=== PATIENT | female | born 1935 | race African-American/Black ===

== ENCOUNTER 2016-08-25 14:34 | Inpatient (IN) | payer OTHER ==
[~2016-08-25] VITALS: Ht 157.5 cm; Wt 73.9 kg
[~2016-08-25 14:34] MED LIST: ASPI81TA2 PO; ATOR20TA58 PO; DONE5TAB33 PO; FURO-68 PO; METO25TA4 PO; SENN8.6T99 PO; SERT100T PO
--- NOTE | 2016-08-25 14:45 | PHYS DOC ---
Past Medical History Past Medical History: Diabetes-Type II Additional Past Medical Histor: ALZHEIMER'S Past Surgical History: Other Additional Past Surgical Histo: UNKNOWN Alcohol Use: None Drug Use: None Adult General Chief Complaint Chief Complaint: SYNCOPE HPI HPI Patient is a 81 year old female who presents with syncope. She is a patient of Dr. Ryan who is a history of syncopal episodes. First and started around 2 months ago she was hospitalized and then had a non-STEMI and had a workup. She' s had 2 syncopal episodes recently the first one was on the are she was out for quite some while and then today again for approximately 30 minutes. According to her sister she was sitting at the table and this fell forward and passed out, the patient denies any neck pain or headache. She presented to Dr. Ryan's office who wanted her to be evaluated in the emergency department. Currently she denies any fevers chills nausea vomiting shortness of breath. He also complains about right thigh pain however she is on able to tell me how long this is been hurting her. According to her sister she is in a wheelchair and does not ambulate. She did have a stress test on her last hospital visit which is below. [facility] [address] [place], [place] [id number] IMAGING REPORT Signed PATIENT: DIVYA DALE ACCOUNT: [id number] : 1935 LOCATION: [address] [place] [address] AGE: 81 SEX: F EXAM STATUS: ADM IN ORD. PHYSICIAN: VAN CALLAHAN APRN REASON: NSTEMI PROCEDURE: Left Heart Catheterization &LV APPROVED REPORT Procedure(s) performed: Left heart catheterization, selective coronary angiography and left ventriculography via the right transradial approach INDICATION The indication(s) include : non-STEMI . PROCEDURE NARRATIVE After explaining the risks, benefits and alternative options, informed consent was obtained from patient. Patient was brought to the cardiac Visitor Services Coordinator and right wrist was prepped and draped in the usual fashion after confirming a positive modified Heath's test. Arterial access was obtained in the right radial artery and a 6 Romanian sheath was inserted. 6 Romanian JL 3.5 and 6 Romanian Gavino catheters were used to perform selective angiography of left and right coronary arteries. 6 Romanian pigtail catheter was used to perform left ventriculography. Patient tolerated the procedure well. Hemostasis was achieved using TR band. There were no immediate complications. The following findings were noted. FINDINGS 1. Hemodynamics: Left ventricular end-diastolic pressure of 17 mmHg. No pullback gradient across the aortic valve. 2. Left ventriculography: Normal left ventricle systolic function with ejection fraction estimated at 60-65%. No significant mitral regurgitation seen. 3. Coronary angiography: a. The left main coronary artery arose from the left sinus of Valsalva, gave rise to the left anterior descending and left circumflex arteries and did not show any significant stenosis. b. The left anterior descending artery showed 30% stenosis in the midsegment. c. The left circumflex artery did not show any significant stenosis. d. The right coronary artery was a large and dominant vessel arising from the right sinus of Valsalva that showed long 20-30% stenosis in the proximal to midsegment. Conclusion 1. No significant coronary artery disease 2. Normal left ventricle systolic function with ejection fraction estimated at 60-65% Recommendations Patient's non-STEMI could be secondary to vasospasm or thrombus that has been lysed. She does not have any lesions that need intervention. Recommend medical therapy. DICTATED and SIGNED BY: EV AVILA MD DATE: 06/03/16 1126 CC: VAN CALLAHAN APRN; EV AVILA MD; JADIEL RYAN MD ~ Review of Systems Review of Systems Constitutional: Denies fever or chills [] Eyes: Denies change in visual acuity, redness, or eye pain [] HENT: Denies nasal congestion or sore throat [] Respiratory: Denies cough or shortness of breath [] Cardiovascular: No additional information not addressed in HPI [] GI: Denies abdominal pain, nausea, vomiting, bloody stools or diarrhea [] : Denies dysuria or hematuria [] Musculoskeletal: Denies back pain or joint pain [] Integument: Denies rash or skin lesions [] Neurologic: Denies headache, focal weakness or sensory changes [] Endocrine: Denies polyuria or polydipsia [] Current Medications Current Medications Current Medications Medications (Trade) Dose Ordered Sig/Jesus Start Time Stop Time Status Last Admin Dose Admin Lorazepam (Ativan) 0.5 mg 1X ONCE 08/25/16 15:45 08/25/16 15:46 DC 08/25/16 15:46 0.5 MG Ondansetron HCl (Zofran) 4 mg PRN Q8HRS PRN 08/25/16 17:30 08/26/16 17:29 Allergies Allergies Allergies Coded Allergies Type Severity Reaction Last Updated Verified No Known Drug Allergies 06/02/16 No Physical Exam Physical Exam Constitutional: Well developed, well nourished, no acute distress, non-toxic appearance. [] HENT: Normocephalic, atraumatic, bilateral external ears normal, oropharynx moist, no oral exudates, nose normal. [] Eyes: PERRLA, EOMI, conjunctiva normal, no discharge. [] Neck: Normal range of motion, no tenderness, supple, no stridor. [] Cardiovascular:Heart rate regular rhythm, no murmur [] Lungs & Thorax: Bilateral breath sounds clear to auscultation [] Abdomen: Bowel sounds normal, soft, no tenderness, no masses, no pulsatile masses. [] Skin: Warm, dry, no erythema, no rash. [] Back: No tenderness, no CVA tenderness. [] Extremities: Tenderness palpation around the right thigh without any obvious deformity, no cyanosis, no clubbing, ROM intact, no edema. [] Neurologic: Alert and her active, normal motor function, normal sensory function , no focal deficits noted. [] Psychologic: Affect normal, judgement normal, mood normal. [] Current Patient Data Vital Signs Vital Signs Date Time Temp Pulse Resp B/P Pulse Ox O2 Delivery O2 Flow Rate FiO2 08/25/16 16:59 65 15 125/60 95 Room Air 08/25/16 14:37 97.9 97.9 Lab Values Laboratory Tests Test 08/25/16 15:20 08/25/16 15:45 Urine Collection Type U cath Urine Color Yellow Urine Clarity Clear Urine pH 5.0 Urine Specific [place] 1.010 Urine Protein Negativemg/dL (NEG-TRACE) Urine Glucose (UA) Negativemg/dL (NEG) Urine Ketones (Stick) Negativemg/dL (NEG) Urine Blood Trace (NEG) Urine Nitrite Negative (NEG) Urine Bilirubin Negative (NEG) Urine Urobilinogen Dipstick 0.2mg/dL (0.2 mg/dL) Urine Leukocyte Esterase Small (NEG) Urine RBC Occ/HPF (0-2) Urine WBC 1-4/HPF (0-4) Urine Squamous Epithelial Cells Mod/LPF Urine Bacteria 0/HPF (0-FEW) Urine Hyaline Casts Many/HPF White Blood Count 5.8x10^3/uL (4.0-11.0) Red Blood Count 3.91x10^6/uL (3.50-5.40) Hemoglobin 11.2g/dL (12.0-15.5) L Hematocrit 33.0% (36.0-47.0) L Mean Corpuscular Volume 84fL (79-100) Mean Corpuscular Hemoglobin 29pg (25-35) Mean Corpuscular Hemoglobin Concent 34g/dL (31-37) Red Cell Distribution Width 17.2% (11.5-14.5) H Platelet Count 227x10^3/uL (140-400) Neutrophils (%) (Auto) 69% (31-73) Lymphocytes (%) (Auto) 21% (24-48) L Monocytes (%) (Auto) 9% (0-9) Eosinophils (%) (Auto) 1% (0-3) Basophils (%) (Auto) 0% (0-3) Neutrophils # (Auto) 4.0x10^3uL (1.8-7.7) Lymphocytes # (Auto) 1.2x10^3/uL (1.0-4.8) Monocytes # (Auto) 0.5x10^3/uL (0.0-1.1) Eosinophils # (Auto) 0.1x10^3/uL (0.0-0.7) Basophils # (Auto) 0.0x10^3/uL (0.0-0.2) Prothrombin Time 12.9SEC (11.7-14.0) Prothrombin Time INR 1.0 (0.8-1.1) Sodium Level 139mmol/L (136-145) Potassium Level 3.6mmol/L (3.5-5.1) Chloride Level 103mmol/L (98-107) Carbon Dioxide Level 26mmol/L (21-32) Anion Gap 10 (6-14) Blood Urea Nitrogen 28mg/dL (7-20) H Creatinine 1.6mg/dL (0.6-1.0) H Estimated GFR (Cockcroft-Gault) 37.2 Glucose Level 94mg/dL (70-99) Calcium Level 9.1mg/dL (8.5-10.1) Magnesium Level 1.7mg/dL (1.8-2.4) L Total Bilirubin 0.4mg/dL (0.2-1.0) Direct Bilirubin 0.1mg/dL (0.0-0.2) Aspartate Amino Transferase (AST) 17U/L (15-37) Alanine Aminotransferase (ALT) 17U/L (14-59) Alkaline Phosphatase 74U/L (46-116) Creatine Kinase 53U/L (26-192) Creatine Kinase MB (Mass) < 0.5ng/mL (0.0-3.6) Creatine Kinase MB Relative Index 0.9% (0-4) Troponin I Quantitative < 0.017ng/mL (0.000-0.055) YC-Grn-E-Type Natriuretic Peptide 124pg/mL (0-449) Total Protein 7.8g/dL (6.4-8.2) Albumin 3.7g/dL (3.4-5.0) Thyroid Stimulating Hormone (TSH) 1.599uIU/mL (0.358-3.74) Laboratory Tests 08/25/16 15:45 Laboratory Tests 08/25/16 15:45 EKG EKG EKG shows sinus rhythm with rate [address] elevations, T-wave inversion noted in 1, aVL, left axis deviation, QTC 421 ms, 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 Radiology/Procedures Radiology/Procedures [facility] [address] [place] [address] IMAGING REPORT Signed PATIENT: NANETTE HIGH ACCOUNT: [id number] : 1935 LOCATION: ER AGE: 81 SEX: F EXAM STATUS: PRE ER ORD. PHYSICIAN: HEATH WILLIS MD REASON: syncope PROCEDURE: PORTABLE CHEST 1V Exam: AP portable chest. History: Syncope at home, weakness and chest pain since previous day. Comparison: 06/02/2016. Findings: The heart and mediastinal structures are within normal limits for size. Lungs are without infiltrate. No pneumothorax or pleural effusion is appreciated. Aortic atherosclerosis is noted. 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 Impression: 1. No acute cardiopulmonary process. DICTATED and SIGNED BY: BELLA LUNDBERG MD DATE: 08/25/16 1533 CC: HEATH WILLIS MD; JADIEL RYAN MD ~ [place] [id number] IMAGING REPORT Signed PATIENT: NANETTE HIGH ACCOUNT: [id number] : 1935 LOCATION: ER AGE: 81 SEX: F EXAM STATUS: REG ER ORD. PHYSICIAN: HEATH WILLIS MD REASON: RT LEG PAIN PROCEDURE: VENOUS LOWER EXTREMITY RIGHT Right lower extremity venous ultrasound, 08/25/2016 : History: Right leg pain Duplex evaluation including grayscale, color flow and spectral Doppler analysis was performed. The femoral and popliteal veins show no filling defects to suggest DVT. The visualized calf veins are unremarkable. IMPRESSION: There is no sonographic evidence of deep vein thrombosis in the right lower extremity DICTATED and SIGNED BY: YU BUI MD DATE: 08/25/16 1639 CC: HEATH WILLIS MD; JADIEL RYAN MD ~ [place] [id number] IMAGING REPORT Signed PATIENT: NANETTE HIGH ACCOUNT: [id number] : 1935 LOCATION: ER AGE: 81 SEX: F EXAM STATUS: REG ER ORD. PHYSICIAN: HEATH WILLIS MD REASON: pain PROCEDURE: RIGHT FEMUR XRAY Right femur radiographs History: Pain in the proximal lower extremity. Comparison: None. Findings: AP and lateral views of the right femur. On the lateral view, there appears to be osseous irregularity of the distal femur versus the patella. Arterial calcifications are seen. Impression: Abnormal appearance of the distal femur versus patella. Fracture is possible. Recommend dedicated 3 view radiographs of the knee. DICTATED and SIGNED BY: BELLA LUNDBERG MD DATE: 08/25/16 6621 CC: HEATH WILLIS MD; JADIEL RYAN MD ~ Impressions: Syncope Right thigh pain Course & Med Decision Making Course & Med Decision Making Pertinent Labs and Imaging studies reviewed. (See chart for details) She does have new T-wave inversions in 1 and aVL on her EKG. Spoke with Dr. Ryan who once cardiology and neurology consult. Patient is being admitted she still has x-rays of her right knee pending as or could be a fracture of her distal femur versus knee. Ultrasound of the right lower show many did not show any DVT. She is in stable condition at this time agreeable to plan. Interim orders have been written. Dragon Disclaimer Dragon Disclaimer This electronic medical record was generated, in whole or in part, using a voice recognition dictation system. Departure Departure Impression: Primary Impression: Syncope Disposition: ADMITTED INPATIENT Admitting Physician: Jadiel Ryan Condition: STABLE Referrals: JADIEL RYAN MD (PCP) HEATH WILLIS MD Aug 25, 2016 14:44
--- NOTE | 2016-08-25 15:10 | EKG ---
[facility] [address] [place] [address] Test Date: 2016-08-25 Test Time: 14:58:38 Pat Name: NANETTE HIGH Department: Room: Gender: F Care Manager Cna: : 1935 Requested By: CHUCHO WILLIS Order Number: [id number] Reading MD: Edis Vieira Measurements Intervals [place] Rate: 64 P: 34 LA: 186 QRS: -11 QRSD: 78 T: 119 QT: 404 QTc: 421 Interpretive Statements SINUS RHYTHM NON-SPECIFIC ST/T CHANGES LAD POSSIBLE LVH Electronically Signed On 08-26-2016 17:56:35 CDT by Edis Vieira
[2016-08-25 15:31] LABS: BILIRUBIN,URINE NEGATIVE (NEG); GLUCOSE,URINE NEGATIVE (NEG); NITRITE,URINE NEGATIVE (NEG); PROTEIN,URINE NEGATIVE (NEG-TRACE); UROBILINOGEN,URINE 0.2 mg/dL (0.2 mg/dL)
--- NOTE | 2016-08-25 15:36 | RAD ---
Exam: AP portable chest. History: Syncope at home, weakness and chest pain since previous day. Comparison: 06/02/2016. Findings: The heart and mediastinal structures are within normal limits for size. Lungs are without infiltrate. No pneumothorax or pleural effusion is appreciated. Aortic atherosclerosis is noted. 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 Impression: 1. No acute cardiopulmonary process.
[2016-08-25 15:41] LABS: BACTERIA,URINE 0 /HPF (0-FEW); RBC,URINE OCC /HPF (0-2); SQUAMOUS EPITHELIAL CELL,UR MOD /LPF
[2016-08-25] MEDS ORDERED: LORAZEPAM 2 MG/ML VIAL. IV ONE (15:45)
[2016-08-25 15:56] LABS: BASO % 0 % (0-3); EOS % 1 % (0-3); HEMOGLOBIN 11.2 g/dL (12.0-15.5); LYMPH # 1.2 x10^3/uL (1.0-4.8); LYMPH % 21 % (24-48); MEAN CORPUSCULAR HEMOGLOBIN 29 pg (25-35); MEAN CORPUSCULAR HGB CONC 34 g/dL (31-37); MEAN CORPUSCULAR VOLUME 84 fL (79-100); MONO % 9 % (0-9); NEUT % 69 % (31-73); PLATELET COUNT 227 x10^3/uL (140-400); RED BLOOD COUNT 3.91 x10^6/uL (3.50-5.40); RED CELL DISTRIBUTION WIDTH 17.2 % (11.5-14.5); WHITE BLOOD COUNT 5.8 x10^3/uL (4.0-11.0)
[2016-08-25 16:06] LABS: PROTHROMBIN TIME PATIENT 12.9 SEC (11.7-14.0)
[2016-08-25 16:13] LABS: CALCIUM 9.1 mg/dL (8.5-10.1); CREATININE 1.6 mg/dL (0.6-1.0); GFR 37.2; POTASSIUM 3.6 mmol/L (3.5-5.1)
[2016-08-25 16:19] LABS: ALBUMIN 3.7 g/dL (3.4-5.0); DIRECT BILIRUBIN 0.1 mg/dL (0.0-0.2); MAGNESIUM 1.7 mg/dL (1.8-2.4); TOTAL BILIRUBIN 0.4 mg/dL (0.2-1.0); TOTAL PROTEIN 7.8 g/dL (6.4-8.2)
--- NOTE | 2016-08-25 16:25 | RAD ---
Right femur radiographs History: Pain in the proximal lower extremity. Comparison: None. Findings: AP and lateral views of the right femur. On the lateral view, there appears to be osseous irregularity of the distal femur versus the patella. Arterial calcifications are seen. Impression: Abnormal appearance of the distal femur versus patella. Fracture is possible. Recommend dedicated 3 view radiographs of the knee.
[2016-08-25 16:26] LABS: CREATINE KINASE 53 U/L (26-192)
[2016-08-25 16:29] LABS: CKMB MASS < 0.5 ng/mL (0.0-3.6)
--- NOTE | 2016-08-25 16:42 | RAD ---
Right lower extremity venous ultrasound, 08/25/2016 : History: Right leg pain Duplex evaluation including grayscale, color flow and spectral Doppler analysis was performed. The femoral and popliteal veins show no filling defects to suggest DVT. The visualized calf veins are unremarkable. IMPRESSION: There is no sonographic evidence of deep vein thrombosis in the right lower extremity
[2016-08-25] MEDS ORDERED: ONDANSETRON PF 4 MG/2 ML VIAL. IV PRN (17:30)
--- NOTE | 2016-08-25 17:31 | RAD ---
Right knee with patella, 4 views, 08/25/2016: History: Knee pain There is patchy bony demineralization. There is mild spurring at the knee joint and at the patellofemoral articulation. No acute fracture or dislocation is identified. No joint effusion is evident. Moderate arterial calcifications are noted. IMPRESSION: 1. Mild degenerative change. 2. No acute bony abnormality is detected.
--- NOTE | 2016-08-25 18:16 | ACF ---
Admission Forms Criteria SYNCOPE Clinical Indications for Admission to Inpatient Care ( Place 'X' for any and all applicable criteria): Admission is indicated for syncope and ANY ONE of the following (1)(2)(3)(4)(5) (6)(7) : [X]I. Inpatient admission required rather than observation care (Also use Syncope: Observation Care Criteria as appropriate) because of ANY ONE of the following: [ ]a) Hemodynamic instability that is severe or persistent [ ]b) Cardiac arrhythmias of immediate concern identified or strongly suspected (eg, needs electrophysiologic study) [ ]c) Acute coronary syndrome identified (Also use Myocardial Infarction or Angina Criteria form ) [ ]d) Structural cardiac disorder (eg, aortic stenosis) suspected as cause that requires immediate correction [ ]e) Respiratory symptoms (eg, dyspnea, tachypnea) that are severe or persistent [ ]f) Neurologic signs or symptoms that are severe or persistent ( eg, stroke, seizures, altered mental status) [ ]g) Severe electrolyte abnormalities requiring inpatient care [ ]h) Supplemental oxygen or respiratory treatment for over 24 hrs that are performable only in acute inpatient setting [ ]i) IV fluid to replace significant ongoing (eg, for over 24 hrs ) losses (>3 L/m2 per day) [ ]j) Continuous intravenous infusion of anticoagulation, platelet inhibitor, vasoactive, or antiarrhythmic medication(15)(16) [ ]k) Pulmonary artery catheter monitoring [ ]l) Temporary pacemaker placement(17) [ ]m) Emergent cardioversion(18) [X]n) Other conditions, treatment or monitoring requiring inpatient admission [ ]II. Suspicion of imminently dangerous cause (eg, rare causes like pericardial tamponade, pulmonary embolism) [ ]III. Syncope causing severe injury requiring hospitalization Extended stay beyond goal length of stay may be needed for(28) [ ]a) Dangerous arrhythmia(15)(23)(27)(29) [ ]b) Myocardial ischemia [ ]c) Seizure disorder [ ]d) Syncope-related injuries The original [employer] content created by [employer] has been revised. The portions of the content which have been revised are identified through the use of italic text or in bold, and [employer] has neither reviewed nor approved the modified material. All other unmodified content is copyright [employer]. Please see references footnoted in the original [facility] edition 2016 Admission Criteria Met?: Yes [place] Aug 25, 2016 18:15
--- NOTE | 2016-08-25 18:22 | PDOC2 ---
NEUROLOGY CONSULT Date of Admission Date of Admission DATE: 08/25/16 TIME: 18:10 Reason for Consult Reason for Consult: IMPRESSION: Syncopal spell, cardiac or neurological? CVA evaluation. Confusion. CAD NSTEMI recently. Ischemic heart disease. DM Renal failure. Dementia Pain in right thigh and knees Degenerative joint disease. RECOMMENDATIONS/PLAN: Brain MRI w/o contrast. EEG Lab: see orders. Treat medical diseases. OT/PT HISTORY OF THE PRESENT ILLNESS: 81-y-old AA female patient with recent Hx of [place] and other medical diseases had several syncopal spells and 2 were a few days ago may also has some MS changes. The patient has dementia and is unable to provide information or history about her syncopal spells. Patient was seen in the ER and no family member presented at the time of exam. PAST MEDICAL HISTORY: Please see above. PAST SURGERY HISTORY: No major surgery recently. ALLERGY: Unknown MEDICATIONS: Refer to [facility] FAMILY HISTORY: Non contributory. SOCIAL HISTORY: Denies current smoking, drinking, and illicit drug use. REVIEW OF SYSTEMS: Constitutional: No malnutrition, weight loss, cachexia. Head: No traumatic brain or head injury. Skin: No edema, or rash. Ear: No infection. Eyes: No vision loss or color blindness. Nose: No bleeding or purulent discharges. Hearing: Hearing decrease. Neck: No injury. Breast: No history of cancer, masses,or discharges. Cardiac: [place], CAD. Pulmonary: No COPD. GI: No GI ulcer, GI bleeding. Urinary/genital: UTI. Endocrinologic: Diabetes Mellitus. Skeletomuscular: No muscular atrophy, deformity. Neurological: see HP. Psychiatric: Denies drug use/abuse. Otherwise, not [id number] review of systems. PHYSICAL EXAMINATION: General appearance is in subacute distress. HEENT: Normocephalic and nontraumatic. Eyes, nose, ears, and throat are unremarkable. Neck is supple. No lymphadenopathy. No crepitus. Cardiovascular: S1, S2, seemed regular rate and rhythm. Pulmonary: seemed clear to auscultation bilaterally. Abdomen: Bowel sounds are positive. Extremities: No rash, lesions, or edema. No restriction of range of motion NEUROLOGICAL EXAMINATION: Awake. Unable to communicate. Unable to follow commands. Not oriented to time, place and person. PERRL. EOMI. CN: no focal findings. Muscle tone: Mildly increased. Muscle strength: 4 DTR: 1-2 Plantar reflex: Neutral response bilaterally Gait: not examined in bed. Sensory exam: no acute findings, but patient was unable to answer questions correctly. No able to acces cerebellar signs due to not follow commands.. F-T-N test not performed due to not follow commands.. Current Medications Current Medications Current Medications Lorazepam (Ativan) 0.5 mg 1X ONCE IV Last administered on 08/25/16t 15:46; Start 08/25/16 at 15:45; Stop 08/25/16 at 15:46; Status DC Ondansetron HCl (Zofran) 4 mg PRN Q8HRS PRN IV NAUSEA/VOMITING; Start 08/25/16 at 17:30; Stop 08/26/16 at 17:29 Active Scripts Active Metoprolol Tartrate 25 Mg Tablet 12.5 Mg PO BID 30 Days Reported Senokot (Sennosides) 8.6 Mg Tablet 1 Tab PO BID Lasix (Furosemide) 40 Mg Tablet 1 Tab PO DAILY Atorvastatin Calcium 20 Mg Tablet 1 Tab PO HS Aricept (Donepezil Hcl) 5 Mg Tablet 1 Tab PO QHS Aspirin 81 Mg Tab.chew 1 Tab PO DAILY Zoloft (Sertraline Hcl) 100 Mg Tablet 1 Tab PO HS Allergies Allergies: Coded Allergies: No Known Drug Allergies (Unverified , 06/02/16) Vitals VITALS Vital Signs Date Time Temp Pulse Resp B/P Pulse Ox O2 Delivery O2 Flow Rate FiO2 08/25/16 16:59 65 15 125/60 95 Room Air 08/25/16 14:37 97.9 97.9 Labs Labs Laboratory Tests Test 08/25/16 15:20 08/25/16 15:45 Urine Collection Type U cath Urine Color Yellow Urine Clarity Clear Urine pH 5.0 Urine Specific [place] 1.010 Urine Protein Negativemg/dL (NEG-TRACE) Urine Glucose (UA) Negativemg/dL (NEG) Urine Ketones (Stick) Negativemg/dL (NEG) Urine Blood Trace (NEG) Urine Nitrite Negative (NEG) Urine Bilirubin Negative (NEG) Urine Urobilinogen Dipstick 0.2mg/dL (0.2 mg/dL) Urine Leukocyte Esterase Small (NEG) Urine RBC Occ/HPF (0-2) Urine WBC 1-4/HPF (0-4) Urine Squamous Epithelial Cells Mod/LPF Urine Bacteria 0/HPF (0-FEW) Urine Hyaline Casts Many/HPF White Blood Count 5.8x10^3/uL (4.0-11.0) Red Blood Count 3.91x10^6/uL (3.50-5.40) Hemoglobin 11.2g/dL (12.0-15.5) Hematocrit 33.0% (36.0-47.0) Mean Corpuscular Volume 84fL (79-100) Mean Corpuscular Hemoglobin 29pg (25-35) Mean Corpuscular Hemoglobin Concent 34g/dL (31-37) Red Cell Distribution Width 17.2% (11.5-14.5) Platelet Count 227x10^3/uL (140-400) Neutrophils (%) (Auto) 69% (31-73) Lymphocytes (%) (Auto) 21% (24-48) Monocytes (%) (Auto) 9% (0-9) Eosinophils (%) (Auto) 1% (0-3) Basophils (%) (Auto) 0% (0-3) Neutrophils # (Auto) 4.0x10^3uL (1.8-7.7) Lymphocytes # (Auto) 1.2x10^3/uL (1.0-4.8) Monocytes # (Auto) 0.5x10^3/uL (0.0-1.1) Eosinophils # (Auto) 0.1x10^3/uL (0.0-0.7) Basophils # (Auto) 0.0x10^3/uL (0.0-0.2) Prothrombin Time 12.9SEC (11.7-14.0) Prothromb Time International Ratio 1.0 (0.8-1.1) Sodium Level 139mmol/L (136-145) Potassium Level 3.6mmol/L (3.5-5.1) Chloride Level 103mmol/L (98-107) Carbon Dioxide Level 26mmol/L (21-32) Anion Gap 10 (6-14) Blood Urea Nitrogen 28mg/dL (7-20) Creatinine 1.6mg/dL (0.6-1.0) Estimated GFR (Cockcroft-Gault) 37.2 Glucose Level 94mg/dL (70-99) Calcium Level 9.1mg/dL (8.5-10.1) Magnesium Level 1.7mg/dL (1.8-2.4) Total Bilirubin 0.4mg/dL (0.2-1.0) Direct Bilirubin 0.1mg/dL (0.0-0.2) Aspartate Amino Transf (AST/SGOT) 17U/L (15-37) Alanine Aminotransferase (ALT/SGPT) 17U/L (14-59) Alkaline Phosphatase 74U/L (46-116) Creatine Kinase 53U/L (26-192) Creatine Kinase MB (Mass) < 0.5ng/mL (0.0-3.6) Creatine Kinase MB Relative Index 0.9% (0-4) Troponin I Quantitative < 0.017ng/mL (0.000-0.055) UM-Xpd-C-Type Natriuretic Peptide 124pg/mL (0-449) Total Protein 7.8g/dL (6.4-8.2) Albumin 3.7g/dL (3.4-5.0) Thyroid Stimulating Hormone (TSH) 1.599uIU/mL (0.358-3.74) Laboratory Tests Test 08/25/16 15:20 08/25/16 15:45 Urine Collection Type U cath Urine Color Yellow Urine Clarity Clear Urine pH 5.0 Urine Specific [place] 1.010 Urine Protein Negativemg/dL (NEG-TRACE) Urine Glucose (UA) Negativemg/dL (NEG) Urine Ketones (Stick) Negativemg/dL (NEG) Urine Blood Trace (NEG) Urine Nitrite Negative (NEG) Urine Bilirubin Negative (NEG) Urine Urobilinogen Dipstick 0.2mg/dL (0.2 mg/dL) Urine Leukocyte Esterase Small (NEG) Urine RBC Occ/HPF (0-2) Urine WBC 1-4/HPF (0-4) Urine Squamous Epithelial Cells Mod/LPF Urine Bacteria 0/HPF (0-FEW) Urine Hyaline Casts Many/HPF White Blood Count 5.8x10^3/uL (4.0-11.0) Red Blood Count 3.91x10^6/uL (3.50-5.40) Hemoglobin 11.2g/dL (12.0-15.5) Hematocrit 33.0% (36.0-47.0) Mean Corpuscular Volume 84fL (79-100) Mean Corpuscular Hemoglobin 29pg (25-35) Mean Corpuscular Hemoglobin Concent 34g/dL (31-37) Red Cell Distribution Width 17.2% (11.5-14.5) Platelet Count 227x10^3/uL (140-400) Neutrophils (%) (Auto) 69% (31-73) Lymphocytes (%) (Auto) 21% (24-48) Monocytes (%) (Auto) 9% (0-9) Eosinophils (%) (Auto) 1% (0-3) Basophils (%) (Auto) 0% (0-3) Neutrophils # (Auto) 4.0x10^3uL (1.8-7.7) Lymphocytes # (Auto) 1.2x10^3/uL (1.0-4.8) Monocytes # (Auto) 0.5x10^3/uL (0.0-1.1) Eosinophils # (Auto) 0.1x10^3/uL (0.0-0.7) Basophils # (Auto) 0.0x10^3/uL (0.0-0.2) Prothrombin Time 12.9SEC (11.7-14.0) Prothromb Time International Ratio 1.0 (0.8-1.1) Sodium Level 139mmol/L (136-145) Potassium Level 3.6mmol/L (3.5-5.1) Chloride Level 103mmol/L (98-107) Carbon Dioxide Level 26mmol/L (21-32) Anion Gap 10 (6-14) Blood Urea Nitrogen 28mg/dL (7-20) Creatinine 1.6mg/dL (0.6-1.0) Estimated GFR (Cockcroft-Gault) 37.2 Glucose Level 94mg/dL (70-99) Calcium Level 9.1mg/dL (8.5-10.1) Magnesium Level 1.7mg/dL (1.8-2.4) Total Bilirubin 0.4mg/dL (0.2-1.0) Direct Bilirubin 0.1mg/dL (0.0-0.2) Aspartate Amino Transf (AST/SGOT) 17U/L (15-37) Alanine Aminotransferase (ALT/SGPT) 17U/L (14-59) Alkaline Phosphatase 74U/L (46-116) Creatine Kinase 53U/L (26-192) Creatine Kinase MB (Mass) < 0.5ng/mL (0.0-3.6) Creatine Kinase MB Relative Index 0.9% (0-4) Troponin I Quantitative < 0.017ng/mL (0.000-0.055) OY-Hlz-V-Type Natriuretic Peptide 124pg/mL (0-449) Total Protein 7.8g/dL (6.4-8.2) Albumin 3.7g/dL (3.4-5.0) Thyroid Stimulating Hormone (TSH) 1.599uIU/mL (0.358-3.74) AIRAM LAM MD Aug 25, 2016 18:22
[2016-08-25 20:00] VITALS: BP 122/60
[2016-08-25 23:00] VITALS: BP 120/60
[2016-08-26 03:00] VITALS: BP 132/56
[2016-08-26 07:10] VITALS: BP 123/60
[2016-08-26] MEDS ORDERED: ASPIRIN CHEWABLE 81 MG TABLET. PO SCH (09:00)
[2016-08-26] MEDS ORDERED: FUROSEMIDE 40 MG TABLET. PO SCH (09:00)
--- NOTE | 2016-08-26 09:18 | RAD ---
PROCEDURE Brain MRI without contrast. HISTORY Dementia. TECHNIQUE Multiplanar and multi sequence magnetic resonance imaging of the brain was performed without contrast. COMPARISON None. FINDINGS The exam is limited due to motion. There is no restricted diffusion to suggest acute or subacute infarction. There is no susceptibility effect to suggest hemorrhage. There is no mass effect or midline shift. There is no hydrocephalus. There are focal areas of signal change throughout the cerebral white matter, a nonspecific finding likely due to chronic small vessel disease. There is cerebral volume loss with compensatory enlargement of the ventricles. The orbits are unremarkable. There is focal mucosal thickening or a mucous retention cyst within the junction of the right posterior ethmoid sinus and sphenoid sinus. There are normal flow voids within the cerebral vessels. IMPRESSION 1. Limited exam due to motion. 2. Signal change within the cerebral white matter, a nonspecific finding likely due to chronic small vessel disease. 3. Cerebral volume loss. Electronically signed by: Florecita Cowan (Aug 26, 2016 09:17:27)
[2016-08-26] MEDS ORDERED: MAGNESIUM SULFATE 2GM 50 ML IV ONE (09:30)
[2016-08-26] MEDS: SERTRALINE 50 MG TABLET. PO SCH (09:57)
[2016-08-26] MEDS: METOPROLOL TART IMMED RELEASE 25 MG TABLET. PO SCH ×2 (09:57→21:10)
--- NOTE | 2016-08-26 10:02 | PDOC ---
Provider Note Provider Note Patient seen. History and Physical dictated. See dictation# [id number]. DONNA BAEZA MD Aug 26, 2016 10:02
[2016-08-26 10:30] VITALS: BP 98/45
[2016-08-26 11:09] LABS: BASO % 0 % (0-3); EOS % 1 % (0-3); HEMATOCRIT 30.7 % (36.0-47.0); HEMOGLOBIN 10.4 g/dL (12.0-15.5); LYMPH # 1.2 x10^3/uL (1.0-4.8); LYMPH % 24 % (24-48); MEAN CORPUSCULAR HEMOGLOBIN 29 pg (25-35); MEAN CORPUSCULAR HGB CONC 34 g/dL (31-37); MEAN CORPUSCULAR VOLUME 85 fL (79-100); MONO % 8 % (0-9); NEUT % 67 % (31-73); PLATELET COUNT 210 x10^3/uL (140-400); RED BLOOD COUNT 3.62 x10^6/uL (3.50-5.40); RED CELL DISTRIBUTION WIDTH 16.8 % (11.5-14.5); WHITE BLOOD COUNT 4.9 x10^3/uL (4.0-11.0)
--- NOTE | 2016-08-26 11:13 | HP ---
ADMIT DATE: 08/26/2016 SUBJECTIVE: None. HISTORY OF PRESENT ILLNESS: This is an 81 years old -Tongan female passed out at home on 08/20/2016 and at that time she passed out for several hours. Yesterday, around 11:00 a.m., the patient passed out for about 30 minutes. She went limp and unresponsive. She did not have any seizures and prior to that she did not complain of any chest pains, palpitations, dyspnea, dizziness or diaphoresis. Because of that, the patient's daughter brought her to the office. The patient has dementia, so she is unable to provide any information. The patient was recently admitted to [facility] in June for syncope and at that time she had a non-ST elevation myocardial infarction. Cardiac workup was otherwise negative. She had cardiac catheterization that showed mild coronary artery disease. The patient was discharged home and was doing well until this week when she started passing out again. I sent the patient to the Emergency Room and because of the syncope, the patient has been admitted for further evaluation and management. SYSTEMS REVIEW: The patient is confused. I am unable to get any information from her. As per daughter, when I talked to her yesterday, she stated that the patient has had no complaints of dyspnea, dizziness, chest pains, palpitation, weakness, fever, cold, cough, abdominal pain, nausea, vomiting, leg pain, or any other issues. Other systems reviewed and are negative. PAST MEDICAL HISTORY: As noted earlier, the patient was admitted here recently in June. At that time, she was treated for syncope. Workup showed non-ST elevation [place] and mild coronary artery disease. She had cardiac catheterization. She has a history of hypertension, hyperlipidemia, Alzheimer's disease, constipation, anemia, osteoarthritis, chronic kidney disease stage 3. PAST SURGICAL HISTORY: No pertinent history. FAMILY HISTORY: Coronary artery disease in father and diabetes. SOCIAL HISTORY: Lives with family. No history of smoking, alcoholism or drug abuse. MEDICATIONS: Reviewed. ALLERGIES: None known any. PHYSICAL EXAMINATION: GENERAL: The patient is an elderly -Tongan female who is alert, forgetful and not in any acute distress. VITAL SIGNS: Temperature 96.3, pulse 57 per minute, respirations 18 per minute, blood pressure 123/60 mmHg. HEENT: The patient is alert, confused, not in any acute distress. LUNGS: Clear. CARDIOVASCULAR: S1, S2 regular. ABDOMEN: Soft, nontender, no guarding, no rigidity. Bowel sounds present. EXTREMITIES: No edema. CENTRAL NERVOUS SYSTEM: Confused, moves all extremities. No focal neurovascular deficit noted. HENT: Unremarkable. NECK: JVP normal. No thyromegaly. Trachea midline. SKIN: Warm and dry. LABORATORY FINDINGS: WBC count 5.8, hemoglobin 11.2. Cardiac enzymes are normal. Vitamin B12 is 426. TSH is 1.599. Sodium 139, potassium 3.6, BUN 28, creatinine 1.6, magnesium 1.7. IMPRESSION: 1. Syncope, etiology not clear. 2. Dementia, Alzheimer's disease. 3. Coronary artery disease. 4. Hypertension. 5. Recent non-ST elevation myocardial infarction. 6. Mild hypomagnesemia. 7. Mild hypokalemia. 8. Osteoarthritis. PLAN: Admit to the hospital. Consult Dr. Green. MRI has been ordered. The patient may need further workup depending on her condition. Cardiology consult has been also obtained. Admit to the hospital, monitor her on structural steel painter, replace magnesium. For details, please review the orders. DONNA BAEZA MD DR: MARITZA/li JOB#: [id number] / [id number]
[2016-08-26 11:39] LABS: CALCIUM 8.9 mg/dL (8.5-10.1); CREATININE 1.6 mg/dL (0.6-1.0); GFR 37.2; POTASSIUM 3.5 mmol/L (3.5-5.1)
--- NOTE | 2016-08-26 12:06 | PDOC2 ---
VAN CALLAHAN [employer] POWER INSTALLER 08/26/16 1206: CARDIAC CONSULT DATE OF CONSULT Date of Consult DATE: 08/26/16 TIME: 11:22 REASON FOR CONSULT Reason for Consult: Syncope REFERRING PHYSICIAN Referring Physician: Lyla SOURCE Source: Chart review, Patient (poor historian) HISTORY OF PRESENT ILLNESS HISTORY OF PRESENT ILLNESS This is a pleasant and cooperative but confused 81 yo female admitted for witnessed unresponsiveness. She does not have any recollection before and after her syncopal episode. Per chart review she had syncopal episode on 08/20 then yesterday, she was sitting when she stooped over and fell forward while sitting. There was no notation if she fell out of the chair and family is not at the bedside to confirm. Her unresponsiveness lasted about 30 minutes. There was no notation of any obvious symptoms leading to the event. Currently she denies any discomfort and in no distress. PAST MEDICAL HISTORY Past Medical History Cardiovascular: Hyperlipidemia, syncope, recent NSTEMI (no significant coronory lesions) CENTRAL NERVOUS SYSTEM: Dementia Musculoskeletal: Osteoarthritis Renal/: Chronic renal insuff Endocrine: Diabetes (2) PAST SURGICAL HISTORY Past Surgical History: Other (06/2016 [facility]) FAMILY HISTORY Family History Coronary Artery Disease (father) SOCIAL HISTORY Smoke: No ALCOHOL: none Drugs: None Lives: with Family CURRENT MEDICATIONS CURRENT MEDICATIONS Current Medications Medications (Trade) Dose Ordered Sig/Jesus Route PRN Reason Start Time Stop Time Status Last Admin Dose Admin Lorazepam (Ativan) 0.5 mg 1X ONCE IV 08/25/16 15:45 08/25/16 15:46 DC 08/25/16 15:46 Aspirin (Children'S Aspirin) 81 mg DAILY PO 08/26/16 09:00 08/26/16 09:55 Furosemide (Lasix) 40 mg DAILY PO 08/26/16 09:00 08/26/16 09:55 Metoprolol Tartrate (Lopressor) 12.5 mg BID PO 08/26/16 09:00 08/26/16 09:57 Sertraline HCl (Zoloft) 100 mg DAILY PO 08/26/16 09:00 08/26/16 09:57 ALLERGIES ALLERGIES: Coded Allergies: No Known Drug Allergies (Unverified , 06/02/16) ROS Review of System poor historian PHYSICAL EXAM General: Alert, Oriented X3, Cooperative, No acute distress HEENT: Atraumatic, Mucous membr. moist/pink Lungs: Clear to auscultation, Normal air movement Heart: Regular rate (SR), Normal S1, Normal S2, Other (2/6 systolic murmur to LLS border) Abdomen: Soft, No tenderness Extremities: No cyanosis, Normal pulses Skin: No breakdown, No significant lesion Neuro: Sensation intact Psych/Mental Status: Mood NL, Other (confuse) MUSCULOSKELETAL: Osteoarthritic changes both hands VITALS VITALS Vital Signs Date Time Temp Pulse Resp B/P Pulse Ox O2 Delivery O2 Flow Rate FiO2 08/26/16 10:30 96.6 72 18 98/45 99 Room Air 96.6 LABS Lab: Laboratory Tests Test 08/25/16 15:20 08/25/16 15:45 08/26/16 10:45 Urine Collection Type U cath Urine Color Yellow Urine Clarity Clear Urine pH 5.0 Urine Specific [place] 1.010 Urine Protein Negativemg/dL (NEG-TRACE) Urine Glucose (UA) Negativemg/dL (NEG) Urine Ketones (Stick) Negativemg/dL (NEG) Urine Blood Trace (NEG) Urine Nitrite Negative (NEG) Urine Bilirubin Negative (NEG) Urine Urobilinogen Dipstick 0.2mg/dL (0.2 mg/dL) Urine Leukocyte Esterase Small (NEG) Urine RBC Occ/HPF (0-2) Urine WBC 1-4/HPF (0-4) Urine Squamous Epithelial Cells Mod/LPF Urine Bacteria 0/HPF (0-FEW) Urine Hyaline Casts Many/HPF White Blood Count 5.8x10^3/uL (4.0-11.0) 4.9x10^3/uL (4.0-11.0) Red Blood Count 3.91x10^6/uL (3.50-5.40) 3.62x10^6/uL (3.50-5.40) Hemoglobin 11.2g/dL (12.0-15.5) 10.4g/dL (12.0-15.5) Hematocrit 33.0% (36.0-47.0) 30.7% (36.0-47.0) Mean Corpuscular Volume 84fL (79-100) 85fL (79-100) Mean Corpuscular Hemoglobin 29pg (25-35) 29pg (25-35) Mean Corpuscular Hemoglobin Concent 34g/dL (31-37) 34g/dL (31-37) Red Cell Distribution Width 17.2% (11.5-14.5) 16.8% (11.5-14.5) Platelet Count 227x10^3/uL (140-400) 210x10^3/uL (140-400) Neutrophils (%) (Auto) 69% (31-73) 67% (31-73) Lymphocytes (%) (Auto) 21% (24-48) 24% (24-48) Monocytes (%) (Auto) 9% (0-9) 8% (0-9) Eosinophils (%) (Auto) 1% (0-3) 1% (0-3) Basophils (%) (Auto) 0% (0-3) 0% (0-3) Neutrophils # (Auto) 4.0x10^3uL (1.8-7.7) 3.3x10^3uL (1.8-7.7) Lymphocytes # (Auto) 1.2x10^3/uL (1.0-4.8) 1.2x10^3/uL (1.0-4.8) Monocytes # (Auto) 0.5x10^3/uL (0.0-1.1) 0.4x10^3/uL (0.0-1.1) Eosinophils # (Auto) 0.1x10^3/uL (0.0-0.7) 0.0x10^3/uL (0.0-0.7) Basophils # (Auto) 0.0x10^3/uL (0.0-0.2) 0.0x10^3/uL (0.0-0.2) Prothrombin Time 12.9SEC (11.7-14.0) Prothromb Time International Ratio 1.0 (0.8-1.1) Sodium Level 139mmol/L (136-145) Potassium Level 3.6mmol/L (3.5-5.1) Chloride Level 103mmol/L (98-107) Carbon Dioxide Level 26mmol/L (21-32) Anion Gap 10 (6-14) Blood Urea Nitrogen 28mg/dL (7-20) Creatinine 1.6mg/dL (0.6-1.0) Estimated GFR (Cockcroft-Gault) 37.2 Glucose Level 94mg/dL (70-99) Calcium Level 9.1mg/dL (8.5-10.1) Magnesium Level 1.7mg/dL (1.8-2.4) Total Bilirubin 0.4mg/dL (0.2-1.0) Direct Bilirubin 0.1mg/dL (0.0-0.2) Aspartate Amino Transf (AST/SGOT) 17U/L (15-37) Alanine Aminotransferase (ALT/SGPT) 17U/L (14-59) Alkaline Phosphatase 74U/L (46-116) Creatine Kinase 57U/L (26-192) Creatine Kinase MB (Mass) < 0.5ng/mL (0.0-3.6) Creatine Kinase MB Relative Index 0.9% (0-4) Troponin I Quantitative < 0.017ng/mL (0.000-0.055) SD-Ydx-R-Type Natriuretic Peptide 124pg/mL (0-449) Total Protein 7.8g/dL (6.4-8.2) Albumin 3.7g/dL (3.4-5.0) Vitamin B12 Level 426pg/mL (247-911) Thyroid Stimulating Hormone (TSH) 1.599uIU/mL (0.358-3.74) ECHOCARDIOGRAM ECHOCARDIOGRAM <Conclusion> The left ventricle is normal size. The left ventricular systolic function is normal and the ejection fraction is within normal range. The Ejection Fraction is 55-60%. There is no significant aortic valvular stenosis. Doppler and Color Flow revealed no significant aortic regurgitation. Doppler and Color Flow revealed trace mitral valve regurgitation. Doppler and Color Flow revealed mild tricuspid regurgitation. The pulmonary artery systolic pressure is estimated at 41 mmHg. DATE: 06/03/16 1738 HEART CATH HEART CATH Conclusion 1. No significant coronary artery disease 2. Normal left ventricle systolic function with ejection fraction estimated at 60-65% Recommendations Patient's non-STEMI could be secondary to vasospasm or thrombus that has been lysed. She does not have any lesions that need intervention. Recommend medical therapy. DATE: 06/03/16 1126 ASSESSMENT/PLAN ASSESSMENT/PLAN 1. Syncope: Recent TTE with normal wall motion, EF and no significant valvular disease. ?seizure vs vasovagal episode vs arrhythmia 2. Recent NSTEMI: No significant coronary lesion via [facility] 06/2016. Deemed possible vasospasm vs thrombus lysis at that time. 3. DM2/HLP: no meds for DM. on statin 4. VENUS on CKD: appears prerenal, suspect poor hydration 5. Dementia: on aricept. 6. UTI? 7. HTN: BP low Recommendations 1. Will check for orthostasis 2. Will plan for event monitor if pt compliant and supervised given her dementia but will likely not a good candidate for any device placement given the latter 3. Continue workup per neurology 4. Replace Mg, IVF, push po fluids 5. Monitor tele for any arrhythmias. 6. Hold lasix Problems: EV AVILA MD 08/26/162023: CARDIAC CONSULT ALLERGIES ALLERGIES: Coded Allergies: No Known Drug Allergies (Unverified , 06/02/16) ASSESSMENT/PLAN ASSESSMENT/PLAN Patient seen and examined. Agree with METER AND REGULATOR SHOP SUPERVISOR's assessment and plan Syncope uncertain etiology Tele did not show any arrhythmias so far Recent echo showed normal LV function and cath did not show any significant CAD Plan for event monitor as outpatient Continue neurology workup Thank you for your consultation Problems: VAN CALLAHAN [employer] POWER INSTALLER Aug 26, 2016 12:06 EV AVILA MD Aug 26, 2016 20:24
[2016-08-26] MEDS ORDERED: IV NORMAL SALINE 1000ML BAG 1,000 ML IV SCH (12:15)
[2016-08-26] MEDS: SENNOSIDES 8.6 MG TABLET PO SCH ×2 (13:14→21:10)
[2016-08-26 14:30] VITALS: BP_SYST 128; BP_SYST 132; BP_DIAS 51; BP_DIAS 58
--- NOTE | 2016-08-26 15:46 | PDOC ---
PROGRESS NOTES Assessment Assessment Syncopal spell, cardiac etiology likely. CVA evaluation. Confusion. CAD NSTEMI recently. Ischemic heart disease. DM Renal failure. Dementia. Pain in right thigh and knees Degenerative joint disease. No evidence of acute CVA this time. RECOMMENDATIONS/PLAN: Continue ASA, 162 mg daily OK. Continue Lipitor 20 mg HS. Continue Doneperil with titration up per instructions. Treat medical and cardiac diseases. OT/PT FU with PCP. HISTORY OF THE PRESENT ILLNESS: 81-y-old AA female patient with recent Hx of [place] and other medical diseases had several syncopal spells and 2 were a few days ago may also has some MS changes. The patient has dementia and is unable to provide information or history about her syncopal spells. Patient was seen in the ER and no family member presented at the time of exam. PAST MEDICAL HISTORY: Please see above. PAST SURGERY HISTORY: No major surgery recently. ALLERGY: Unknown MEDICATIONS: Refer to [facility] HISTORY: Non contributory. SOCIAL HISTORY: Denies current smoking, drinking, and illicit drug use. REVIEW OF SYSTEMS: Constitutional: No malnutrition, weight loss, cachexia. Head: No traumatic brain or head injury. Skin: No edema, or rash. Ear: No infection. Eyes: No vision loss or color blindness. Nose: No bleeding or purulent discharges. Hearing: Hearing decrease. Neck: No injury. Breast: No history of cancer, masses,or discharges. Cardiac: [place], CAD. Pulmonary: No COPD. GI: No GI ulcer, GI bleeding. Urinary/genital: UTI. Endocrinologic: Diabetes Mellitus. Skeletomuscular: No muscular atrophy, deformity. Neurological: see HP. Psychiatric: Denies drug use/abuse. Otherwise, not [id number] review of systems. PHYSICAL EXAMINATION: General appearance is in subacute distress. HEENT: Normocephalic and nontraumatic. Eyes, nose, ears, and throat are unremarkable. Neck is supple. No lymphadenopathy. No crepitus. Cardiovascular: S1, S2, seemed regular rate and rhythm. Pulmonary: seemed clear to auscultation bilaterally. Abdomen: Bowel sounds are positive. Extremities: No rash, lesions, or edema. No restriction of range of motion NEUROLOGICAL EXAMINATION: Awake. Unable to communicate. Unable to follow commands. Not oriented to time, place and person. PERRL. EOMI. CN: no focal findings. Muscle tone: Mildly increased. Muscle strength: 4+ DTR: 1-2 Plantar reflex: Neutral response bilaterally Gait: not examined in bed. Sensory exam: no acute findings, but patient was unable to answer questions correctly. No able to acces cerebellar signs due to not follow commands.. F-T-N test not performed due to not follow commands.. Objective Objective Vital Signs Date Time Temp Pulse Resp B/P Pulse Ox O2 Delivery O2 Flow Rate FiO2 08/26/16 10:30 96.6 72 18 98/45 99 Room Air 96.6 Intake and Output 08/26/16 07:00 # Voids 2 Vitals Signs Vitals VS - Last 72 Hours, by Label Date Time Temp Pulse Resp B/P Pulse Ox O2 Delivery O2 Flow Rate FiO2 08/26/16 10:30 96.6 72 18 98/45 99 Room Air 96.6 08/26/16 09:57 72 123/60 08/26/16 08:00 Room Air 08/26/16 07:10 96.3 57 18 123/60 97 Room Air 96.3 08/26/16 03:00 96.4 61 18 132/56 100 Room Air 96.4 08/26/16 00:14 Room Air 08/25/16 23:00 97.5 70 18 120/60 97 Room Air 97.5 08/25/16 20:00 97.5 87 18 122/60 100 Room Air 97.5 08/25/16 18:29 66 16 130/62 94 Room Air 08/25/16 17:59 63 16 141/69 96 Room Air 08/25/16 17:29 65 16 152/65 96 Room Air 08/25/16 16:59 65 15 125/60 95 Room Air 08/25/16 16:13 65 15 128/59 95 Room Air 08/25/16 15:54 70 16 137/64 95 Room Air 08/25/16 15:24 67 16 138/63 95 Room Air 08/25/16 14:54 65 15 137/63 95 Room Air 08/25/16 14:37 97.9 80 22 121/66 98 Room Air 97.9 Laboratory Laboratory Laboratory Tests Test 08/25/16 15:45 08/25/16 21:26 08/26/16 10:45 White Blood Count 5.8x10^3/uL (4.0-11.0) 4.9x10^3/uL (4.0-11.0) Red Blood Count 3.91x10^6/uL (3.50-5.40) 3.62x10^6/uL (3.50-5.40) Hemoglobin 11.2g/dL (12.0-15.5) 10.4g/dL (12.0-15.5) Hematocrit 33.0% (36.0-47.0) 30.7% (36.0-47.0) Mean Corpuscular Volume 84fL (79-100) 85fL (79-100) Mean Corpuscular Hemoglobin 29pg (25-35) 29pg (25-35) Mean Corpuscular Hemoglobin Concent 34g/dL (31-37) 34g/dL (31-37) Red Cell Distribution Width 17.2% (11.5-14.5) 16.8% (11.5-14.5) Platelet Count 227x10^3/uL (140-400) 210x10^3/uL (140-400) Neutrophils (%) (Auto) 69% (31-73) 67% (31-73) Lymphocytes (%) (Auto) 21% (24-48) 24% (24-48) Monocytes (%) (Auto) 9% (0-9) 8% (0-9) Eosinophils (%) (Auto) 1% (0-3) 1% (0-3) Basophils (%) (Auto) 0% (0-3) 0% (0-3) Neutrophils # (Auto) 4.0x10^3uL (1.8-7.7) 3.3x10^3uL (1.8-7.7) Lymphocytes # (Auto) 1.2x10^3/uL (1.0-4.8) 1.2x10^3/uL (1.0-4.8) Monocytes # (Auto) 0.5x10^3/uL (0.0-1.1) 0.4x10^3/uL (0.0-1.1) Eosinophils # (Auto) 0.1x10^3/uL (0.0-0.7) 0.0x10^3/uL (0.0-0.7) Basophils # (Auto) 0.0x10^3/uL (0.0-0.2) 0.0x10^3/uL (0.0-0.2) Prothrombin Time 12.9SEC (11.7-14.0) Prothromb Time International Ratio 1.0 (0.8-1.1) Sodium Level 139mmol/L (136-145) 139mmol/L (136-145) Potassium Level 3.6mmol/L (3.5-5.1) 3.5mmol/L (3.5-5.1) Chloride Level 103mmol/L (98-107) 101mmol/L (98-107) Carbon Dioxide Level 26mmol/L (21-32) 28mmol/L (21-32) Anion Gap 10 (6-14) 10 (6-14) Blood Urea Nitrogen 28mg/dL (7-20) 25mg/dL (7-20) Creatinine 1.6mg/dL (0.6-1.0) 1.6mg/dL (0.6-1.0) Estimated GFR (Cockcroft-Gault) 37.2 37.2 Glucose Level 94mg/dL (70-99) 127mg/dL (70-99) Calcium Level 9.1mg/dL (8.5-10.1) 8.9mg/dL (8.5-10.1) Magnesium Level 1.7mg/dL (1.8-2.4) 1.7mg/dL (1.8-2.4) Total Bilirubin 0.4mg/dL (0.2-1.0) Direct Bilirubin 0.1mg/dL (0.0-0.2) Aspartate Amino Transf (AST/SGOT) 17U/L (15-37) Alanine Aminotransferase (ALT/SGPT) 17U/L (14-59) Alkaline Phosphatase 74U/L (46-116) Creatine Kinase 57U/L (26-192) Creatine Kinase MB (Mass) < 0.5ng/mL (0.0-3.6) Creatine Kinase MB Relative Index 0.9% (0-4) Troponin I Quantitative < 0.017ng/mL (0.000-0.055) WF-Rxw-H-Type Natriuretic Peptide 124pg/mL (0-449) Total Protein 7.8g/dL (6.4-8.2) Albumin 3.7g/dL (3.4-5.0) Vitamin B12 Level 426pg/mL (247-911) Thyroid Stimulating Hormone (TSH) 1.599uIU/mL (0.358-3.74) Glucose (Fingerstick) 82mg/dL (70-99) Medication Medications Current Medications Aspirin (Children'S Aspirin) 81 mg DAILY PO Last administered on 08/26/16 09: 55; Start 08/26/16 at 09:00 Atorvastatin Calcium (Lipitor) 20 mg HS PO ; Start 08/26/16 at 21:00 Donepezil HCl (Aricept) 5 mg QHS PO ; Start 08/26/16 at 21:00 Furosemide (Lasix) 40 mg DAILY PO Last administered on 08/26/16 09:55; Start 08/26/16 at 09:00; Stop 08/26/16 at 12:07; Status DC Lorazepam (Ativan) 0.5 mg 1X ONCE IV Last administered on 08/25/16 15:46; Start 08/25/16 at 15:45; Stop 08/25/16 at 15:46; Status DC Magnesium Sulfate/ Dextrose 50 ml @ 25 mls/hr 1X ONCE IV Last administered on 08/26/16 12:05; Start 08/26/16 at 09:30; Stop 08/26/16 at 11:29; Status DC Metoprolol Tartrate (Lopressor) 12.5 mg BID PO Last administered on 08/26/16 09:57; Start 08/26/16 at 09:00 Ondansetron HCl (Zofran) 4 mg PRN Q8HRS PRN IV NAUSEA/VOMITING; Start 08/25/16 at 17:30; Stop 08/26/16 at 17:29 Sennosides (Senna) 8.6 mg BID PO Last administered on 08/26/16 13:14; Start at 09:00 Sertraline HCl 100 mg 100 mg DAILY PO Last administered on 08/26/16 09:57; Start 08/26/16 at 09:00 Sodium Chloride (Iv Sodium Chloride 0.9% 1000ml Bag) 1,000 ml @ 75 mls/hr [id number] IV Last administered on 08/26/16t 12:11; Start 08/26/16 at 12:15 Comment Review of Relevant I have reviewed the following items ludin (where applicable) has been applied. AIRAM LAM MD Aug 26, 2016 15:46
[2016-08-26] MEDS ORDERED: ASPIRIN CHEWABLE 81 MG TABLET. PO ONE (16:00)
[2016-08-26 19:00] VITALS: BP 132/42
[2016-08-26] MEDS: DONEPEZIL HCL 5 MG TABLET. PO SCH (21:10)
[2016-08-26] MEDS: ATORVASTATIN CALCIUM 20 MG TABLET PO SCH (21:10)
[2016-08-26 23:00] VITALS: BP 127/43
[2016-08-27 03:00] VITALS: BP_SYST 129
[2016-08-27 07:47] LABS: BASO % 0 % (0-3); EOS % 1 % (0-3); HEMOGLOBIN 10.4 g/dL (12.0-15.5); LYMPH # 1.4 x10^3/uL (1.0-4.8); LYMPH % 28 % (24-48); MEAN CORPUSCULAR HEMOGLOBIN 28 pg (25-35); MEAN CORPUSCULAR HGB CONC 33 g/dL (31-37); MEAN CORPUSCULAR VOLUME 86 fL (79-100); MONO % 8 % (0-9); NEUT % 63 % (31-73); PLATELET COUNT 210 x10^3/uL (140-400); RED BLOOD COUNT 3.71 x10^6/uL (3.50-5.40); RED CELL DISTRIBUTION WIDTH 16.7 % (11.5-14.5); WHITE BLOOD COUNT 4.9 x10^3/uL (4.0-11.0)
[2016-08-27 07:58] LABS: ALBUMIN 3.5 g/dL (3.4-5.0); ALBUMIN/GLOBULIN RATIO 0.8 (1.0-1.7); CALCIUM 8.8 mg/dL (8.5-10.1); TOTAL PROTEIN 7.9 g/dL (6.4-8.2)
[2016-08-27 07:59] LABS: CREATININE 1.8 mg/dL (0.6-1.0); GFR 32.5; POTASSIUM 3.7 mmol/L (3.5-5.1); TOTAL BILIRUBIN 0.6 mg/dL (0.2-1.0)
[2016-08-27 08:29] VITALS: BP 144/57
[2016-08-27] MEDS: SERTRALINE 50 MG TABLET. PO SCH (09:00)
[2016-08-27] MEDS: SENNOSIDES 8.6 MG TABLET PO SCH ×2 (09:00→21:08)
[2016-08-27] MEDS: METOPROLOL TART IMMED RELEASE 25 MG TABLET. PO SCH ×2 (09:00→21:00)
[2016-08-27] MEDS: ASPIRIN CHEWABLE 81 MG TABLET. PO SCH (09:00)
[2016-08-27 10:31] VITALS: BP 127/54
[2016-08-27] MEDS: MAGNESIUM OXIDE 400 MG TABLET PO SCH ×3 (10:35→21:08)
--- NOTE | 2016-08-27 11:55 | PDOC ---
IM PROGRESS NOTES- Subjective Subjective None.she is confused and not cooperative. Objective Vitals Vital Signs Date Time Temp Pulse Resp B/P Pulse Ox O2 Delivery O2 Flow Rate FiO2 08/27/16 10:31 97.8 59 18 127/54 97 Room Air 97.8 Input & Output Intake and Output 08/27/16 07:00 Intake Total 480 ml Balance 480 ml Intake Oral 480 ml # Voids 4 Physical Exam Physical Exam General appearance - alert,well appearing, and in no distress and confused Mental Status - alert,confused,not cooperative. 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 Musculoskeletal - no muscular tenderness noted Extremities - no pedal edema Skin - warm and dry Labs Laboratory Tests Test 08/25/16 15:20 08/25/16 15:45 08/25/16 21:26 08/26/16 10:45 Urine Collection Type U cath Urine Color Yellow Urine Clarity Clear Urine pH 5.0 Urine Specific [place] 1.010 Urine Protein Negativemg/dL (NEG-TRACE) Urine Glucose (UA) Negativemg/dL (NEG) Urine Ketones (Stick) Negativemg/dL (NEG) Urine Blood Trace (NEG) Urine Nitrite Negative (NEG) Urine Bilirubin Negative (NEG) Urine Urobilinogen Dipstick 0.2mg/dL (0.2 mg/dL) Urine Leukocyte Esterase Small (NEG) Urine RBC Occ/HPF (0-2) Urine WBC 1-4/HPF (0-4) Urine Squamous Epithelial Cells Mod/LPF Urine Bacteria 0/HPF (0-FEW) Urine Hyaline Casts Many/HPF White Blood Count 5.8x10^3/uL (4.0-11.0) 4.9x10^3/uL (4.0-11.0) Red Blood Count 3.91x10^6/uL (3.50-5.40) 3.62x10^6/uL (3.50-5.40) Hemoglobin 11.2g/dL (12.0-15.5) 10.4g/dL (12.0-15.5) Hematocrit 33.0% (36.0-47.0) 30.7% (36.0-47.0) Mean Corpuscular Volume 84fL (79-100) 85fL (79-100) Mean Corpuscular Hemoglobin 29pg (25-35) 29pg (25-35) Mean Corpuscular Hemoglobin Concent 34g/dL (31-37) 34g/dL (31-37) Red Cell Distribution Width 17.2% (11.5-14.5) 16.8% (11.5-14.5) Platelet Count 227x10^3/uL (140-400) 210x10^3/uL (140-400) Neutrophils (%) (Auto) 69% (31-73) 67% (31-73) Lymphocytes (%) (Auto) 21% (24-48) 24% (24-48) Monocytes (%) (Auto) 9% (0-9) 8% (0-9) Eosinophils (%) (Auto) 1% (0-3) 1% (0-3) Basophils (%) (Auto) 0% (0-3) 0% (0-3) Neutrophils # (Auto) 4.0x10^3uL (1.8-7.7) 3.3x10^3uL (1.8-7.7) Lymphocytes # (Auto) 1.2x10^3/uL (1.0-4.8) 1.2x10^3/uL (1.0-4.8) Monocytes # (Auto) 0.5x10^3/uL (0.0-1.1) 0.4x10^3/uL (0.0-1.1) Eosinophils # (Auto) 0.1x10^3/uL (0.0-0.7) 0.0x10^3/uL (0.0-0.7) Basophils # (Auto) 0.0x10^3/uL (0.0-0.2) 0.0x10^3/uL (0.0-0.2) Prothrombin Time 12.9SEC (11.7-14.0) Prothromb Time International Ratio 1.0 (0.8-1.1) Sodium Level 139mmol/L (136-145) 139mmol/L (136-145) Potassium Level 3.6mmol/L (3.5-5.1) 3.5mmol/L (3.5-5.1) Chloride Level 103mmol/L (98-107) 101mmol/L (98-107) Carbon Dioxide Level 26mmol/L (21-32) 28mmol/L (21-32) Anion Gap 10 (6-14) 10 (6-14) Blood Urea Nitrogen 28mg/dL (7-20) 25mg/dL (7-20) Creatinine 1.6mg/dL (0.6-1.0) 1.6mg/dL (0.6-1.0) Estimated GFR (Cockcroft-Gault) 37.2 37.2 Glucose Level 94mg/dL (70-99) 127mg/dL (70-99) Calcium Level 9.1mg/dL (8.5-10.1) 8.9mg/dL (8.5-10.1) Magnesium Level 1.7mg/dL (1.8-2.4) 1.7mg/dL (1.8-2.4) Total Bilirubin 0.4mg/dL (0.2-1.0) Direct Bilirubin 0.1mg/dL (0.0-0.2) Aspartate Amino Transf (AST/SGOT) 17U/L (15-37) Alanine Aminotransferase (ALT/SGPT) 17U/L (14-59) Alkaline Phosphatase 74U/L (46-116) Creatine Kinase 57U/L (26-192) Creatine Kinase MB (Mass) < 0.5ng/mL (0.0-3.6) Creatine Kinase MB Relative Index 0.9% (0-4) Troponin I Quantitative < 0.017ng/mL (0.000-0.055) SO-Mwx-O-Type Natriuretic Peptide 124pg/mL (0-449) Total Protein 7.8g/dL (6.4-8.2) Albumin 3.7g/dL (3.4-5.0) Vitamin B12 Level 426pg/mL (247-911) Thyroid Stimulating Hormone (TSH) 1.599uIU/mL (0.358-3.74) Glucose (Fingerstick) 82mg/dL (70-99) Test 08/27/16 07:15 White Blood Count 4.9x10^3/uL (4.0-11.0) Red Blood Count 3.71x10^6/uL (3.50-5.40) Hemoglobin 10.4g/dL (12.0-15.5) Hematocrit 32.0% (36.0-47.0) Mean Corpuscular Volume 86fL (79-100) Mean Corpuscular Hemoglobin 28pg (25-35) Mean Corpuscular Hemoglobin Concent 33g/dL (31-37) Red Cell Distribution Width 16.7% (11.5-14.5) Platelet Count 210x10^3/uL (140-400) Neutrophils (%) (Auto) 63% (31-73) Lymphocytes (%) (Auto) 28% (24-48) Monocytes (%) (Auto) 8% (0-9) Eosinophils (%) (Auto) 1% (0-3) Basophils (%) (Auto) 0% (0-3) Neutrophils # (Auto) 3.1x10^3uL (1.8-7.7) Lymphocytes # (Auto) 1.4x10^3/uL (1.0-4.8) Monocytes # (Auto) 0.1x10^3/uL (0.0-1.1) Eosinophils # (Auto) 0.0x10^3/uL (0.0-0.7) Basophils # (Auto) 0.0x10^3/uL (0.0-0.2) Sodium Level 141mmol/L (136-145) Potassium Level 3.7mmol/L (3.5-5.1) Chloride Level 103mmol/L (98-107) Carbon Dioxide Level 30mmol/L (21-32) Anion Gap 8 (6-14) Blood Urea Nitrogen 29mg/dL (7-20) Creatinine 1.8mg/dL (0.6-1.0) Estimated GFR (Cockcroft-Gault) 32.5 BUN/Creatinine Ratio 16 (6-20) Glucose Level 89mg/dL (70-99) Calcium Level 8.8mg/dL (8.5-10.1) Magnesium Level 1.7mg/dL (1.8-2.4) Total Bilirubin 0.6mg/dL (0.2-1.0) Aspartate Amino Transf (AST/SGOT) 21U/L (15-37) Alanine Aminotransferase (ALT/SGPT) 22U/L (14-59) Alkaline Phosphatase 56U/L (46-116) Total Protein 7.9g/dL (6.4-8.2) Albumin 3.5g/dL (3.4-5.0) Albumin/Globulin Ratio 0.8 (1.0-1.7) Laboratory Tests Test 08/27/16 07:15 White Blood Count 4.9x10^3/uL (4.0-11.0) Red Blood Count 3.71x10^6/uL (3.50-5.40) Hemoglobin 10.4g/dL (12.0-15.5) Hematocrit 32.0% (36.0-47.0) Mean Corpuscular Volume 86fL (79-100) Mean Corpuscular Hemoglobin 28pg (25-35) Mean Corpuscular Hemoglobin Concent 33g/dL (31-37) Red Cell Distribution Width 16.7% (11.5-14.5) Platelet Count 210x10^3/uL (140-400) Neutrophils (%) (Auto) 63% (31-73) Lymphocytes (%) (Auto) 28% (24-48) Monocytes (%) (Auto) 8% (0-9) Eosinophils (%) (Auto) 1% (0-3) Basophils (%) (Auto) 0% (0-3) Neutrophils # (Auto) 3.1x10^3uL (1.8-7.7) Lymphocytes # (Auto) 1.4x10^3/uL (1.0-4.8) Monocytes # (Auto) 0.1x10^3/uL (0.0-1.1) Eosinophils # (Auto) 0.0x10^3/uL (0.0-0.7) Basophils # (Auto) 0.0x10^3/uL (0.0-0.2) Sodium Level 141mmol/L (136-145) Potassium Level 3.7mmol/L (3.5-5.1) Chloride Level 103mmol/L (98-107) Carbon Dioxide Level 30mmol/L (21-32) Anion Gap 8 (6-14) Blood Urea Nitrogen 29mg/dL (7-20) Creatinine 1.8mg/dL (0.6-1.0) Estimated GFR (Cockcroft-Gault) 32.5 BUN/Creatinine Ratio 16 (6-20) Glucose Level 89mg/dL (70-99) Calcium Level 8.8mg/dL (8.5-10.1) Magnesium Level 1.7mg/dL (1.8-2.4) Total Bilirubin 0.6mg/dL (0.2-1.0) Aspartate Amino Transf (AST/SGOT) 21U/L (15-37) Alanine Aminotransferase (ALT/SGPT) 22U/L (14-59) Alkaline Phosphatase 56U/L (46-116) Total Protein 7.9g/dL (6.4-8.2) Albumin 3.5g/dL (3.4-5.0) Albumin/Globulin Ratio 0.8 (1.0-1.7) Meds Current Medications Aspirin (Children'S Aspirin) 81 mg 1X ONCE PO Last administered on 08/26/16 17:46; Start 08/26/16 at 16:00; Stop 08/26/16 at 16:01; Status DC Aspirin (Children'S Aspirin) 162 mg DAILY PO ; Start 08/27/16 at 09:00 Atorvastatin Calcium (Lipitor) 20 mg HS PO Last administered on 08/26/16 21:10 ; Start 08/26/16 at 21:00 Donepezil HCl 5 mg 5 mg QHS PO Last administered on 08/26/16 21:10; Start at 21:00 Magnesium Oxide (Magnesium Oxide) 400 mg TID PO Last administered on 08/27/16 10:35; Start 08/27/16 at 10:00 Sodium Chloride (Iv Sodium Chloride 0.9% 1000ml Bag) 1,000 ml @ 75 mls/hr [id number] IV Last administered on 08/26/16 12:11; Start 08/26/16 at 12:15; Stop 08/26/16 at 15:54; Status DC Assessment Assessment 1. Syncope, etiology not clear. 2. Dementia, Alzheimer's disease. 3. Coronary artery disease. 4. Hypertension. 5. Recent non-ST elevation myocardial infarction. 6. Mild hypomagnesemia. 7. Mild hypokalemia. 8. Osteoarthritis. PLAN: Admit to the hospital. Consult Dr. Green. MRI has been ordered. The patient may need further workup depending on her condition. Cardiology consult has been also obtained. 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 For details, please review the orders. MRI brain- no acute changes. No fracture of the right knee clinically and on repeat x rays. Hypokalemia- improving. Hypomagnesemia- replace. Plan Plan For more details regarding further plans, please refer to the orders. DONNA BAEZA MD Aug 27, 2016 11:55
[2016-08-27 15:00] VITALS: BP 139/58
--- NOTE | 2016-08-27 15:27 | PDOC ---
PROGRESS NOTES Assessment Assessment Syncopal spell, cardiac etiology likely. CVA evaluation. Confusion. CAD NSTEMI recently. Ischemic heart disease. DM Renal failure. Dementia. Degenerative joint disease. No evidence of acute CVA this time. RECOMMENDATIONS/PLAN: Continue ASA, 162 mg daily OK. Continue Lipitor 20 mg HS. Continue Doneperil with titration up per instructions. Treat medical and cardiac diseases. OT/PT FU with PCP. HISTORY OF THE PRESENT ILLNESS: 81-y-old AA female patient with recent Hx of [place] and other medical diseases had several syncopal spells and 2 were a few days ago may also has some MS changes. The patient has dementia and is unable to provide information or history about her syncopal spells. Patient was seen in the ER and no family member presented at the time of exam. PAST MEDICAL HISTORY: Please see above. PAST SURGERY HISTORY: No major surgery recently. ALLERGY: Unknown MEDICATIONS: Refer to [facility] HISTORY: Non contributory. SOCIAL HISTORY: Denies current smoking, drinking, and illicit drug use. REVIEW OF SYSTEMS: Constitutional: No malnutrition, weight loss, cachexia. Head: No traumatic brain or head injury. Skin: No edema, or rash. Ear: No infection. Eyes: No vision loss or color blindness. Nose: No bleeding or purulent discharges. Hearing: Hearing decrease. Neck: No injury. Breast: No history of cancer, masses,or discharges. Cardiac: [place], CAD. Pulmonary: No COPD. GI: No GI ulcer, GI bleeding. Urinary/genital: UTI. Endocrinologic: Diabetes Mellitus. Skeletomuscular: No muscular atrophy, deformity. Neurological: see HP. Psychiatric: Denies drug use/abuse. Otherwise, not [id number] review of systems. PHYSICAL EXAMINATION: General appearance is in subacute distress. HEENT: Normocephalic and nontraumatic. Eyes, nose, ears, and throat are unremarkable. Neck is supple. No lymphadenopathy. No crepitus. Cardiovascular: S1, S2, seemed regular rate and rhythm. Pulmonary: seemed clear to auscultation bilaterally. Abdomen: Bowel sounds are positive. Extremities: No rash, lesions, or edema. No restriction of range of motion NEUROLOGICAL EXAMINATION: Awake. Unable to communicate. Unable to follow commands. Not oriented to time, place and person. PERRL. EOMI. CN: no focal findings. Muscle tone: Mildly increased. Muscle strength: 4+ DTR: 1-2 Plantar reflex: Neutral response bilaterally Gait: not examined in bed. Sensory exam: no acute findings. No able to acces cerebellar signs due to not follow commands.. F-T-N test not performed due to not follow commands.. Objective Objective Vital Signs Date Time Temp Pulse Resp B/P Pulse Ox O2 Delivery O2 Flow Rate FiO2 08/27/16 10:31 97.8 59 18 127/54 97 Room Air 97.8 Intake and Output 08/27/16 07:00 Intake Total 480 ml Balance 480 ml Intake Oral 480 ml # Voids 4 Vitals Signs Vitals VS - Last 72 Hours, by Label Date Time Temp Pulse Resp B/P Pulse Ox O2 Delivery O2 Flow Rate FiO2 08/27/16 10:31 97.8 59 18 127/54 97 Room Air 97.8 08/27/16 09:00 53 144/57 08/27/16 08:29 97.7 53 12 144/57 99 Room Air 97.7 08/27/16 08:00 Room Air 08/27/16 03:00 97.9 60 20 129/ 97 Room Air 97.9 08/26/16 23:00 98.0 61 20 127/43 98 Room Air 98.0 08/26/16 21:10 72 132/42 08/26/16 20:00 Room Air 08/26/16 19:00 97.7 72 20 132/42 97 Room Air 97.7 08/26/16 14:30 67 132/58 08/26/16 14:30 97.5 65 18 128/51 98 Room Air 97.5 08/26/16 10:30 96.6 72 18 98/45 99 Room Air 96.6 08/26/16 09:57 72 123/60 08/26/16 08:00 Room Air 08/26/16 07:10 96.3 57 18 123/60 97 Room Air 96.3 Laboratory Laboratory Laboratory Tests Test 08/27/16 07:15 White Blood Count 4.9x10^3/uL (4.0-11.0) Red Blood Count 3.71x10^6/uL (3.50-5.40) Hemoglobin 10.4g/dL (12.0-15.5) Hematocrit 32.0% (36.0-47.0) Mean Corpuscular Volume 86fL (79-100) Mean Corpuscular Hemoglobin 28pg (25-35) Mean Corpuscular Hemoglobin Concent 33g/dL (31-37) Red Cell Distribution Width 16.7% (11.5-14.5) Platelet Count 210x10^3/uL (140-400) Neutrophils (%) (Auto) 63% (31-73) Lymphocytes (%) (Auto) 28% (24-48) Monocytes (%) (Auto) 8% (0-9) Eosinophils (%) (Auto) 1% (0-3) Basophils (%) (Auto) 0% (0-3) Neutrophils # (Auto) 3.1x10^3uL (1.8-7.7) Lymphocytes # (Auto) 1.4x10^3/uL (1.0-4.8) Monocytes # (Auto) 0.1x10^3/uL (0.0-1.1) Eosinophils # (Auto) 0.0x10^3/uL (0.0-0.7) Basophils # (Auto) 0.0x10^3/uL (0.0-0.2) Sodium Level 141mmol/L (136-145) Potassium Level 3.7mmol/L (3.5-5.1) Chloride Level 103mmol/L (98-107) Carbon Dioxide Level 30mmol/L (21-32) Anion Gap 8 (6-14) Blood Urea Nitrogen 29mg/dL (7-20) Creatinine 1.8mg/dL (0.6-1.0) Estimated GFR (Cockcroft-Gault) 32.5 BUN/Creatinine Ratio 16 (6-20) Glucose Level 89mg/dL (70-99) Calcium Level 8.8mg/dL (8.5-10.1) Magnesium Level 1.7mg/dL (1.8-2.4) Total Bilirubin 0.6mg/dL (0.2-1.0) Aspartate Amino Transf (AST/SGOT) 21U/L (15-37) Alanine Aminotransferase (ALT/SGPT) 22U/L (14-59) Alkaline Phosphatase 56U/L (46-116) Total Protein 7.9g/dL (6.4-8.2) Albumin 3.5g/dL (3.4-5.0) Albumin/Globulin Ratio 0.8 (1.0-1.7) Microbiology 08/25/16 Urine Culture - Preliminary, Resulted 08/25/16 Urine Culture Result 1 (NELLY) - Preliminary, Resulted Medication Medications Current Medications Aspirin (Children'S Aspirin) 81 mg 1X ONCE PO Last administered on 08/26/16 17:46; Start 08/26/16 at 16:00; Stop 08/26/16 at 16:01; Status DC Aspirin (Children'S Aspirin) 162 mg DAILY PO ; Start 08/27/16 at 09:00 Atorvastatin Calcium (Lipitor) 20 mg HS PO Last administered on 08/26/16 21:10 ; Start 08/26/16 at 21:00 Donepezil HCl (Aricept) 5 mg QHS PO Last administered on 08/26/16 21:10; Start 08/26/16 at 21:00 Magnesium Oxide (Magnesium Oxide) 400 mg TID PO Last administered on 08/27/16 10:35; Start 08/27/16 at 10:00 Comment Review of Relevant I have reviewed the following items ludin (where applicable) has been applied. AIRAM LAM MD Aug 27, 2016 15:27
[2016-08-27 19:00] VITALS: BP 97/77
[2016-08-27] MEDS: ATORVASTATIN CALCIUM 20 MG TABLET PO SCH (21:08)
[2016-08-27] MEDS: DONEPEZIL HCL 5 MG TABLET. PO SCH (21:08)
[2016-08-27 23:00] VITALS: BP 126/56
[2016-08-28 03:00] VITALS: BP 126/54
[2016-08-28 07:00] VITALS: BP 115/73
[2016-08-28] MEDS: MAGNESIUM OXIDE 400 MG TABLET PO SCH ×3 (08:28→20:44)
[2016-08-28] MEDS: SENNOSIDES 8.6 MG TABLET PO SCH ×2 (09:00→20:44)
[2016-08-28] MEDS: ASPIRIN CHEWABLE 81 MG TABLET. PO SCH (09:00)
[2016-08-28] MEDS: SERTRALINE 50 MG TABLET. PO SCH (09:00)
[2016-08-28] MEDS: METOPROLOL TART IMMED RELEASE 25 MG TABLET. PO SCH ×2 (09:00→20:46)
[2016-08-28 11:00] VITALS: BP 119/63
--- NOTE | 2016-08-28 12:44 | PDOC ---
IM PROGRESS NOTES- Subjective Subjective None.she is confused and not cooperative. Objective Vitals Vital Signs Date Time Temp Pulse Resp B/P Pulse Ox O2 Delivery O2 Flow Rate FiO2 08/28/16 11:00 97.5 62 19 119/63 100 Room Air 97.5 Input & Output Intake and Output 08/28/16 07:00 Intake Total 870 ml Balance 870 ml Intake Oral 870 ml # Voids 2 Physical Exam Physical Exam General appearance - alert,well appearing, and in no distress and confused Mental Status - alert,confused,not cooperative. Head - normal Chest - clear to auscultation, no wheezes, rales or rhonchi, symmetric air entry Heart - S1 and S2 normal TARE MAN confused Musculoskeletal - no muscular tenderness noted Extremities - no pedal edema Skin - warm and dry Labs Laboratory Tests Test 08/27/16 07:15 White Blood Count 4.9x10^3/uL (4.0-11.0) Red Blood Count 3.71x10^6/uL (3.50-5.40) Hemoglobin 10.4g/dL (12.0-15.5) Hematocrit 32.0% (36.0-47.0) Mean Corpuscular Volume 86fL (79-100) Mean Corpuscular Hemoglobin 28pg (25-35) Mean Corpuscular Hemoglobin Concent 33g/dL (31-37) Red Cell Distribution Width 16.7% (11.5-14.5) Platelet Count 210x10^3/uL (140-400) Neutrophils (%) (Auto) 63% (31-73) Lymphocytes (%) (Auto) 28% (24-48) Monocytes (%) (Auto) 8% (0-9) Eosinophils (%) (Auto) 1% (0-3) Basophils (%) (Auto) 0% (0-3) Neutrophils # (Auto) 3.1x10^3uL (1.8-7.7) Lymphocytes # (Auto) 1.4x10^3/uL (1.0-4.8) Monocytes # (Auto) 0.1x10^3/uL (0.0-1.1) Eosinophils # (Auto) 0.0x10^3/uL (0.0-0.7) Basophils # (Auto) 0.0x10^3/uL (0.0-0.2) Sodium Level 141mmol/L (136-145) Potassium Level 3.7mmol/L (3.5-5.1) Chloride Level 103mmol/L (98-107) Carbon Dioxide Level 30mmol/L (21-32) Anion Gap 8 (6-14) Blood Urea Nitrogen 29mg/dL (7-20) Creatinine 1.8mg/dL (0.6-1.0) Estimated GFR (Cockcroft-Gault) 32.5 BUN/Creatinine Ratio 16 (6-20) Glucose Level 89mg/dL (70-99) Calcium Level 8.8mg/dL (8.5-10.1) Magnesium Level 1.7mg/dL (1.8-2.4) Total Bilirubin 0.6mg/dL (0.2-1.0) Aspartate Amino Transf (AST/SGOT) 21U/L (15-37) Alanine Aminotransferase (ALT/SGPT) 22U/L (14-59) Alkaline Phosphatase 56U/L (46-116) Total Protein 7.9g/dL (6.4-8.2) Albumin 3.5g/dL (3.4-5.0) Albumin/Globulin Ratio 0.8 (1.0-1.7) Assessment Assessment 1. Syncope, etiology not clear. 2. Dementia, Alzheimer's disease. 3. Coronary artery disease. 4. Hypertension. 5. Recent non-ST elevation myocardial infarction. 6. Mild hypomagnesemia. 7. Mild hypokalemia. 8. Osteoarthritis. PLAN: Admit to the hospital. Consult Dr. Green. MRI has been ordered. The patient may need further workup depending on her condition. Cardiology consult has been also obtained. Admit to the hospital, monitor her on bus driver/monitor, replace magnesium. For details, please review the orders. MRI brain- no acute changes. No fracture of the right knee clinically and on repeat x rays. Hypokalemia- improving. Hypomagnesemia- replace. Plan Plan For more details regarding further plans, please refer to the orders. DONNA BAEZA MD Aug 28, 2016 12:44
[2016-08-28 14:02] LABS: ALBUMIN 3.3 g/dL (3.4-5.0); ALBUMIN/GLOBULIN RATIO 0.7 (1.0-1.7); CREATININE 1.8 mg/dL (0.6-1.0); GFR 32.5; POTASSIUM 3.7 mmol/L (3.5-5.1); TOTAL BILIRUBIN 0.5 mg/dL (0.2-1.0); TOTAL PROTEIN 7.8 g/dL (6.4-8.2)
--- NOTE | 2016-08-28 14:11 | PDOC ---
PROGRESS NOTES Assessment Assessment Syncopal spell, no neurological etiology explain. Metabolic encephalopathy. Confusion. CAD NSTEMI recently. Ischemic heart disease. DM Renal failure. Dementia. Degenerative joint disease. No evidence of acute CVA this time. RECOMMENDATIONS/PLAN: Continue ASA, 162 mg daily OK. Continue Lipitor 20 mg HS. Continue Doneperil with titration up per instructions. Treat medical and cardiac diseases. EEG is not needed. It was ordered in ER, but was canceled. OT/PT FU with PCP. HISTORY OF THE PRESENT ILLNESS: 81-y-old AA female patient with recent Hx of OR and other medical diseases had several syncopal spells and 2 were a few days ago may also has some MS changes. The patient has dementia and is unable to provide information or history about her syncopal spells. Patient was seen in the ER and no family member presented at the time of exam. No syncopal spells since in the hospital. PAST MEDICAL HISTORY: Please see above. PAST SURGERY HISTORY: No major surgery recently. ALLERGY: Unknown MEDICATIONS: Refer to [facility] FAMILY HISTORY: Non contributory. SOCIAL HISTORY: Denies current smoking, drinking, and illicit drug use. REVIEW OF SYSTEMS: Constitutional: No malnutrition, weight loss, cachexia. Head: No traumatic brain or head injury. Skin: No edema, or rash. Ear: No infection. Eyes: No vision loss or color blindness. Nose: No bleeding or purulent discharges. Hearing: Hearing decrease. Neck: No injury. Breast: No history of cancer, masses,or discharges. Cardiac: OR, CAD. Pulmonary: No COPD. GI: No GI ulcer, GI bleeding. Urinary/genital: UTI. Endocrinologic: Diabetes Mellitus. Skeletomuscular: No muscular atrophy, deformity. Neurological: see HP. Psychiatric: Denies drug use/abuse. Otherwise, not [id number] review of systems. PHYSICAL EXAMINATION: General appearance is in subacute distress. HEENT: Normocephalic and nontraumatic. Eyes, nose, ears, and throat are unremarkable. Neck is supple. No lymphadenopathy. No crepitus. Cardiovascular: S1, S2, seemed regular rate and rhythm. Pulmonary: seemed clear to auscultation bilaterally. Abdomen: Bowel sounds are positive. Extremities: No rash, lesions, or edema. No restriction of range of motion NEUROLOGICAL EXAMINATION: Awake. Not oriented to time, place and person. PERRL. EOMI. CN: no focal findings. Muscle tone: Mildly increased. Muscle strength: 4+ DTR: 1-2 Plantar reflex: Neutral response bilaterally Gait: not examined in bed. Sensory exam: no acute findings. No able to acces cerebellar signs due to not follow commands.. F-T-N test not performed due to not follow commands.. Objective Objective Vital Signs Date Time Temp Pulse Resp B/P Pulse Ox O2 Delivery O2 Flow Rate FiO2 08/28/16 11:00 97.5 62 19 119/63 100 Room Air 97.5 Intake and Output 08/28/16 07:00 Intake Total 870 ml Balance 870 ml Intake Oral 870 ml # Voids 2 Vitals Signs Vitals VS - Last 72 Hours, by Label Date Time Temp Pulse Resp B/P Pulse Ox O2 Delivery O2 Flow Rate FiO2 08/28/16 11:00 97.5 62 19 119/63 100 Room Air 97.5 08/28/16 08:00 Room Air 08/28/16 07:00 96.4 56 18 115/73 100 Room Air 96.4 08/28/16 03:00 97.3 54 20 126/54 93 Room Air 97.3 08/27/16 23:00 97.3 62 20 126/56 97 Room Air 97.3 08/27/16 21:00 61 97/77 08/27/16 20:00 Room Air 08/27/16 19:00 96.4 61 18 97/77 98 Room Air 96.4 08/27/16 15:00 97.5 62 18 139/58 98 Room Air 97.5 08/27/16 10:31 97.8 59 18 127/54 97 Room Air 97.8 08/27/16 09:00 53 144/57 08/27/16 08:29 97.7 53 12 144/57 99 Room Air 97.7 08/27/16 08:00 Room Air Laboratory Laboratory Laboratory Tests Test 08/28/16 13:30 Sodium Level 141mmol/L (136-145) Potassium Level 3.7mmol/L (3.5-5.1) Chloride Level 104mmol/L (98-107) Carbon Dioxide Level 33mmol/L (21-32) Anion Gap 4 (6-14) Blood Urea Nitrogen 27mg/dL (7-20) Creatinine 1.8mg/dL (0.6-1.0) Estimated GFR (Cockcroft-Gault) 32.5 BUN/Creatinine Ratio 15 (6-20) Glucose Level 104mg/dL (70-99) Calcium Level 9.0mg/dL (8.5-10.1) Total Bilirubin 0.5mg/dL (0.2-1.0) Aspartate Amino Transf (AST/SGOT) 16U/L (15-37) Alanine Aminotransferase (ALT/SGPT) 17U/L (14-59) Alkaline Phosphatase 67U/L (46-116) Total Protein 7.8g/dL (6.4-8.2) Albumin 3.3g/dL (3.4-5.0) Albumin/Globulin Ratio 0.7 (1.0-1.7) Microbiology 08/25/16 Urine Culture - Final, Complete 08/25/16 Urine Culture Result 1 (NELLY) - Final, Complete 08/25/16 Antimicrobic Susceptibility - Final, Complete Comment Review of Relevant I have reviewed the following items ludin (where applicable) has been applied. AIRAM LAM MD Aug 28, 2016 14:11
[2016-08-28 15:00] VITALS: BP 135/54
[2016-08-28 19:00] VITALS: BP 96/53
[2016-08-28] MEDS: ATORVASTATIN CALCIUM 20 MG TABLET PO SCH (20:44)
[2016-08-28] MEDS: DONEPEZIL HCL 5 MG TABLET. PO SCH (20:46)
[2016-08-28 23:00] VITALS: BP 139/53
[2016-08-29 03:00] VITALS: BP 148/61
[2016-08-29 07:00] VITALS: BP 121/50
[2016-08-29] MEDS: SENNOSIDES 8.6 MG TABLET PO SCH (09:00)
[2016-08-29] MEDS: SERTRALINE 50 MG TABLET. PO SCH (09:00)
[2016-08-29] MEDS: METOPROLOL TART IMMED RELEASE 25 MG TABLET. PO SCH (09:00)
[2016-08-29] MEDS: MAGNESIUM OXIDE 400 MG TABLET PO SCH (09:00)
[2016-08-29] MEDS: ASPIRIN CHEWABLE 81 MG TABLET. PO SCH (09:00)
--- NOTE | 2016-08-29 09:09 | PDOC3 ---
CHILOGianlucaEVELYN BELTRAN COPY LATHE TENDER 08/29/16 0909: IM DISCHARGE & PROGRESS NOTES Date of Admission Date of Admission Date of Admission: Aug 25, 2016 at 16:30 Date of Discharge Date of Discharge 08/29/16 Primary Diagnosis Primary Diagnosis Assessment 1. Syncope 2. Dementia, Alzheimer's disease. 3. Coronary artery disease with recent NSTEMI CC 06/2016 neg significant disease 4. Hypertension. 5. Recent non-ST elevation myocardial infarction. 06/2016 6. Mild hypomagnesemia. 7. Mild hypokalemia. 8. Osteoarthritis. Consults Consults Randall Valente MD, Dr. Procedures Procedures None Labs Labs Laboratory Tests Test 08/26/16 10:45 08/27/16 07:15 08/28/16 13:30 White Blood Count 4.9x10^3/uL (4.0-11.0) 4.9x10^3/uL (4.0-11.0) Red Blood Count 3.62x10^6/uL (3.50-5.40) 3.71x10^6/uL (3.50-5.40) Hemoglobin 10.4g/dL (12.0-15.5) 10.4g/dL (12.0-15.5) Hematocrit 30.7% (36.0-47.0) 32.0% (36.0-47.0) Mean Corpuscular Volume 85fL (79-100) 86fL (79-100) Mean Corpuscular Hemoglobin 29pg (25-35) 28pg (25-35) Mean Corpuscular Hemoglobin Concent 34g/dL (31-37) 33g/dL (31-37) Red Cell Distribution Width 16.8% (11.5-14.5) 16.7% (11.5-14.5) Platelet Count 210x10^3/uL (140-400) 210x10^3/uL (140-400) Neutrophils (%) (Auto) 67% (31-73) 63% (31-73) Lymphocytes (%) (Auto) 24% (24-48) 28% (24-48) Monocytes (%) (Auto) 8% (0-9) 8% (0-9) Eosinophils (%) (Auto) 1% (0-3) 1% (0-3) Basophils (%) (Auto) 0% (0-3) 0% (0-3) Neutrophils # (Auto) 3.3x10^3uL (1.8-7.7) 3.1x10^3uL (1.8-7.7) Lymphocytes # (Auto) 1.2x10^3/uL (1.0-4.8) 1.4x10^3/uL (1.0-4.8) Monocytes # (Auto) 0.4x10^3/uL (0.0-1.1) 0.1x10^3/uL (0.0-1.1) Eosinophils # (Auto) 0.0x10^3/uL (0.0-0.7) 0.0x10^3/uL (0.0-0.7) Basophils # (Auto) 0.0x10^3/uL (0.0-0.2) 0.0x10^3/uL (0.0-0.2) Sodium Level 139mmol/L (136-145) 141mmol/L (136-145) 141mmol/L (136-145) Potassium Level 3.5mmol/L (3.5-5.1) 3.7mmol/L (3.5-5.1) 3.7mmol/L (3.5-5.1) Chloride Level 101mmol/L (98-107) 103mmol/L (98-107) 104mmol/L (98-107) Carbon Dioxide Level 28mmol/L (21-32) 30mmol/L (21-32) 33mmol/L (21-32) Anion Gap 10 (6-14) 8 (6-14) 4 (6-14) Blood Urea Nitrogen 25mg/dL (7-20) 29mg/dL (7-20) 27mg/dL (7-20) Creatinine 1.6mg/dL (0.6-1.0) 1.8mg/dL (0.6-1.0) 1.8mg/dL (0.6-1.0) Estimated GFR (Cockcroft-Gault) 37.2 32.5 32.5 Glucose Level 127mg/dL (70-99) 89mg/dL (70-99) 104mg/dL (70-99) Calcium Level 8.9mg/dL (8.5-10.1) 8.8mg/dL (8.5-10.1) 9.0mg/dL (8.5-10.1) Magnesium Level 1.7mg/dL (1.8-2.4) 1.7mg/dL (1.8-2.4) BUN/Creatinine Ratio 16 (6-20) 15 (6-20) Total Bilirubin 0.6mg/dL (0.2-1.0) 0.5mg/dL (0.2-1.0) Aspartate Amino Transf (AST/SGOT) 21U/L (15-37) 16U/L (15-37) Alanine Aminotransferase (ALT/SGPT) 22U/L (14-59) 17U/L (14-59) Alkaline Phosphatase 56U/L (46-116) 67U/L (46-116) Total Protein 7.9g/dL (6.4-8.2) 7.8g/dL (6.4-8.2) Albumin 3.5g/dL (3.4-5.0) 3.3g/dL (3.4-5.0) Albumin/Globulin Ratio 0.8 (1.0-1.7) 0.7 (1.0-1.7) Medications Medications Medications reviewed and reconciled for discharge. Brief hospital course Brief hospital course This 81 year old male who presented with sycope with loss of consciousness. She was admitted and the following is a summary of her treatment: syncope 08/26 negative orthostatic hypotension lying to sitting, was not checked standing MRI brain negative. electrolyte imbalance Admit K 3.6 08/28 3.7 Mg 1.7 08/27 1.7 Mg Ox 400mg tid current UA [id number] enterococcus faecalis anemia CD Admit 11.2 08/28 10.4 DVT/GI prophylaxis SCD/VALENTE' Pepcid For more details regarding the past history, family history, social history, surgical history and other details, please refer to History and Physical. Subjective Awake, did not eat much of her breakfast, just not interested at this time Objective no acute distress Vitals Vital Signs Date Time Temp Pulse Resp B/P Pulse Ox O2 Delivery O2 Flow Rate FiO2 5/1/17 03:00 98.0 56 18 148/61 95 Room Air 98.0 Physical Exam General appearance - alert,well appearing, and in no distress Mental Status - alert,confused,not cooperative. Head - normal Chest - clear to auscultation, no wheezes, rales or rhonchi, symmetric air entry Heart - S1 and S2 normal RELAY ASSOCIATE confused Musculoskeletal - no muscular tenderness noted Extremities - no pedal edema Skin - warm and dry Medications Medications reviewed. Allergy Allergies Coded Allergies Type Severity Reaction Last Updated Verified No Known Drug Allergies 06/02/16 No Follow up [facility]-Admit to Dr. Ryan other facility-admit to facility MD. Disposition: Nursing Home facility (PT OT eval and treat) Comments Discharge Management - 35 minutes. For other details please refer to discharge instructions DONNA RYAN MD 08/29/16 0951: IM DISCHARGE & PROGRESS NOTES Brief hospital course Brief hospital course d/w sister ,she wants her home and not halfway. Ok to discharge home. [facility] prognosis is poor. The patient was seen and examined by me. Chart reviewed and plan of care formulated. Discussed with, reviewed and agree with ENGINE BOSS's notes, plan of care and orders with modifications as necessary. Discharge Management - 35 minutes. EVELYN HELMS APRN August 29, 2016 09:09 DONNA RYAN MD August 29, 2016 09:51
--- NOTE | 2016-08-29 09:13 | DISCH ---
DISCHARGE FINAL DIAGNOSIS Problems Medical Problems: (1) Syncope Status: Acute CONDITION ON DISCHARGE: Stable SNF STAY <30 DAYS: No HOME HEALTH: No PT. HAS FUNCTIONAL LIMITATIONS: No FACE TO FACE ENCOUNTER: No POST DISCHARGE ORDERS ACTIVITY ORDERS: Activity as tolerated (with transfer assistance and assistance with walking) WEIGHT BEARING STATUS: As tolerated DIET AFTER DISCHARGE: Cardiac FOLLOW-UP PHYSICIAN FOLLOW-UP: F/U PCP 5 days TREATMENT/EQUIPMENT ORDERS ADAPTIVE EQUIPMENT NEEDED: Wheelchair EVELYN HELMS APRN August 29, 2016 09:13
[2016-08-29] MEDS ORDERED: Magnesium Oxide PO (09:14)
[2016-08-29] MEDS ORDERED: ASPI81TA2 PO (09:14)
--- NOTE | 2016-08-29 10:09 | DISCH ---
DISCHARGE WITH HOME HEALTH DISCHARGE INFORMATION: Discharge Date: August 29, 2016 Final Diagnosis: Problems Medical Problems: (1) Syncope Status: Acute Condition on Discharge: Stable HOME HEALTH: Face to Face: I certify this patient is under my care and that my nurse practitioner working with me, had a face to face encounter that meets the physician face to face encounter requirements with this patient on 08/29/16. Medical Condition(s): Falls [facility] For: Assess/Skilled Observatio Physical Therapy For: Evalulation/Treatment Occupational Therapy For: Evaluation/Treatment Patient meets Homebound Statu: Poor cognition FOLLOW-UP: Follow up with: PCP one week CERTIFICATION STATEMENT: Certification Statement: Certification Statement: Based on the above finding, I certify that this patient is confined to the home and needs intermittent long term care, physical therapy and/or speech therapy, or continues to need occupational therapy.~ This patient is under my care, and I have initiated the establishment of the plan of care.~ This patient will be followed by myself or a community physician who will periodically review the plan of care. EVELYN HELMS APRN August 29, 2016 10:09
--- NOTE | 2016-08-29 10:23 | PDOC ---
PROGRESS NOTES Assessment Problems Medical Problems: (1) Syncope Status: Acute Syncope Metabolic encephalopathy. Prior dementia No evidence of acute CVA. Plan Okay for discharge Continue ASA, 162 mg daily OK. Continue Lipitor 20 mg HS. Continue Donepezil with titration up per instructions. Treat medical and cardiac diseases. Subjective No complaints, wants to go home Objective Vital Signs Date Time Temp Pulse Resp B/P Pulse Ox O2 Delivery O2 Flow Rate FiO2 08/29/16 09:00 60 121/50 08/29/16 07:00 97.5 18 100 Room Air 97.5 Intake and Output 08/29/16 07:00 Intake Total 1710 ml Balance 1710 ml Intake Oral 1710 ml # Voids 6 PHYSICAL EXAM Alert. Oriented to place and person, knows month. PERRL. EOMI. CN: no focal findings. Muscle tone: normal. Muscle strength: 4/5 DTR: 1+ Plantar reflex: flexor Gait: not examined in bed. Sensory exam: no abnormal findings. No cerebellar signs elicited. Review of Relevant I have reviewed the following items ludin (where applicable) has been applied. Labs Laboratory Tests Test 08/28/16 13:30 Sodium Level 141mmol/L (136-145) Potassium Level 3.7mmol/L (3.5-5.1) Chloride Level 104mmol/L (98-107) Carbon Dioxide Level 33mmol/L (21-32) Anion Gap 4 (6-14) Blood Urea Nitrogen 27mg/dL (7-20) Creatinine 1.8mg/dL (0.6-1.0) Estimated GFR (Cockcroft-Gault) 32.5 BUN/Creatinine Ratio 15 (6-20) Glucose Level 104mg/dL (70-99) Calcium Level 9.0mg/dL (8.5-10.1) Total Bilirubin 0.5mg/dL (0.2-1.0) Aspartate Amino Transf (AST/SGOT) 16U/L (15-37) Alanine Aminotransferase (ALT/SGPT) 17U/L (14-59) Alkaline Phosphatase 67U/L (46-116) Total Protein 7.8g/dL (6.4-8.2) Albumin 3.3g/dL (3.4-5.0) Albumin/Globulin Ratio 0.7 (1.0-1.7) Laboratory Tests Test 08/28/16 13:30 Sodium Level 141mmol/L (136-145) Potassium Level 3.7mmol/L (3.5-5.1) Chloride Level 104mmol/L (98-107) Carbon Dioxide Level 33mmol/L (21-32) Anion Gap 4 (6-14) Blood Urea Nitrogen 27mg/dL (7-20) Creatinine 1.8mg/dL (0.6-1.0) Estimated GFR (Cockcroft-Gault) 32.5 BUN/Creatinine Ratio 15 (6-20) Glucose Level 104mg/dL (70-99) Calcium Level 9.0mg/dL (8.5-10.1) Total Bilirubin 0.5mg/dL (0.2-1.0) Aspartate Amino Transf (AST/SGOT) 16U/L (15-37) Alanine Aminotransferase (ALT/SGPT) 17U/L (14-59) Alkaline Phosphatase 67U/L (46-116) Total Protein 7.8g/dL (6.4-8.2) Albumin 3.3g/dL (3.4-5.0) Albumin/Globulin Ratio 0.7 (1.0-1.7) Microbiology 08/25/16 Urine Culture - Final, Complete 08/25/16 Urine Culture Result 1 (NELLY) - Final, Complete 08/25/16 Antimicrobic Susceptibility - Final, Complete Medications Current Medications Lorazepam (Ativan) 0.5 mg 1X ONCE IV Last administered on 08/25/16 15:46; Start 08/25/16 at 15:45; Stop 08/25/16 at 15:46; Status DC Ondansetron HCl (Zofran) 4 mg PRN Q8HRS PRN IV NAUSEA/VOMITING; Start 08/25/16 at 17:30; Stop 08/26/16 at 17:29; Status DC Aspirin (Children'S Aspirin) 81 mg DAILY PO Last administered on 08/26/16 09: 55; Start 08/26/16 at 09:00; Stop 08/26/16 at 15:44; Status DC Atorvastatin Calcium (Lipitor) 20 mg HS PO Last administered on 08/28/16 20:44 ; Start 08/26/16 at 21:00 Donepezil HCl (Aricept) 5 mg QHS PO Last administered on 08/28/16 20:46; Start 08/26/16 at 21:00 Furosemide (Lasix) 40 mg DAILY PO Last administered on 08/26/16 09:55; Start 08/26/16 at 09:00; Stop 08/26/16 at 12:07; Status DC Metoprolol Tartrate (Lopressor) 12.5 mg BID PO Last administered on 08/26/16 21:10; Start 08/26/16 at 09:00 Sennosides (Senna) 8.6 mg BID PO Last administered on 08/28/16 20:44; Start at 09:00 Sertraline HCl 100 mg 100 mg DAILY PO Last administered on 08/26/16 09:57; Start 08/26/16 at 09:00 Magnesium Sulfate/ Dextrose 50 ml @ 25 mls/hr 1X ONCE IV Last administered on 08/26/16 12:05; Start 08/26/16 at 09:30; Stop 08/26/16 at 11:29; Status DC Sodium Chloride (Iv Sodium Chloride 0.9% 1000ml Bag) 1,000 ml @ 75 mls/hr [id number] IV Last administered on 08/26/16 12:11; Start 08/26/16 at 12:15; Stop 08/26/16 at 15:54; Status DC Aspirin (Children'S Aspirin) 162 mg DAILY PO ; Start 08/27/16 at 09:00 Aspirin (Children'S Aspirin) 81 mg 1X ONCE PO Last administered on 08/26/16 17:46; Start 08/26/16 at 16:00; Stop 08/26/16 at 16:01; Status DC Magnesium Oxide (Magnesium Oxide) 400 mg TID PO Last administered on 08/28/16 20:44; Start 08/27/16 at 10:00 Active Scripts Active Aspirin 81 Mg Tab.chew 162 Mg PO DAILY [Magnesium Oxide] 400 MG Tablet 400 Mg PO TID Reported Senokot (Sennosides) 8.6 Mg Tablet 1 Tab PO BID Atorvastatin Calcium 20 Mg Tablet 1 Tab PO HS Aricept (Donepezil Hcl) 5 Mg Tablet 1 Tab PO QHS Zoloft (Sertraline Hcl) 100 Mg Tablet 1 Tab PO HS Vitals/I & O Vital Sign - Last 24 Hours 08/28/16 08/28/16 08/28/16 08/28/16 11:00 15:00 19:00 19:29 Temp 97.5 97.7 97.9 97.5 97.7 97.9 Pulse 62 53 53 Resp B/P 119/63 135/54 96/53 Pulse Ox 100 99 98 O2 Delivery Room Air Room Air Room Air Room Air 08/28/16 08/28/16 08/29/16 08/29/16 20:46 23:00 03:00 07:00 Temp 98.2 98.0 97.5 98.2 98.0 97.5 Pulse 53 68 56 60 Resp B/P 96/53 139/53 148/61 121/50 Pulse Ox 98 95 100 O2 Delivery Room Air Room Air Room Air 08/29/16 09:00 Pulse 60 B/P 121/50 Intake and Output 08/28/16 08/28/16 08/29/16 15:00 23:00 07:00 Intake Total 500 ml 1150 ml 60 ml Balance 500 ml 1150 ml 60 ml SUREKHA MIDDLETON MD August 29, 2016 10:23
[2016-08-29 11:00] VITALS: BP 125/62
== END 2016-08-29 14:20 | disposition home health service (06) | DRG 682 ==
LOC: ER 14:34 → ED HOLD 16:30 → 5 NORTH 19:24
PROVIDERS: ADMIT Internal Medicine; ATTEND Internal Medicine
DX: N17.9 Acute kidney failure, unspecified (principal); G93.41 Metabolic encephalopathy; N39.0 Urinary tract infection, site not specified; R55 Syncope and collapse; D64.9 Anemia, unspecified; E11.22 Type 2 diabetes mellitus with diabetic chronic kidney disease; E78.5 Hyperlipidemia, unspecified; E83.42 Hypomagnesemia; E87.6 Hypokalemia; F02.80 Dementia in other diseases classified elsewhere, unspecified severity, without behavioral disturbance, psychotic disturbance, mood disturbance, and anxiety; G30.9 Alzheimer's disease, unspecified; I12.9 Hypertensive chronic kidney disease with stage 1 through stage 4 chronic kidney disease, or unspecified chronic kidney disease; I25.10 Atherosclerotic heart disease of native coronary artery without angina pectoris; M19.90 Unspecified osteoarthritis, unspecified site; N18.3 Chronic kidney disease, stage 3 (moderate); W19.XXXA Unspecified fall, initial encounter; I25.2 Old myocardial infarction; Z79.899 Other long term (current) drug therapy; Z82.49 Family history of ischemic heart disease and other diseases of the circulatory system; Z83.3 Family history of diabetes mellitus
CPT/HCPCS: 36415; 70551; 71010; 73552; 73564; 80048; 80053; 80076; 81001; 82550; 82553; 82607; 82947; 83735; 83880; 84443; 84484; 85027; 85610; 87086; 87186; 93005; 93971; 96374; J2060; J7030; J7060; 97116; 97530; 99285-25

== ENCOUNTER 2017-04-18 16:50 | Observation (INO) | payer OTHER ==
[2017-04-18] MEDS ORDERED: HEPARIN for IV BOLUS 10,000 UNIT/10 ML VIAL. IV ×2 (17:45)
[2017-04-18] MEDS ORDERED: ACETAMINOPHEN 325 MG TABLET. PO (17:45)
[2017-04-18] MEDS ORDERED: ONDANSETRON PF 4 MG/2 ML VIAL. IV (17:45)
[2017-04-18 18:58] LABS: ADD MAN DIFF? NO
[2017-04-18 19:01] LABS: BASO % 0 % (0-3); EOS % 1 % (0-3); HEMATOCRIT 33.3 % (36.0-47.0); HEMOGLOBIN 10.7 g/dL (12.0-15.5); LYMPH # 1.4 x10^3/uL (1.0-4.8); LYMPH % 19 % (24-48); MEAN CORPUSCULAR HEMOGLOBIN 28 pg (25-35); MEAN CORPUSCULAR HGB CONC 32 g/dL (31-37); MEAN CORPUSCULAR VOLUME 87 fL (79-100); MONO % 8 % (0-9); NEUT % 72 % (31-73); PLATELET COUNT 224 x10^3/uL (140-400); RED BLOOD COUNT 3.83 x10^6/uL (3.50-5.40); RED CELL DISTRIBUTION WIDTH 18.4 % (11.5-14.5); WHITE BLOOD COUNT 7.2 x10^3/uL (4.0-11.0)
[2017-04-18 19:10] LABS: ANION GAP 10 (6-14); BLOOD UREA NITROGEN 20 mg/dL (7-20); BUN/CREATININE RATIO 15 (6-20); CALCIUM 9.1 mg/dL (8.5-10.1); CARBON DIOXIDE 29 mmol/L (21-32); CHLORIDE 104 mmol/L (98-107); CREATININE 1.3 mg/dL (0.6-1.0); GFR 47.2; GLUCOSE 83 mg/dL (70-99); SODIUM 143 mmol/L (136-145)
[2017-04-18 19:12] LABS: INR 1.2 (0.8-1.1); PARTIAL THROMBOPLASTIN TIME 25 SEC (24-38)
[2017-04-18 19:16] LABS: ALBUMIN 3.7 g/dL (3.4-5.0); ALBUMIN/GLOBULIN RATIO 0.9 (1.0-1.7); ALK PHOS 63 U/L (46-116); ALT (SGPT) 19 U/L (14-59); AST (SGOT) 26 U/L (15-37); TOTAL BILIRUBIN 0.6 mg/dL (0.2-1.0)
[2017-04-18] MEDS: HEPARIN for IV BOLUS 10,000 UNIT/10 ML VIAL. IV (19:34)
[2017-04-18] MEDS: HEPARIN 25,000UTS/500ML PREMIX 500 ML IV (19:39)
[2017-04-19 01:44] LABS: ADD MAN DIFF? NO
[2017-04-19 02:46] LABS: BASO % 0 % (0-3); EOS % 1 % (0-3); HEMATOCRIT 30.1 % (36.0-47.0); HEMOGLOBIN 9.9 g/dL (12.0-15.5); LYMPH # 1.9 x10^3/uL (1.0-4.8); LYMPH % 29 % (24-48); MEAN CORPUSCULAR HEMOGLOBIN 28 pg (25-35); MEAN CORPUSCULAR HGB CONC 33 g/dL (31-37); MEAN CORPUSCULAR VOLUME 87 fL (79-100); MONO % 8 % (0-9); NEUT % 62 % (31-73); PLATELET COUNT 220 x10^3/uL (140-400); RED BLOOD COUNT 3.48 x10^6/uL (3.50-5.40); RED CELL DISTRIBUTION WIDTH 18.4 % (11.5-14.5); WHITE BLOOD COUNT 6.8 x10^3/uL (4.0-11.0)
[2017-04-19 02:54] LABS: ANION GAP 10 (6-14); BLOOD UREA NITROGEN 18 mg/dL (7-20); CARBON DIOXIDE 27 mmol/L (21-32); CHLORIDE 106 mmol/L (98-107); CREATININE 1.3 mg/dL (0.6-1.0); GFR 47.2; GLUCOSE 85 mg/dL (70-99); POTASSIUM 3.8 mmol/L (3.5-5.1); SODIUM 143 mmol/L (136-145)
[2017-04-19] MEDS: RIVAROXABAN 15 MG TABLET. PO (09:35)
[2017-04-19] MEDS ORDERED: ANTI-COAG MONITOR BY PHARMACY. MC (09:45)
== END 2017-04-19 12:51 | disposition home or self-care (01) ==
LOC: ER 16:50 → 5 NORTH 17:20
DX: I82.491 Acute embolism and thrombosis of other specified deep vein of right lower extremity (principal); G30.1 Alzheimer's disease with late onset; F02.81 Dementia in other diseases classified elsewhere, unspecified severity, with behavioral disturbance; I25.10 Atherosclerotic heart disease of native coronary artery without angina pectoris; E78.00 Pure hypercholesterolemia, unspecified; I11.0 Hypertensive heart disease with heart failure; I50.9 Heart failure, unspecified; I12.9 Hypertensive chronic kidney disease with stage 1 through stage 4 chronic kidney disease, or unspecified chronic kidney disease; N18.9 Chronic kidney disease, unspecified; E78.2 Mixed hyperlipidemia; M19.91 Primary osteoarthritis, unspecified site; I73.9 Peripheral vascular disease, unspecified; Z82.49 Family history of ischemic heart disease and other diseases of the circulatory system; Z83.3 Family history of diabetes mellitus
CPT/HCPCS: 36415; 80048; 80053; 85025; 85520; 85610; 85730; 96365; 96366; 96374; 96375; 99285-25; G0378; G0379; J1644

== ENCOUNTER 2017-09-20 15:52 | Emergency (ER) | payer OTHER ==
[2017-09-20 16:24] LABS: ADD MAN DIFF? NO
[2017-09-20 16:31] LABS: BASO % 1 % (0-3); EOS # 0.1 x10^3/uL (0.0-0.7); EOS % 1 % (0-3); HEMATOCRIT 34.8 % (36.0-47.0); HEMOGLOBIN 11.4 g/dL (12.0-15.5); LYMPH # 1.3 x10^3/uL (1.0-4.8); LYMPH % 20 % (24-48); MEAN CORPUSCULAR HEMOGLOBIN 29 pg (25-35); MEAN CORPUSCULAR HGB CONC 33 g/dL (31-37); MEAN CORPUSCULAR VOLUME 89 fL (79-100); MONO # 0.5 x10^3/uL (0.0-1.1); MONO % 8 % (0-9); NEUT # 4.6 x10^3uL (1.8-7.7); NEUT % 71 % (31-73); PLATELET COUNT 211 x10^3/uL (140-400); RED BLOOD COUNT 3.92 x10^6/uL (3.50-5.40); RED CELL DISTRIBUTION WIDTH 16.6 % (11.5-14.5); WHITE BLOOD COUNT 6.4 x10^3/uL (4.0-11.0)
[2017-09-20 16:38] LABS: BILIRUBIN,URINE NEGATIVE (NEG); CLARITY,URINE CLOUDY; COLOR,URINE YELLOW; GLUCOSE,URINE NEGATIVE (NEG); NITRITE,URINE POSITIVE (NEG); PH,URINE 5.5; PROTEIN,URINE NEGATIVE (NEG-TRACE); UROBILINOGEN,URINE 0.2 mg/dL (0.2 mg/dL)
[2017-09-20 16:39] LABS: ANION GAP 9 (6-14); BLOOD UREA NITROGEN 37 mg/dL (7-20); CALCIUM 9.2 mg/dL (8.5-10.1); CARBON DIOXIDE 26 mmol/L (21-32); CHLORIDE 104 mmol/L (98-107); CREATININE 1.4 mg/dL (0.6-1.0); GFR 43.3; GLUCOSE 104 mg/dL (70-99); POTASSIUM 3.9 mmol/L (3.5-5.1); SODIUM 139 mmol/L (136-145)
[2017-09-20 16:45] LABS: BACTERIA,URINE MANY /HPF (0-FEW); RBC,URINE OCC /HPF (0-2); WBC,URINE >40 /HPF (0-4)
[2017-09-20 16:52] LABS: NT-PRO BNP 133 pg/mL (0-449)
[2017-09-20 16:55] LABS: TROPONINI < 0.017 ng/mL (0.000-0.055)
== END 2017-09-20 18:10 | disposition home or self-care (01) ==
LOC: ER 15:52
DX: R55 Syncope and collapse (principal); N39.0 Urinary tract infection, site not specified; R51 Headache; I11.0 Hypertensive heart disease with heart failure; I50.9 Heart failure, unspecified; E78.00 Pure hypercholesterolemia, unspecified; G30.9 Alzheimer's disease, unspecified; F02.80 Dementia in other diseases classified elsewhere, unspecified severity, without behavioral disturbance, psychotic disturbance, mood disturbance, and anxiety; Z86.718 Personal history of other venous thrombosis and embolism
CPT/HCPCS: 36415; 51701; 70450; 80048; 81001; 83880; 84484; 85025; 87086; 87186; 93005; 96365; 99285; J0690

== ENCOUNTER 2018-01-20 11:16 | Emergency (ER) | payer OTHER ==
[~2018-01-20] VITALS: Ht 165.1 cm; Wt 72.6 kg
[2018-01-20 11:16] VITALS: BP 120/56
[~2018-01-20 11:16] MED LIST changes: +AMLO5TAB7 PO; +ASPI-482 PO; +ASPI-630 PO; -ASPI81TA2 PO; -DONE5TAB33 PO; +DONE5TAB56 PO; +ERGO500027 PO; +MAGN400T3 PO; +MELA3TAB2 PO; +Magnesium Oxide PO; +NITR100C62 PO; +PYRI50CA PO; +SERT50TA PO
[2018-01-20 11:50] LABS: BASO % 0 % (0-3); EOS # 0.1 x10^3/uL (0.0-0.7); EOS % 1 % (0-3); HEMOGLOBIN 11.8 g/dL (12.0-15.5); LYMPH # 1.6 x10^3/uL (1.0-4.8); LYMPH % 24 % (24-48); MEAN CORPUSCULAR HEMOGLOBIN 29 pg (25-35); MEAN CORPUSCULAR HGB CONC 34 g/dL (31-37); MEAN CORPUSCULAR VOLUME 87 fL (79-100); MONO # 0.4 x10^3/uL (0.0-1.1); MONO % 7 % (0-9); NEUT # 4.3 x10^3uL (1.8-7.7); NEUT % 67 % (31-73); PLATELET COUNT 249 x10^3/uL (140-400); RED BLOOD COUNT 4.04 x10^6/uL (3.50-5.40); RED CELL DISTRIBUTION WIDTH 16.3 % (11.5-14.5); WHITE BLOOD COUNT 6.5 x10^3/uL (4.0-11.0)
--- NOTE | 2018-01-20 11:57 | PHYS DOC ---
Past Medical History Past Medical History: CHF, Dementia, DVT, High Cholesterol, Hypertension, Other Additional Past Medical Histor: ALZHEIMER'S Past Surgical History: Other Additional Past Surgical Histo: UNKNOWN Alcohol Use: None Drug Use: None Adult General Chief Complaint Chief Complaint: SYNCOPE HPI HPI Patient is a 82 year old mention recurrent COPD who presents with headache, dizziness and near syncopal episode while sitting on the commode while at home. This was witnessed by family members. Patient was straining to have a bowel movement, then began to feel light headed and plans with headache. Family members with to get aspirin when they return the patient slumped over the commode. The patient did not fall. Headache is currently rated this mild. Patient reports continued dizziness. On EMS arrival, the patient's blood pressure is 130s sinus bradycardia with heart rate in the 50s. Patient has been seen in this emergency department multiple times for syncopal episodes. No report of chest pain palpitations, cardiac arrhythmia. History is limited due to presence of dementia.[] Review of Systems Review of Systems Review symptoms as per history of present illness. All other review symptoms are negative.] All other systems were reviewed and found to be within normal limits, except as documented in this note. Allergies Allergies Allergies Coded Allergies Type Severity Reaction Last Updated Verified No Known Drug Allergies 06/02/16 No Physical Exam Physical Exam Constitutional: Well developed, well nourished, no acute distress, non-toxic appearance. [] HENT: Normocephalic, atraumatic, bilateral external ears normal, oropharynx moist, nose normal. [] Eyes: PERRLA, EOMI, conjunctiva normal. [] Neck: Normal range of motion, no tenderness. [] Cardiovascular:Heart rate regular rhythm, no murmur. [] Lungs & Thorax: Bilateral breath sounds clear to auscultation. [] Abdomen: Bowel sounds normal, soft, no tenderness. [] Skin: Warm, dry. [] Back: No tenderness. [] Extremities: No tenderness, no edema. [] Neurologic: Alert and oriented X 1 CN 2-12 grossly intact, normal motor function , normal sensory function, no focal deficits noted. [] Psychologic: Affect normal, judgement normal, mood normal. [] Current Patient Data Vital Signs Vital Signs Date Time Temp Pulse Resp B/P (MAP) Pulse Ox O2 Delivery O2 Flow Rate FiO2 01/20/18 11:16 97.5 50 16 120/56 (77) 99 Room Air 97.5 Lab Values Laboratory Tests Test 01/20/18 11:30 White Blood Count 6.5 x10^3/uL (4.0-11.0) Red Blood Count 4.04 x10^6/uL (3.50-5.40) Hemoglobin 11.8 g/dL (12.0-15.5) L Hematocrit 35.0 % (36.0-47.0) L Mean Corpuscular Volume 87 fL (79-100) Mean Corpuscular Hemoglobin 29 pg (25-35) Mean Corpuscular Hemoglobin Concent 34 g/dL (31-37) Red Cell Distribution Width 16.3 % (11.5-14.5) H Platelet Count 249 x10^3/uL (140-400) Neutrophils (%) (Auto) 67 % (31-73) Lymphocytes (%) (Auto) 24 % (24-48) Monocytes (%) (Auto) 7 % (0-9) Eosinophils (%) (Auto) 1 % (0-3) Basophils (%) (Auto) 0 % (0-3) Neutrophils # (Auto) 4.3 x10^3uL (1.8-7.7) Lymphocytes # (Auto) 1.6 x10^3/uL (1.0-4.8) Monocytes # (Auto) 0.4 x10^3/uL (0.0-1.1) Eosinophils # (Auto) 0.1 x10^3/uL (0.0-0.7) Basophils # (Auto) 0.0 x10^3/uL (0.0-0.2) Sodium Level 143 mmol/L (136-145) Potassium Level 3.7 mmol/L (3.5-5.1) Chloride Level 105 mmol/L (98-107) Carbon Dioxide Level 27 mmol/L (21-32) Anion Gap 11 (6-14) Blood Urea Nitrogen 22 mg/dL (7-20) H Creatinine 1.6 mg/dL (0.6-1.0) H Estimated GFR (Cockcroft-Gault) 37.2 BUN/Creatinine Ratio 14 (6-20) Glucose Level 94 mg/dL (70-99) Calcium Level 9.6 mg/dL (8.5-10.1) Total Bilirubin 0.6 mg/dL (0.2-1.0) Aspartate Amino Transferase (AST) 22 U/L (15-37) Alanine Aminotransferase (ALT) 25 U/L (14-59) Alkaline Phosphatase 59 U/L (46-116) Troponin I Quantitative < 0.017 ng/mL (0.000-0.055) CI-Afu-J-Type Natriuretic Peptide 256 pg/mL (0-449) Total Protein 8.3 g/dL (6.4-8.2) H Albumin 3.7 g/dL (3.4-5.0) Albumin/Globulin Ratio 0.8 (1.0-1.7) L Laboratory Tests 01/20/18 11:30 Laboratory Tests 01/20/18 11:30 EKG EKG [EKG: sinus yanet, rate 50. ] Radiology/Procedures Radiology/Procedures [CT head: NAD ds ] Course & Med Decision Making Course & Med Decision Making Pertinent Labs and Imaging studies reviewed. (See chart for details) [Patient with prior to couple episodes. No acute neurologic deficits return to baseline in the emergency department. Suspect vasovagal episode while using commode. Recommend following up with PCP for further outpatient evaluation. Return precautions reviewed.] Dragon Disclaimer Dragon Disclaimer This electronic medical record was generated, in whole or in part, using a voice recognition dictation system. Departure Departure Referrals: DONNA BAEZA MD (PCP) SAMIR MICHELLE DO Jan 20, 2018 11:57
[2018-01-20 11:59] LABS: CALCIUM 9.6 mg/dL (8.5-10.1); CREATININE 1.6 mg/dL (0.6-1.0); GFR 37.2; POTASSIUM 3.7 mmol/L (3.5-5.1)
[2018-01-20 12:05] LABS: ALBUMIN 3.7 g/dL (3.4-5.0); ALBUMIN/GLOBULIN RATIO 0.8 (1.0-1.7); TOTAL BILIRUBIN 0.6 mg/dL (0.2-1.0); TOTAL PROTEIN 8.3 g/dL (6.4-8.2)
--- NOTE | 2018-01-20 12:26 | RAD ---
EXAM: CT Head without IV contrast CLINICAL HISTORY: SYNCOPAL EPISODE, HEADACHE, HX OF ALZHIEMERS DISEASE, AND DEMENTIA, PRIOR SENT COMPARISON: 09/20/2017 TECHNIQUE: Routine CT of the head without contrast. Soft tissues and bone windows were reviewed. PQRS compliance statement - One or more of the following individualized dose reduction techniques were utilized for this study: 1. Automated exposure control 2. Adjustment of the mA and/or kV according to patient size 3. Use of iterative reconstruction technique FINDINGS: There is no evidence of hemorrhage, mass or extra-axial fluid collection. Montoya-white differentiation is maintained with no evidence of edema. There are non-specific foci of hypodensity in the periventricular and subcortical white matter of the cerebral hemispheres. There is no mass effect or shift of the intracranial structures. The ventricles and cerebral sulci are prominent for the patients stated age consistent with generalized cerebral volume loss. The cerebellum and brainstem are unremarkable. The calvarium demonstrates no evidence of fracture or focal lesion. There is normal aeration of the visualized paranasal sinuses and mastoid air cells. The visualized portions of the orbits are normal. Atherosclerotic calcifications of the intracranial internal carotid and vertebral arteries is seen. IMPRESSION: 1. No evidence of acute intracranial abnormality. 2. Changes of chronic small vessel disease. Electronically signed by: Fabricio Rubio MD (01/20/2018 12:23 PM) [facility]
--- NOTE | 2018-01-21 10:18 | RAD ---
AP chest. HISTORY: Dizziness AP view was taken of the chest. Patient's taken a poor inspiration. There is a granuloma in the right lung. There are no acute infiltrates. There is no effusion. IMPRESSION: 1. Poor inspiration. 2. No acute infiltrates. Electronically signed by: Jeancarlos Ling MD (01/21/2018 10:15 AM) [facility]
--- NOTE | 2018-01-21 21:10 | EKG ---
[facility] [address] [place] [address] Test Date: 2018-01-20 Test Time: 11:25:34 Pat Name: NANETTE HIGH Department: Room: Gender: F [employer]er Driver: : 1935 Requested By: SAMIR MICHELLE Order Number: [id number] Reading MD: Randall Valente Measurements Intervals [place] Rate: 50 P: 0 NE: 194 QRS: -12 QRSD: 80 T: 137 QT: 446 QTc: 409 Interpretive Statements SINUS RHYTHM LEFTWARD AXIS T ABNORMALITY IN HIGH LATERAL LEADS INFERIOR LEADS ABNORMAL ECG Electronically Signed On 01-23-2018 10:55:11 CDT by Randall Valente
== END 2018-01-20 14:54 | disposition home or self-care (01) ==
LOC: ER 11:16
DX: R51 Headache (principal); R55 Syncope and collapse; I11.0 Hypertensive heart disease with heart failure; I50.9 Heart failure, unspecified; G30.9 Alzheimer's disease, unspecified; F02.80 Dementia in other diseases classified elsewhere, unspecified severity, without behavioral disturbance, psychotic disturbance, mood disturbance, and anxiety; E78.00 Pure hypercholesterolemia, unspecified; Z86.718 Personal history of other venous thrombosis and embolism
CPT/HCPCS: 36415; 70450; 71045; 80053; 83880; 84484; 85025; 93005; 99285-25

== ENCOUNTER 2018-10-12 08:21 | Emergency (ER) | payer MEDICARE, OTHER ==
[~2018-10-12] VITALS: Ht 170.2 cm; Wt 72.6 kg
[~2018-10-12 08:21] MED LIST changes: +AMLO5TAB10 PO; -AMLO5TAB7 PO
--- NOTE | 2018-10-12 08:40 | PHYS DOC ---
Past Medical History Past Medical History: CHF, Dementia, DVT, High Cholesterol, Hypertension, Other Additional Past Medical Histor: ALZHEIMER'S Past Surgical History: Other Additional Past Surgical Histo: UNKNOWN Alcohol Use: None Drug Use: None Adult General Chief Complaint Chief Complaint: MECHANICAL FALL HPI HPI Patient is a 83 year old female with history of hypertension, high cholesterol, dementia, who presents to the ED today from a care home status post falling. EMS reports patient was being transferred from bed when she slipped and fell. They state she was complaining of left hip pain. Patient is demented and a very poor historian. She seems to grimace when you push on the left hip. EMS states she did not hit her head on the ground. No LOC Review of Systems Review of Systems Constitutional: Denies fever or chills [] HENT: Denies nasal congestion or sore throat [] Respiratory: Denies cough or shortness of breath [] Cardiovascular: No additional information not addressed in HPI [] GI: Denies abdominal pain, nausea, vomiting, bloody stools or diarrhea [] : Denies dysuria or hematuria [] Musculoskeletal: Left hip pain reported by EMS Integument: Denies rash or skin lesions [] Neurologic: Denies headache, focal weakness or sensory changes [] All other systems were reviewed and found to be within normal limits, except as documented in this note. Current Medications Current Medications Current Medications Medications (Trade) Dose Ordered Sig/Jesus Start Time Stop Time Status Last Admin Dose Admin Ceftriaxone Sodium (Rocephin) 1 gm 1X ONCE 10/12/18 10:15 10/12/18 10:16 DC Allergies Allergies Allergies Coded Allergies Type Severity Reaction Last Updated Verified No Known Drug Allergies 06/02/16 No Physical Exam Physical Exam Constitutional: Well developed, well nourished, no acute distress, non-toxic appearance. [] HENT: Normocephalic, atraumatic, bilateral external ears normal, oropharynx mo ist, no oral exudates, nose normal. [] Eyes: PERRLA, EOMI, conjunctiva normal, no discharge. [] Neck: Normal range of motion, no tenderness, supple, no stridor. [] Cardiovascular:Heart rate regular rhythm, no murmur [] Lungs & Thorax: Bilateral breath sounds clear to auscultation [] Abdomen: Bowel sounds normal, soft, no tenderness, no masses, no pulsatile masses. [] Skin: Warm, dry, no erythema, no rash. [] Back: No tenderness, no CVA tenderness. [] Extremities: Bilateral lower extremities with no gross deformity, no obvious shortening noted on either lower extremity. Pain elicited on palpation of the left lateral hip. Full range of motion to bilateral hips including internal rotation, external rotation, flexion and extension. +2 bilateral pedal pulses. Cap refill less than 2 seconds bilateral toes. Neurologic: Alert and oriented X 1, normal motor function, normal sensory function, no focal deficits noted. Cranial nerves II through XII intact Psychologic: Affect normal, judgement normal, mood normal. [] Current Patient Data Vital Signs Vital Signs Date Time Temp Pulse Resp B/P (MAP) Pulse Ox O2 Delivery O2 Flow Rate FiO2 10/12/18 08:24 97.4 70 16 146/60 (88) 98 Room Air 97.4 Lab Values Laboratory Tests Test 10/12/18 08:55 10/12/18 09:11 10/12/18 09:52 Urine Collection Type U cath Urine Color Yellow Urine Clarity Hazy Urine pH 6.0 Urine Specific [place] 1.020 Urine Protein Negative mg/dL (NEG-TRACE) Urine Glucose (UA) Negative mg/dL (NEG) Urine Ketones (Stick) Negative mg/dL (NEG) Urine Blood Small (NEG) Urine Nitrite Positive (NEG) Urine Bilirubin Negative (NEG) Urine Urobilinogen Dipstick 0.2 mg/dL (0.2 mg/dL) Urine Leukocyte Esterase Small (NEG) Urine RBC 11-20 /HPF (0-2) Urine WBC Tntc /HPF (0-4) Urine Bacteria Many /HPF (0-FEW) White Blood Count 6.2 x10^3/uL (4.0-11.0) Red Blood Count 4.04 x10^6/uL (3.50-5.40) Hemoglobin 11.8 g/dL (12.0-15.5) L Hematocrit 36.1 % (36.0-47.0) Mean Corpuscular Volume 89 fL (79-100) Mean Corpuscular Hemoglobin 29 pg (25-35) Mean Corpuscular Hemoglobin Concent 33 g/dL (31-37) Red Cell Distribution Width 16.3 % (11.5-14.5) H Platelet Count 222 x10^3/uL (140-400) Neutrophils (%) (Auto) 72 % (31-73) Lymphocytes (%) (Auto) 19 % (24-48) L Monocytes (%) (Auto) 7 % (0-9) Eosinophils (%) (Auto) 2 % (0-3) Basophils (%) (Auto) 0 % (0-3) Neutrophils # (Auto) 4.4 x10^3uL (1.8-7.7) Lymphocytes # (Auto) 1.2 x10^3/uL (1.0-4.8) Monocytes # (Auto) 0.4 x10^3/uL (0.0-1.1) Eosinophils # (Auto) 0.1 x10^3/uL (0.0-0.7) Basophils # (Auto) 0.0 x10^3/uL (0.0-0.2) Sodium Level 142 mmol/L (136-145) Potassium Level 4.3 mmol/L (3.5-5.1) Chloride Level 106 mmol/L (98-107) Carbon Dioxide Level 30 mmol/L (21-32) Anion Gap 6 (6-14) Blood Urea Nitrogen 23 mg/dL (7-20) H Creatinine 1.3 mg/dL (0.6-1.0) H Estimated GFR (Cockcroft-Gault) 47.1 BUN/Creatinine Ratio 18 (6-20) Glucose Level 88 mg/dL (70-99) Calcium Level 9.2 mg/dL (8.5-10.1) Magnesium Level 2.0 mg/dL (1.8-2.4) Total Bilirubin 0.5 mg/dL (0.2-1.0) Aspartate Amino Transferase (AST) 19 U/L (15-37) Alanine Aminotransferase (ALT) 27 U/L (14-59) Alkaline Phosphatase 63 U/L (46-116) Troponin I Quantitative < 0.017 ng/mL (0.000-0.055) TB-Lev-Z-Type Natriuretic Peptide 104 pg/mL (0-449) Total Protein 7.7 g/dL (6.4-8.2) Albumin 3.4 g/dL (3.4-5.0) Albumin/Globulin Ratio 0.8 (1.0-1.7) L Thyroid Stimulating Hormone (TSH) 5.201 uIU/mL (0.358-3.74) H Laboratory Tests 10/12/18 09:11 Laboratory Tests 10/12/18 09:52 EKG EKG 08:[address] Carmen sinus rhythm HR 58 no STEMI[] Radiology/Procedures Radiology/Procedures []PROCEDURE: PORTABLE CHEST 1V AP chest, 10/12/2018: HISTORY: Fall, pain Comparison is made to a study from 01/20/2018. There is chronic elevation of the right hemidiaphragm. The heart size and pulmonary vascularity are normal. There is calcific plaquing of the aorta. A calcified granuloma is present in the right upper lobe. No acute infiltrate is seen. There is no evidence of pleural fluid or pneumothorax. IMPRESSION: 1. Chronic elevation of the right hemidiaphragm. 2. No acute cardiopulmonary abnormality is detected. Electronically signed by: Wilber Joseph MD (10/12/2018 9:38 AM) [facility] DICTATED and SIGNED BY: WILBER JOSEPH MD DATE: 10/12/18937 PROCEDURE: HIP LEFT 2V WITH PELVIS Portable pelvis with left hip, 3 views, 10/12/2018: HISTORY: Fall, hip pain No fracture or dislocation is identified. There is mild narrowing at both hip joints with mild marginal spurring. There are degenerative changes in the lower lumbar spine. Mild scattered arterial calcifications are present. IMPRESSION: No acute bony abnormality is detected. Electronically signed by: Wilber Joseph MD (10/12/2018 9:36 AM) [facility] DICTATED and SIGNED BY: WILBER JOSEPH MD DATE: 10/12/18935 Course & Med Decision Making Course & Med Decision Making Pertinent Labs and Imaging studies reviewed. (See chart for details) This is a 83-year-old female patient who presents to the ED today from a care home status post falling she has Dementia and a very poor historian EMS reports left hip pain. Left hip x-rays including hip is negative for any acute findings. CBC, CMP, troponin, EKG- negative for any acute findings Urine noted for nitrites and leukocytes-given Rocephin in the ED and discharged on cephalexin Dragon Disclaimer Dragon Disclaimer This electronic medical record was generated, in whole or in part, using a voice recognition dictation system. Departure Departure Impression: Primary Impression: Fall Additional Impressions: UTI (urinary tract infection) Contusion of left hip Disposition: 05 TRANSFER OTHER Condition: STABLE Referrals: DONNA BAEZA MD (PCP) follow up in 1 week Patient Instructions: Fall Prevention and Home Safety, Urinary Tract Infection Additional Instructions: Sukhwinder-was evaluated in the emergency room, she was noted to have urinary trac t infection. Give her the prescribed medication until completed. Follow-up with her own doctor in the course of next week. Scripts Cephalexin (CEPHALEXIN) 500 Mg Tablet 1 TAB PO BID, #14 TAB Prov: KOLBY ACUNA APRN 10/12/18 Problem Qualifiers Primary Impression: Fall Encounter type: initial encounter Qualified Codes: W19.XXXA - Unspecified fall, initial encounter Additional Impressions: UTI (urinary tract infection) Urinary tract infection type: site unspecified Hematuria presence: without hematuria Qualified Codes: N39.0 - Urinary tract infection, site not specified Contusion of left hip Encounter type: initial encounter Qualified Codes: S70.02XA - Contusion of left hip, initial encounter KOLBY ACUNA [employer] Oct 12, 2018 08:40
[2018-10-12 09:23] LABS: BILIRUBIN,URINE NEGATIVE (NEG); CLARITY,URINE HAZY; COLOR,URINE YELLOW; NITRITE,URINE POSITIVE (NEG); PROTEIN,URINE NEGATIVE (NEG-TRACE); UROBILINOGEN,URINE 0.2 mg/dL (0.2 mg/dL)
[2018-10-12 09:24] LABS: BACTERIA,URINE MANY /HPF (0-FEW); WBC,URINE TNTC /HPF (0-4)
--- NOTE | 2018-10-12 09:39 | RAD ---
Portable pelvis with left hip, 3 views, 10/12/2018: HISTORY: Fall, hip pain No fracture or dislocation is identified. There is mild narrowing at both hip joints with mild marginal spurring. There are degenerative changes in the lower lumbar spine. Mild scattered arterial calcifications are present. IMPRESSION: No acute bony abnormality is detected. Electronically signed by: Wilber Joseph MD (10/12/2018 9:36 AM) [facility]
--- NOTE | 2018-10-12 09:41 | RAD ---
AP chest, 10/12/2018: HISTORY: Fall, pain Comparison is made to a study from 01/20/2018. There is chronic elevation of the right hemidiaphragm. The heart size and pulmonary vascularity are normal. There is calcific plaquing of the aorta. A calcified granuloma is present in the right upper lobe. No acute infiltrate is seen. There is no evidence of pleural fluid or pneumothorax. IMPRESSION: 1. Chronic elevation of the right hemidiaphragm. 2. No acute cardiopulmonary abnormality is detected. Electronically signed by: Wilber Joseph MD (10/12/2018 9:38 AM) [facility]
[2018-10-12 09:42] LABS: BASO % 0 % (0-3); EOS # 0.1 x10^3/uL (0.0-0.7); EOS % 2 % (0-3); HEMATOCRIT 36.1 % (36.0-47.0); HEMOGLOBIN 11.8 g/dL (12.0-15.5); LYMPH # 1.2 x10^3/uL (1.0-4.8); LYMPH % 19 % (24-48); MEAN CORPUSCULAR HEMOGLOBIN 29 pg (25-35); MEAN CORPUSCULAR HGB CONC 33 g/dL (31-37); MEAN CORPUSCULAR VOLUME 89 fL (79-100); MONO # 0.4 x10^3/uL (0.0-1.1); MONO % 7 % (0-9); NEUT # 4.4 x10^3uL (1.8-7.7); NEUT % 72 % (31-73); PLATELET COUNT 222 x10^3/uL (140-400); RED BLOOD COUNT 4.04 x10^6/uL (3.50-5.40); RED CELL DISTRIBUTION WIDTH 16.3 % (11.5-14.5); WHITE BLOOD COUNT 6.2 x10^3/uL (4.0-11.0)
[2018-10-12] MEDS ORDERED: cefTRIAXone IV Push 1 GM VIAL. IVP ONE (10:15)
--- NOTE | 2018-10-12 10:34 | EKG ---
[facility] [address] [place] [address] Test Date: 2018-10-12 Test Time: 08:41:27 Pat Name: NANETTE HIGH Department: Room: Gender: F [employer] Developer: : 1935 Requested By: KOLBY ACUNA Order Number: [id number] Reading MD: Measurements Intervals [place] Rate: 58 P: 36 ND: 198 QRS: -12 QRSD: 80 T: 92 QT: 458 QTc: 453 Interpretive Statements SINUS RHYTHM LEFTWARD AXIS T ABNORMALITY IN HIGH LATERAL LEADS ABNORMAL ECG No previous ECG available for comparison
[2018-10-12 10:39] LABS: ALBUMIN 3.4 g/dL (3.4-5.0); ALBUMIN/GLOBULIN RATIO 0.8 (1.0-1.7); CALCIUM 9.2 mg/dL (8.5-10.1); CREATININE 1.3 mg/dL (0.6-1.0); GFR 47.1; POTASSIUM 4.3 mmol/L (3.5-5.1); TOTAL BILIRUBIN 0.5 mg/dL (0.2-1.0); TOTAL PROTEIN 7.7 g/dL (6.4-8.2)
[2018-10-12 10:55] VITALS: BP 153/82
[2018-10-12] MEDS ORDERED: CEPH500T PO (11:00)
== END 2018-10-12 11:45 | disposition home or self-care (01) ==
LOC: ER 08:21
DX: S70.02XA Contusion of left hip, initial encounter (principal); N39.0 Urinary tract infection, site not specified; E78.00 Pure hypercholesterolemia, unspecified; I11.0 Hypertensive heart disease with heart failure; I50.9 Heart failure, unspecified; G30.9 Alzheimer's disease, unspecified; F02.80 Dementia in other diseases classified elsewhere, unspecified severity, without behavioral disturbance, psychotic disturbance, mood disturbance, and anxiety; W01.0XXA Fall on same level from slipping, tripping and stumbling without subsequent striking against object, initial encounter; Y93.89 Activity, other specified; Y92.128 Other place in nursing home as the place of occurrence of the external cause; Y99.8 Other external cause status
CPT/HCPCS: 36415; 51701; 71045; 73502; 80053; 81001; 83735; 83880; 84443; 84484; 85025; 93005; 96374; 99285; J0696

== ENCOUNTER 2018-11-28 19:54 | Inpatient (IN) | payer OTHER ==
[~2018-11-28] VITALS: Ht 162.6 cm; Wt 79.4 kg
[~2018-11-28 19:54] MED LIST changes: +CEPH500T PO
[2018-11-28 20:14] LABS: BILIRUBIN,URINE SMALL (NEG); CLARITY,URINE TURBID; COLOR,URINE AMBER; NITRITE,URINE POSITIVE (NEG); PH,URINE 5.5; PROTEIN,URINE 100 mg/dL (NEG-TRACE); UROBILINOGEN,URINE 0.2 mg/dL (0.2 mg/dL)
[2018-11-28 20:20] LABS: FECAL OB PT NEGATIVE (NEG)
[2018-11-28 20:22] LABS: BACTERIA,URINE MANY /HPF (0-FEW); SQUAMOUS EPITHELIAL CELL,UR FEW /LPF; WBC,URINE TNTC /HPF (0-4)
[2018-11-28] MEDS ORDERED: IV NORMAL SALINE 500ML BAG 500 ML IV ONE (20:30)
[2018-11-28 20:42] LABS: BASO % 0 % (0-3); EOS % 1 % (0-3); HEMATOCRIT 38.4 % (36.0-47.0); HEMOGLOBIN 12.9 g/dL (12.0-15.5); LYMPH % 14 % (24-48); MEAN CORPUSCULAR HEMOGLOBIN 30 pg (25-35); MEAN CORPUSCULAR HGB CONC 34 g/dL (31-37); MEAN CORPUSCULAR VOLUME 88 fL (79-100); MONO # 0.5 x10^3/uL (0.0-1.1); MONO % 7 % (0-9); NEUT # 5.4 x10^3/uL (1.8-7.7); NEUT % 79 % (31-73); PLATELET COUNT 242 x10^3/uL (140-400); RED BLOOD COUNT 4.35 x10^6/uL (3.50-5.40); RED CELL DISTRIBUTION WIDTH 16.1 % (11.5-14.5); WHITE BLOOD COUNT 6.9 x10^3/uL (4.0-11.0)
[2018-11-28 20:48] LABS: PROTHROMBIN TIME PATIENT 13.1 SEC (11.7-14.0)
[2018-11-28 20:54] LABS: CALCIUM 9.3 mg/dL (8.5-10.1); CREATININE 1.7 mg/dL (0.6-1.0); GFR 34.6; POTASSIUM 4.3 mmol/L (3.5-5.1)
--- NOTE | 2018-11-28 20:56 | RAD ---
Exam: Chest one view INDICATION: Near syncope TECHNIQUE: Frontal view of the chest Comparisons: 10/12/2018 FINDINGS: The cardiomediastinal silhouette and pulmonary vessels are within normal limits. The lung and pleural spaces are clear. Stable elevation of the right hemidiaphragm. IMPRESSION: No acute cardiopulmonary process. Electronically signed by: Mor Nicolas MD (11/28/2018 8:54 PM) [facility]
[2018-11-28 21:01] LABS: ALBUMIN 3.7 g/dL (3.4-5.0); ALBUMIN/GLOBULIN RATIO 0.8 (1.0-1.7); TOTAL BILIRUBIN 0.7 mg/dL (0.2-1.0); TOTAL PROTEIN 8.6 g/dL (6.4-8.2)
[2018-11-28] MEDS ORDERED: cefTRIAXone IV Push 1 GM VIAL. IVP ONE (22:00)
--- NOTE | 2018-11-28 22:11 | PHYS DOC ---
Past Medical History Past Medical History: CHF, Dementia, DVT, High Cholesterol, Hypertension, Other Additional Past Medical Histor: ALZHEIMER'S Past Surgical History: Other Additional Past Surgical Histo: UNKNOWN Alcohol Use: None Drug Use: None Adult General Chief Complaint Chief Complaint: NEAR SYNCOPE HPI HPI Patient is a 83 year old BIBA WITH near syncope. pt has a hx of dementia patient apparently was on the toilet getting changed and the patient slumped over and was nearly unconscious for a period of time. hx limited by dementia apparently patient was at dentist on monday heart rate was low (sister doesnt know how low), referred to cardiology supposed to go there tomorrow. Review of Systems Review of Systems greer by dementia Current Medications Current Medications Current Medications Medications (Trade) Dose Ordered Sig/Jesus Start Time Stop Time Status Last Admin Dose Admin Ceftriaxone Sodium (Rocephin) 1 gm 1X ONCE 11/28/18 22:00 11/28/18 22:01 Sodium Chloride 1,000 ml @ 60 mls/hr [id number] 11/28/18 21:52 11/29/18 21:51 Allergies Allergies Allergies Coded Allergies Type Severity Reaction Last Updated Verified No Known Drug Allergies 06/02/16 No Physical Exam Physical Exam Constitutional: Well developed, well nourished, no acute distress, non-toxic appearance. [] HENT: Normocephalic, atraumatic, bilateral external ears normal, oropharynx dry, no oral exudates, nose normal. [] Eyes: PERRLA, EOMI, conjunctiva normal, no discharge. [] Neck: Normal range of motion, no tenderness, supple, no stridor. [] Cardiovascular:Heart rate regular rhythm, no murmur [] Lungs & Thorax: Bilateral breath sounds clear to auscultation [] Abdomen: Bowel sounds normal, soft, no tenderness, no masses, no pulsatile masses. [] Skin: Warm, dry, no erythema, no rash. [] Extremities: No tenderness, no cyanosis, no clubbing, ROM intact, no edema. [] Neurologic: Alert and oriented X1 yelling when touched otherwise calm and coop erative. psych: obvious dementia, calm and cooperative when resting Current Patient Data Vital Signs Vital Signs Date Time Temp Pulse Resp B/P (MAP) Pulse Ox O2 Delivery O2 Flow Rate FiO2 11/28/18 20:57 60 15 99 11/28/18 20:05 96.4 142/84 (103) Room Air 96.4 Lab Values Laboratory Tests Test 11/28/18 20:00 11/28/18 20:05 11/28/18 20:25 Stool Occult Blood Negative (NEG) Urine Collection Type Unknown Urine Color Franci Urine Clarity Turbid Urine pH 5.5 Urine Specific [place] 1.025 Urine Protein 100 mg/dL (NEG-TRACE) Urine Glucose (UA) Negative mg/dL (NEG) Urine Ketones (Stick) Trace mg/dL (NEG) Urine Blood Large (NEG) Urine Nitrite Positive (NEG) Urine Bilirubin Small (NEG) Urine Urobilinogen Dipstick 0.2 mg/dL (0.2 mg/dL) Urine Leukocyte Esterase Large (NEG) Urine RBC /HPF (0-2) Urine WBC Tntc /HPF (0-4) Urine Squamous Epithelial Cells Few /LPF Urine Bacteria Many /HPF (0-FEW) Urine Mucus Mod /LPF White Blood Count 6.9 x10^3/uL (4.0-11.0) Red Blood Count 4.35 x10^6/uL (3.50-5.40) Hemoglobin 12.9 g/dL (12.0-15.5) Hematocrit 38.4 % (36.0-47.0) Mean Corpuscular Volume 88 fL (79-100) Mean Corpuscular Hemoglobin 30 pg (25-35) Mean Corpuscular Hemoglobin Concent 34 g/dL (31-37) Red Cell Distribution Width 16.1 % (11.5-14.5) H Platelet Count 242 x10^3/uL (140-400) Neutrophils (%) (Auto) 79 % (31-73) H Lymphocytes (%) (Auto) 14 % (24-48) L Monocytes (%) (Auto) 7 % (0-9) Eosinophils (%) (Auto) 1 % (0-3) Basophils (%) (Auto) 0 % (0-3) Neutrophils # (Auto) 5.4 x10^3/uL (1.8-7.7) Lymphocytes # (Auto) 1.0 x10^3/uL (1.0-4.8) Monocytes # (Auto) 0.5 x10^3/uL (0.0-1.1) Eosinophils # (Auto) 0.0 x10^3/uL (0.0-0.7) Basophils # (Auto) 0.0 x10^3/uL (0.0-0.2) Prothrombin Time 13.1 SEC (11.7-14.0) Prothrombin Time INR 1.0 (0.8-1.1) Sodium Level 142 mmol/L (136-145) Potassium Level 4.3 mmol/L (3.5-5.1) Chloride Level 104 mmol/L (98-107) Carbon Dioxide Level 25 mmol/L (21-32) Anion Gap 13 (6-14) Blood Urea Nitrogen 28 mg/dL (7-20) H Creatinine 1.7 mg/dL (0.6-1.0) H Estimated GFR (Cockcroft-Gault) 34.6 BUN/Creatinine Ratio 16 (6-20) Glucose Level 124 mg/dL (70-99) H Calcium Level 9.3 mg/dL (8.5-10.1) Total Bilirubin 0.7 mg/dL (0.2-1.0) Aspartate Amino Transferase (AST) 41 U/L (15-37) H Alanine Aminotransferase (ALT) 54 U/L (14-59) Alkaline Phosphatase 70 U/L (46-116) Troponin I Quantitative < 0.017 ng/mL (0.000-0.055) Total Protein 8.6 g/dL (6.4-8.2) H Albumin 3.7 g/dL (3.4-5.0) Albumin/Globulin Ratio 0.8 (1.0-1.7) L Laboratory Tests 11/28/18 20:25 Laboratory Tests 11/28/18 20:25 EKG EKG []probable sinus rhythm no stemi poor baseline rate 63 Radiology/Procedures Radiology/Procedures [] FINDINGS: The cardiomediastinal silhouette and pulmonary vessels are within normal limits. The lung and pleural spaces are clear. Stable elevation of the right hemidiaphragm. IMPRESSION: No acute cardiopulmonary process. Electronically signed by: Mor De Leon MD (11/28/2018 8:54 PM) [facility] DICTATED and SIGNED BY: MOR DE LEON MD DATE: 11/28/182053 Impressions: cxr neg acute Course & Med Decision Making Course & Med Decision Making Pertinent Labs and Imaging studies reviewed. (See chart for details) 83 yo f hx of dementia Presented to the emergency room with sort of a near syncopal event while on the toilet. Initially there was a report from the paramedics that the carbide powder processor thought she saw some dark colored stool however she had brown stool here her hemoglobin is normal the stool sent to lab and was negative Patient does have a urinary tract infection. In addition she was being evaluated on an outpatient basis for some bradycardia for details on that are not clear at this time however I still spoke with Dr. josé on-call for Dr. Ryan recommended admission to the sixth floor . I gave him ceftriaxone and gentle fluid in the emergency room. Creat to 1.7 (baseline of approximately 1.3-1.6. EKG here was probably sinus was a poor baseline but her heart rate was in the 60s throughout the emergency room visit on the monitor Dragon Disclaimer Dragon Disclaimer This electronic medical record was generated, in whole or in part, using a voice recognition dictation system. Departure Departure Impression: Primary Impression: UTI (urinary tract infection) Additional Impression: Syncope Disposition: 09 ADMITTED INPATIENT Admitting Physician: Donna Ryan Condition: STABLE Referrals: DONNA RYAN MD (PCP) Problem Qualifiers VIGNESH CONTRERAS MD Nov 28, 2018 22:11
[2018-11-29] VITALS (7 sets, daily range): BP systolic 107–147; BP diastolic 49–64
[2018-11-29] MEDS: IV NORMAL SALINE 1000ML BAG 1,000 ML IV SCH ×3 (00:22→14:32)
--- NOTE | 2018-11-29 05:36 | EKG ---
[facility] [address] [place] [address] Test Date: 2018-11-28 Test Time: 20:11:03 Pat Name: NANETTE HIGH Department: Room: Gender: [employer] Department Chair: : [id number] Requested By: VIGNESH CONTRERAS Order Number: [id number] Reading MD: Measurements Intervals [place] Rate: 63 P: NM: QRS: 10 QRSD: 86 T: 134 QT: 514 QTc: 530 Interpretive Statements ATRIAL FLUTTER T ABNORMALITY IN ANTEROLATERAL LEADS PROLONGED QT ABNORMAL ECG RI6.01 No previous ECG available for comparison
--- NOTE | 2018-11-29 09:32 | NUR ---
Pt appears dependent for adls at home but does transfer and use w/c likely with assistance. Would benefit from PT assessment to ensure mobility safe for return home. Please write PT eval and treat orders if you agree. Addendum: 11/29/18 at 2303 by NEHA MAURICIO PT Amended: Links added.
--- NOTE | 2018-11-29 12:11 | PDOC ---
Provider Note Provider Note Patient seen. History and Physical dictated. See dictation# [id number] DONNA BAEZA MD Nov 29, 2018 12:11
[2018-11-29] MEDS: SERTRALINE 50 MG TABLET. PO SCH (12:31)
[2018-11-29] MEDS: amLODIPine BESYLATE 5 MG TABLET PO SCH (12:31)
[2018-11-29] MEDS: SENNOSIDES 8.6 MG TABLET PO SCH ×2 (12:31→21:00)
[2018-11-29] MEDS: ASPIRIN ENTERIC COATED 81 MG TABLET.DR. PO SCH (12:32)
[2018-11-29] MEDS: cefTRIAXone IV Push 1 GM VIAL. IVP SCH (12:32)
[2018-11-29] MEDS: HEPARIN for SUB-Q USE 5,000 UNIT/ML VIAL. SQ SCH ×2 (12:45→21:00)
--- NOTE | 2018-11-29 12:51 | PDOC2 ---
[facility] [facility] [employer] 11/29/18 1251: CARDIAC CONSULT DATE OF CONSULT Date of Consult DATE: 11/29/18 TIME: 12:44 REASON FOR CONSULT Reason for Consult: 11/29/18 REFERRING PHYSICIAN Referring Physician: [id number] SOURCE Source: Chart review HISTORY OF PRESENT ILLNESS HISTORY OF PRESENT ILLNESS This is an 83 yo female who presented secondary to syncopal episode. Patient was scheduled for dental procedure a couple of days ago. HR was noted to be low in the 30's and 40's, which prompted cancellation of the procedure. Patient was referred to her Primary Care Physician. HR was noted in the upper 40's at the office. She was reportedly asymptomatic at that time. Aricept was discontinued. This morning, patient was apparently on the toilet getting changed and became unconscious and slumped over. History obtain from chart review due to dementia. Presently SB with a rate near 50. No pauses noted thus far. Lowest HR 39. PAST MEDICAL HISTORY Cardiovascular: HTN, Hyperlipidemia CENTRAL NERVOUS SYSTEM: Dementia Heme/Onc: Other (DVT) Endocrine: Diabetes PAST SURGICAL HISTORY Past Surgical History: No pertinent history FAMILY HISTORY Family History: Diabetes, Hypertension SOCIAL HISTORY Smoke: No ALCOHOL: none Drugs: None Lives: with Family CURRENT MEDICATIONS CURRENT MEDICATIONS Current Medications Medications (Trade) Dose Ordered Sig/Jesus Route PRN Reason Start Time Stop Time Status Last Admin Dose Admin Sodium Chloride 500 ml @ 500 mls/hr 1X ONCE IV 11/28/18 20:30 11/28/18 21:29 DC 11/28/18 20:56 Sodium Chloride 1,000 ml @ 60 mls/hr [id number] IV 11/28/18 21:52 11/29/18 21:51 11/29/18 00:22 Ceftriaxone Sodium (Rocephin) 1 gm 1X ONCE IVP 11/28/18 22:00 11/28/18 22:01 DC 11/28/18 22:21 Sodium Chloride 1,000 ml @ 60 mls/hr [id number] IV 11/29/18 11:15 11/29/18 12:31 Ceftriaxone Sodium (Rocephin) 1 gm Q24H IVP 11/29/18 12:00 11/29/18 12:32 Amlodipine Besylate (Norvasc) 5 mg DAILY PO 11/29/18 12:00 11/29/18 12:31 Aspirin (Ecotrin) 81 mg DAILY PO 11/29/18 12:00 11/29/18 12:32 Sertraline HCl (Zoloft) 50 mg DAILY PO 11/29/18 12:00 11/29/18 12:31 Sennosides (Senna) 8.6 mg BID PO 11/29/18 11:45 11/29/18 12:31 ALLERGIES ALLERGIES: Coded Allergies: No Known Drug Allergies (Unverified , 06/02/16) ROS Review of System 14 point ROS conducted with pertinent positives noted above although limited due to dementia. PHYSICAL EXAM General: Alert, Cooperative, No acute distress, Other (oriented to person only.) Heart: No murmurs (2/6 systolic murmur ), Other (SB) Abdomen: Soft, No tenderness Extremities: No edema, Normal pulses Skin: No significant lesion Neuro: Normal speech, Sensation intact Psych/Mental Status: Mood NL, Other (confused) MUSCULOSKELETAL: Osteoarthritic changes both hands VITALS/I&O VITALS/I&O: Vital Signs Date Time Temp Pulse Resp B/P (MAP) Pulse Ox O2 Delivery O2 Flow Rate FiO2 11/29/18 12:31 61 136/58 11/29/18 11:10 98.2 18 100 Room Air 98.2 I & O 11/28/18 11/28/18 11/29/18 15:00 23:00 07:00 Intake Total 500 ml 0 ml Balance 500 ml 0 ml LABS Lab: Laboratory Tests Test 11/28/18 20:00 11/28/18 20:05 11/28/18 20:25 11/29/18 03:50 Stool Occult Blood Negative (NEG) Urine Collection Type Unknown Urine Color Franci Urine Clarity Turbid Urine pH 5.5 Urine Specific [place] 1.025 Urine Protein 100 mg/dL (NEG-TRACE) Urine Glucose (UA) Negative mg/dL (NEG) Urine Ketones (Stick) Trace mg/dL (NEG) Urine Blood Large (NEG) Urine Nitrite Positive (NEG) Urine Bilirubin Small (NEG) Urine Urobilinogen Dipstick 0.2 mg/dL (0.2 mg/dL) Urine Leukocyte Esterase Large (NEG) Urine RBC /HPF (0-2) Urine WBC Tntc /HPF (0-4) Urine Squamous Epithelial Cells Few /LPF Urine Bacteria Many /HPF (0-FEW) Urine Mucus Mod /LPF White Blood Count 6.9 x10^3/uL (4.0-11.0) Red Blood Count 4.35 x10^6/uL (3.50-5.40) Hemoglobin 12.9 g/dL (12.0-15.5) Hematocrit 38.4 % (36.0-47.0) Mean Corpuscular Volume 88 fL (79-100) Mean Corpuscular Hemoglobin 30 pg (25-35) Mean Corpuscular Hemoglobin Concent 34 g/dL (31-37) Red Cell Distribution Width 16.1 % (11.5-14.5) H Platelet Count 242 x10^3/uL (140-400) Neutrophils (%) (Auto) 79 % (31-73) H Lymphocytes (%) (Auto) 14 % (24-48) L Monocytes (%) (Auto) 7 % (0-9) Eosinophils (%) (Auto) 1 % (0-3) Basophils (%) (Auto) 0 % (0-3) Neutrophils # (Auto) 5.4 x10^3/uL (1.8-7.7) Lymphocytes # (Auto) 1.0 x10^3/uL (1.0-4.8) Monocytes # (Auto) 0.5 x10^3/uL (0.0-1.1) Eosinophils # (Auto) 0.0 x10^3/uL (0.0-0.7) Basophils # (Auto) 0.0 x10^3/uL (0.0-0.2) Prothrombin Time 13.1 SEC (11.7-14.0) Prothrombin Time INR 1.0 (0.8-1.1) Sodium Level 142 mmol/L (136-145) Potassium Level 4.3 mmol/L (3.5-5.1) Chloride Level 104 mmol/L (98-107) Carbon Dioxide Level 25 mmol/L (21-32) Anion Gap 13 (6-14) Blood Urea Nitrogen 28 mg/dL (7-20) H Creatinine 1.7 mg/dL (0.6-1.0) H Estimated GFR (Cockcroft-Gault) 34.6 BUN/Creatinine Ratio 16 (6-20) Glucose Level 124 mg/dL (70-99) H Calcium Level 9.3 mg/dL (8.5-10.1) Total Bilirubin 0.7 mg/dL (0.2-1.0) Aspartate Amino Transferase (AST) 41 U/L (15-37) H Alanine Aminotransferase (ALT) 54 U/L (14-59) Alkaline Phosphatase 70 U/L (46-116) Troponin I Quantitative < 0.017 ng/mL (0.000-0.055) < 0.017 ng/mL (0.000-0.055) Total Protein 8.6 g/dL (6.4-8.2) H Albumin 3.7 g/dL (3.4-5.0) Albumin/Globulin Ratio 0.8 (1.0-1.7) L Laboratory Tests 11/28/18 20:25 Laboratory Tests 11/28/18 20:25 ECHOCARDIOGRAM ECHOCARDIOGRAM <Conclusion> The left ventricle is normal size. The left ventricular systolic function is normal and the ejection fraction is within normal range. The Ejection Fraction is 55-60%. There is no significant aortic valvular stenosis. Doppler and Color Flow revealed no significant aortic regurgitation. Doppler and Color Flow revealed trace mitral valve regurgitation. Doppler and Color Flow revealed mild tricuspid regurgitation. The pulmonary artery systolic pressure is estimated at 41 mmHg. DATE: 06/03/16 1738 HEART CATH HEART CATH FINDINGS 1. Hemodynamics: Left ventricular end-diastolic pressure of 17 mmHg. No pullback gradient across the aortic valve. 2. Left ventriculography: Normal left ventricle systolic function with ejection fraction estimated at 60-65%. No significant mitral regurgitation seen. 3. Coronary angiography: a. The left main coronary artery arose from the left sinus of Valsalva, gave rise to the left anterior descending and left circumflex arteries and did not show any significant stenosis. b. The left anterior descending artery showed 30% stenosis in the midsegment. c. The left circumflex artery did not show any significant stenosis. d. The right coronary artery was a large and dominant vessel arising from the right sinus of Valsalva that showed long 20-30% stenosis in the proximal to midsegment. Conclusion 1. No significant coronary artery disease 2. Normal left ventricle systolic function with ejection fraction estimated at 60-65% Recommendations Patient's non-STEMI could be secondary to vasospasm or thrombus that has been lysed. She does not have any lesions that need intervention. Recommend medical therapy. DATE: 06/03/16 1126 ASSESSMENT/PLAN ASSESSMENT/PLAN 1. Syncope 2. Symptomatic sinus bradycardia 3. Hypertension; controlled 4. VENUS 5. Hyperlipidemia 6. Diabetes, II 7. Dementia 8. UTI Recommendations Monitor tele Avoid AV christopher blocking agents. Agree with IVFs Treatment for UTI as per PCP Will plan for PPM insertion Monday secondary to SSS. R/b/a discussed with sister and DPOA, Niya, and she is agreeable to proceed LAKISHA IBRAHIM MD 11/29/18 1809: CARDIAC CONSULT ASSESSMENT/PLAN ASSESSMENT/PLAN Pt. seen and examined. Agree with above TITLE INSPECTOR note. Plan for PPM on monday to allow for UTI tx D/w CJ Winchester APRN Nov 29, 2018 12:51 LAKISHA IBRAHIM MD Nov 29, 2018 18:09
--- NOTE | 2018-11-29 14:26 | HP ---
ADMIT DATE: HISTORY OF PRESENT ILLNESS: This is an 83-year-old -Luxembourger female, who has history of Alzheimer disease, who went to the dentist a couple of days ago to get tooth extraction; however, the body service team member noted that her heart rate was around 30 and 40 on 2 different occasions and so they canceled the surgery and sent her to our office. In the office, her heart rate went up to 48 per minute and she was asymptomatic at that time. I discontinued the Aricept; however, this morning, the patient was noted to be slumped over in the bathroom and she had a syncopal episode. The patient was very confused and unable to provide any information and because of that, the patient was sent to the emergency room. REVIEW OF SYSTEMS: At the present time, the patient is confused. She does not remember any of the events and does not remember if she was dizzy or weak or if she had any chest pain, palpitations, dyspnea, or diaphoresis; unable to do systems review. PAST MEDICAL HISTORY: The patient has a history of Alzheimer disease with behavioral disturbances, new-onset bradycardia as noted earlier, hypertension, and peripheral vascular disease. PAST SURGICAL HISTORY: None. FAMILY HISTORY: Mother had hypertension, sister has diabetes type 2, and another sister has hypertension. SOCIAL HISTORY: No history of smoking, alcoholism, or drug abuse. The patient lives with her sister. ALLERGIES: None known any. MEDICATIONS: Reviewed, please refer to the orders. I had stopped her Aricept either yesterday or the day before. PHYSICAL EXAMINATION: GENERAL: The patient is an elderly -Luxembourger female who is alert, very confused, and not in acute distress. VITAL SIGNS: Temperature 98.4, heart rate is 48-61 per minute. EYES: Pupils are reacting to light. Conjunctivae are pale. Sclerae are muddy. HEENT: Unremarkable. NECK: Supple. JVP is normal. No thyromegaly. Trachea is midline. LUNGS: Decreased breath sounds at bases. CARDIOVASCULAR: S1, S2 regular. ABDOMEN: Soft, nontender, no guarding, no rigidity. Bowel sounds present. EXTREMITIES: No edema. CENTRAL NERVOUS SYSTEM: Quite confused, generalized weakness, no other acute changes. LABORATORY FINDINGS: WBC count 6.9, hemoglobin 12.9; sodium 142, potassium 4.3, BUN 28, creatinine 1.7, glucose 124. Urinalysis: Nitrite positive, bacteria many, and wbcs too numerous to count. IMAGING: Chest x-ray did not show any acute changes. IMPRESSION: 1. Recurrent bradycardia with syncope. 2. Alzheimer disease with behavioral disturbances. 3. Hypertension. 4. Urinary tract infection. 5. Coronary artery disease without angina pectoris. 6. History of chronic kidney disease. 7. Primary osteoarthritis involving multiple joints. 8. Mixed hyperlipidemia. PLAN: I will go ahead and start her on intravenous Rocephin and intravenous fluids; hold Lipitor at this time as previously one time the CPK was elevated; recheck labs in the morning; consult Dr. Vieira for Cardiology evaluation and management; discussed with him. The patient will most likely need a pacemaker. We will stop Lipitor and Aricept. For details, please refer to the orders. Start heparin for deep vein thrombosis prophylaxis. DONNA BAEZA MD DR: MARITZA/li JOB#: [id number] / [id number]
[2018-11-29] MEDS: MAGNESIUM OXIDE 400 MG TABLET PO SCH ×2 (14:32→21:00)
--- NOTE | 2018-11-29 16:13 | NUR ---
SW following pt for dc planning. Chart reviewed and pt lives at home. PT/OT pending, Cardiology following. Will await for PT/OT recommendation to assess skilled needs.
[2018-11-29] MEDS ORDERED: NON FORMULARY ITEM (Melatonin 5 MG) PO SCH (21:00)
[2018-11-29] MEDS ORDERED: ATORVASTATIN CALCIUM 20 MG TABLET PO SCH (21:00)
[2018-11-29] MEDS ORDERED: DONEPEZIL HCL 5 MG TABLET. PO SCH (21:00)
[2018-11-29] MEDS: LACTOBACILLUS RHAMNOSUS GG 1 CAPSULE. PO SCH (21:00)
[2018-11-30] VITALS (7 sets, daily range): BP systolic 102–148; BP diastolic 45–75
[2018-11-30] MEDS: IV NORMAL SALINE 1000ML BAG 1,000 ML IV SCH (04:05)
[2018-11-30] MEDS: amLODIPine BESYLATE 5 MG TABLET PO SCH (09:00)
[2018-11-30] MEDS: ASPIRIN ENTERIC COATED 81 MG TABLET.DR. PO SCH (09:11)
[2018-11-30] MEDS: SENNOSIDES 8.6 MG TABLET PO SCH ×2 (09:11→21:00)
[2018-11-30] MEDS: SERTRALINE 50 MG TABLET. PO SCH (09:11)
[2018-11-30] MEDS: LACTOBACILLUS RHAMNOSUS GG 1 CAPSULE. PO SCH ×2 (09:11→21:00)
[2018-11-30] MEDS: MAGNESIUM OXIDE 400 MG TABLET PO SCH ×3 (09:11→21:00)
[2018-11-30] MEDS: HEPARIN for SUB-Q USE 5,000 UNIT/ML VIAL. SQ SCH ×2 (09:19→21:00)
--- NOTE | 2018-11-30 09:46 | PDOC ---
IM PROGRESS NOTES- Subjective Subjective None. Patient is confused. Objective Vitals/I&O Vital Signs Date Time Temp Pulse Resp B/P (MAP) Pulse Ox O2 Delivery O2 Flow Rate FiO2 11/30/18 09:00 50 102/73 11/30/18 08:00 Room Air 11/30/18 07:48 98.0 18 100 98.0 I & O 11/29/18 11/29/18 11/30/18 14:59 22:59 06:59 Intake Total 120 ml 120 ml Balance 120 ml 120 ml Physical Exam Physical Exam GENERAL: The patient is an elderly -British female who is alert, very confused, and not in acute distress. HEENT: Unremarkable. NECK: Supple. JVP is normal. No thyromegaly. Trachea is midline. LUNGS: Decreased breath sounds at bases. CARDIOVASCULAR: S1, S2 regular. ABDOMEN: Soft, nontender, no guarding, no rigidity. Bowel sounds present. EXTREMITIES: No edema. CENTRAL NERVOUS SYSTEM: Quite confused, generalized weakness, no other acute changes. Meds Current Medications Medications (Trade) Dose Ordered Sig/Jesus Route PRN Reason Start Time Stop Time Status Last Admin Dose Admin Sodium Chloride 1,000 ml @ 60 mls/hr [id number] IV 11/29/18 11:15 11/30/18 04:05 Ceftriaxone Sodium (Rocephin) 1 gm Q24H IVP 11/29/18 12:00 11/29/18 12:32 Amlodipine Besylate (Norvasc) 5 mg DAILY PO 11/29/18 12:00 11/29/18 12:31 Aspirin (Ecotrin) 81 mg DAILY PO 11/29/18 12:00 11/30/18 09:11 Sertraline HCl (Zoloft) 50 mg DAILY PO 11/29/18 12:00 11/30/18 09:11 Magnesium Oxide (Magnesium Oxide) 400 mg TID PO 11/29/18 14:00 11/30/18 09:11 Sennosides (Senna) 8.6 mg BID PO 11/29/18 11:45 11/30/18 09:11 Heparin Sodium (Porcine) (Heparin Sodium) 5,000 unit Q12HR SQ 11/29/18 12:15 11/30/18 09:19 Lactobacillus Rhamnosus (Culturelle) 1 cap BID PO 11/29/18 21:00 11/30/18 09:11 Assessment Assessment 1. Recurrent bradycardia with syncope. 2. Alzheimer disease with behavioral disturbances. 3. Hypertension. 4. Urinary tract infection. 5. Coronary artery disease without angina pectoris. 6. History of chronic kidney disease. 7. Primary osteoarthritis involving multiple joints. 8. Mixed hyperlipidemia. PLAN: I will go ahead and start her on intravenous Rocephin and intravenous fluids; hold Lipitor at this time as previously one time the CPK was elevated; recheck labs in the morning; consult Dr. Vieira for Cardiology evaluation and management; discussed with him. The patient will most likely need a pacemaker. We will stop Lipitor and Aricept. For details, please refer to the orders. Start heparin for deep vein thrombosis prophylaxis. Today's labs are pending. UTI- on IV Rocephin. Chronic kidney disease Bradycardia with syncope- possibly pacemaker on Monday. Condition treatment options extensively discussed with patient's sister Niya on phone including pacemaker placement. Alzheimer's disease- Aricept discontinued due to bradycardia. Recheck labs in a.m. Plan Plan For more details regarding further plans, please refer to the orders. DONNA BAEZA MD Nov 30, 2018 09:46
--- NOTE | 2018-11-30 10:45 | CARD ---
MR#: [id number] Date of Study: 11/30/2018 Ordering Physician: CJ LANE, Referring Physician: DONNA BAEZA Tech: Candace Alston VICTORINA APPROVED REPORT EXAM: Two-dimensional and M-mode echocardiogram with Doppler and color Doppler. Other Information Quality : Fair Technically limited study due to lack of patient compliance due to dementia INDICATION Arrhythmia 2D DIMENSIONS RVDd2.2 (2.9-3.5cm)Left Atrium(2D)3.5 (1.6-4.0cm) IVSd0.8 (0.7-1.1cm)Aortic Root(2D)3.1 (2.0-3.7cm) LVDd4.7 (3.9-5.9cm)LVOT Diameter2.0 (1.8-2.4cm) PWd0.8 (0.7-1.1cm)LVDs2.3 (2.5-4.0cm) FS (%) 30.0 %SV81.8 ml LVEF(%)60.0 (>50%) Mitral Valve MV E Lbtqtonn51.5cm/sMV DECEL TRLX168ia MV A Fstlqwei12.1cm/sE/A Ratio0.8 Tricuspid Valve TR P. Avqnrmtk173pc/sRAP MYYFATOL1boRt TR Peak Gr.24leVuNKXZ55vmPr LEFT VENTRICLE The left ventricle is normal size. There is normal left ventricular wall thickness. The left ventricu lar systolic function is normal and the ejection fraction is within normal range. The Ejection Fracti on is 55-60%. There is normal LV segmental wall motion. Transmitral Doppler flow pattern is Grade I-a bnormal relaxation pattern. RIGHT VENTRICLE The right ventricle is normal size. The right ventricular systolic function is normal. ATRIA The left atrium size is normal. The right atrium size is normal. The interatrial septum is intact wit h no evidence for an atrial septal defect or patent foramen ovale as noted on 2-D or Doppler imaging. AORTIC VALVE The aortic valve is calcified but opens well. Doppler and Color Flow revealed no significant aortic r egurgitation. There is no significant aortic valvular stenosis. MITRAL VALVE The mitral valve is normal in structure and function. There is no evidence of mitral valve prolapse. There is no mitral valve stenosis. Doppler and Color Flow revealed no mitral valve regurgitation note d. TRICUSPID VALVE The tricuspid valve is normal in structure and function. Doppler and Color Flow revealed trace tricus pid regurgitation. The PA pressure was estimated at 26 mmHg. There is no tricuspid valve stenosis. PULMONIC VALVE The pulmonic valve is not well visualized. Doppler and Color Flow revealed no pulmonic valvular regur gitation. There is no pulmonic valvular stenosis. GREAT VESSELS The aortic root is normal in size. The ascending aorta is normal in size. The IVC was not visualized. PERICARDIAL EFFUSION There is no evidence of significant pericardial effusion. Critical Notification Critical Value: No <Conclusion> The left ventricular systolic function is normal and the ejection fraction is within normal range. Th e Ejection Fraction is 55-60%. There is normal LV segmental wall motion. Signed by : Edis Vieira, Electronically Approved : 11/30/2018 10:44:42
--- NOTE | 2018-11-30 12:31 | NUR ---
SW following pt. According to OT, pt is able to go home with 24hour care. Pt does have care givers at home. No other needs noted at this time.
[2018-11-30 13:38] LABS: BASO % 0 % (0-3); EOS # 0.1 x10^3/uL (0.0-0.7); EOS % 1 % (0-3); HEMATOCRIT 33.4 % (36.0-47.0); HEMOGLOBIN 11.2 g/dL (12.0-15.5); LYMPH % 20 % (24-48); MEAN CORPUSCULAR HEMOGLOBIN 30 pg (25-35); MEAN CORPUSCULAR HGB CONC 34 g/dL (31-37); MEAN CORPUSCULAR VOLUME 89 fL (79-100); MONO # 0.6 x10^3/uL (0.0-1.1); MONO % 12 % (0-9); NEUT # 3.3 x10^3/uL (1.8-7.7); NEUT % 67 % (31-73); PLATELET COUNT 197 x10^3/uL (140-400); RED BLOOD COUNT 3.76 x10^6/uL (3.50-5.40); RED CELL DISTRIBUTION WIDTH 15.7 % (11.5-14.5); WHITE BLOOD COUNT 4.9 x10^3/uL (4.0-11.0)
[2018-11-30 13:49] LABS: CALCIUM 8.4 mg/dL (8.5-10.1); CREATININE 1.3 mg/dL (0.6-1.0); GFR 47.1; POTASSIUM 3.7 mmol/L (3.5-5.1)
[2018-11-30] MEDS: cefTRIAXone IV Push 1 GM VIAL. IVP SCH (14:04)
[2018-12-01 03:00] VITALS: BP 137/102
[2018-12-01] MEDS: IV NORMAL SALINE 1000ML BAG 1,000 ML IV SCH ×2 (05:33→13:15)
[2018-12-01 07:00] VITALS: BP 141/60
[2018-12-01] MEDS: ASPIRIN ENTERIC COATED 81 MG TABLET.DR. PO SCH ×2 (09:00→09:10)
[2018-12-01 09:02] LABS: BASO % 0 % (0-3); EOS # 0.1 x10^3/uL (0.0-0.7); EOS % 1 % (0-3); HEMATOCRIT 33.7 % (36.0-47.0); HEMOGLOBIN 11.3 g/dL (12.0-15.5); LYMPH # 1.1 x10^3/uL (1.0-4.8); LYMPH % 19 % (24-48); MEAN CORPUSCULAR HEMOGLOBIN 30 pg (25-35); MEAN CORPUSCULAR HGB CONC 34 g/dL (31-37); MEAN CORPUSCULAR VOLUME 88 fL (79-100); MONO # 0.5 x10^3/uL (0.0-1.1); MONO % 9 % (0-9); NEUT # 3.9 x10^3/uL (1.8-7.7); NEUT % 71 % (31-73); PLATELET COUNT 197 x10^3/uL (140-400); RED BLOOD COUNT 3.82 x10^6/uL (3.50-5.40); RED CELL DISTRIBUTION WIDTH 15.4 % (11.5-14.5); WHITE BLOOD COUNT 5.6 x10^3/uL (4.0-11.0)
[2018-12-01] MEDS: SENNOSIDES 8.6 MG TABLET PO SCH ×2 (09:10→21:00)
[2018-12-01] MEDS: MAGNESIUM OXIDE 400 MG TABLET PO SCH ×3 (09:10→21:00)
[2018-12-01] MEDS: amLODIPine BESYLATE 5 MG TABLET PO SCH (09:10)
[2018-12-01] MEDS: SERTRALINE 50 MG TABLET. PO SCH (09:11)
[2018-12-01] MEDS: LACTOBACILLUS RHAMNOSUS GG 1 CAPSULE. PO SCH ×2 (09:11→21:00)
[2018-12-01] MEDS: HEPARIN for SUB-Q USE 5,000 UNIT/ML VIAL. SQ SCH ×2 (09:13→21:37)
[2018-12-01 09:14] LABS: CALCIUM 8.5 mg/dL (8.5-10.1); CREATININE 1.2 mg/dL (0.6-1.0); GFR 51.7; POTASSIUM 3.6 mmol/L (3.5-5.1)
--- NOTE | 2018-12-01 10:45 | PDOC ---
PROGRESS NOTES Subjective Subjective no complaints Objective Objective Vital Signs Date Time Temp Pulse Resp B/P (MAP) Pulse Ox O2 Delivery O2 Flow Rate FiO2 12/01/18 09:10 54 141/60 12/01/18 08:00 Room Air 12/01/18 07:00 98.0 18 99 98.0 Intake and Output 12/01/18 06:59 Intake Total 960 ml Balance 960 ml Intake Oral 360 ml IV Total 600 ml # Voids 3 Physical Exam Abdomen: Soft, No tenderness Heart: No murmurs (2/6 systolic murmur ), Other (SB) Extremities: No edema, Normal pulses General: Alert, Cooperative, No acute distress, Other (oriented to person only.) MUSCULOSKELETAL: Osteoarthritic changes both hands Neuro: Normal speech, Sensation intact Psych/Mental Status: Mood NL, Other (confused) Skin: No significant lesion Diagnosis Problem List Problems Medical Problems: (1) Syncope Status: Acute (2) UTI (urinary tract infection) Status: Acute Assessment Assessment 1. Recurrent bradycardia with syncope. 2. Alzheimer disease with behavioral disturbances. 3. Hypertension. 4. Urinary tract infection. 5. Coronary artery disease without angina pectoris. 6. History of chronic kidney disease. 7. Primary osteoarthritis involving multiple joints. 8. Mixed hyperlipidemia. PLAN: urine c/s mixed thang 100,000.continue iv rocephin iv fluids for today labs ok ,pt/ot ?pacemaker to be placed Monday for bradycardia and syncope. Plan Plan of Care Problems Medical Problems: (1) Syncope Status: Acute (2) UTI (urinary tract infection) Status: Acute Comment Review of Relevant I have reviewed the following items ludin (where applicable) has been applied. Labs Laboratory Tests Test 11/30/18 13:15 12/01/18 08:33 White Blood Count 4.9 x10^3/uL (4.0-11.0) 5.6 x10^3/uL (4.0-11.0) Red Blood Count 3.76 x10^6/uL (3.50-5.40) 3.82 x10^6/uL (3.50-5.40) Hemoglobin 11.2 g/dL (12.0-15.5) 11.3 g/dL (12.0-15.5) Hematocrit 33.4 % (36.0-47.0) 33.7 % (36.0-47.0) Mean Corpuscular Volume 89 fL (79-100) 88 fL (79-100) Mean Corpuscular Hemoglobin 30 pg (25-35) 30 pg (25-35) Mean Corpuscular Hemoglobin Concent 34 g/dL (31-37) 34 g/dL (31-37) Red Cell Distribution Width 15.7 % (11.5-14.5) 15.4 % (11.5-14.5) Platelet Count 197 x10^3/uL (140-400) 197 x10^3/uL (140-400) Neutrophils (%) (Auto) 67 % (31-73) 71 % (31-73) Lymphocytes (%) (Auto) 20 % (24-48) 19 % (24-48) Monocytes (%) (Auto) 12 % (0-9) 9 % (0-9) Eosinophils (%) (Auto) 1 % (0-3) 1 % (0-3) Basophils (%) (Auto) 0 % (0-3) 0 % (0-3) Neutrophils # (Auto) 3.3 x10^3/uL (1.8-7.7) 3.9 x10^3/uL (1.8-7.7) Lymphocytes # (Auto) 1.0 x10^3/uL (1.0-4.8) 1.1 x10^3/uL (1.0-4.8) Monocytes # (Auto) 0.6 x10^3/uL (0.0-1.1) 0.5 x10^3/uL (0.0-1.1) Eosinophils # (Auto) 0.1 x10^3/uL (0.0-0.7) 0.1 x10^3/uL (0.0-0.7) Basophils # (Auto) 0.0 x10^3/uL (0.0-0.2) 0.0 x10^3/uL (0.0-0.2) Sodium Level 144 mmol/L (136-145) 142 mmol/L (136-145) Potassium Level 3.7 mmol/L (3.5-5.1) 3.6 mmol/L (3.5-5.1) Chloride Level 110 mmol/L (98-107) 108 mmol/L (98-107) Carbon Dioxide Level 25 mmol/L (21-32) 23 mmol/L (21-32) Anion Gap 9 (6-14) 11 (6-14) Blood Urea Nitrogen 18 mg/dL (7-20) 12 mg/dL (7-20) Creatinine 1.3 mg/dL (0.6-1.0) 1.2 mg/dL (0.6-1.0) Estimated GFR (Cockcroft-Gault) 47.1 51.7 Glucose Level 90 mg/dL (70-99) 90 mg/dL (70-99) Calcium Level 8.4 mg/dL (8.5-10.1) 8.5 mg/dL (8.5-10.1) Magnesium Level 1.8 mg/dL (1.8-2.4) Thyroid Stimulating Hormone (TSH) 2.622 uIU/mL (0.358-3.74) Microbiology 11/28/18 Urine Culture - Final, Complete 11/28/18 Urine Culture Result 1 (NELLY) - Final, Complete Vitals/I & O Vital Sign - Last 24 Hours 11/30/18 11/30/18 11/30/18 11/30/18 11:29 15:37 19:30 19:45 Temp 97.8 98.0 98.6 98.6 97.8 98.0 98.6 98.6 Pulse 52 54 57 57 Resp 18 18 18 18 B/P (MAP) 115/64 (81) 141/60 (87) 148/54 (85) 148/54 (85) Pulse Ox 98 98 99 99 O2 Delivery Room Air Room Air Room Air Room Air 11/30/18 12/01/18 12/01/18 12/01/18 23:00 03:00 07:00 08:00 Temp 98.4 98.1 98.0 98.4 98.1 98.0 Pulse 54 52 54 Resp 18 18 18 B/P (MAP) 102/45 (64) 137/102 (114) 141/60 (87) Pulse Ox 96 95 99 O2 Delivery Room Air Room Air Room Air Room Air 12/01/18 09:10 Pulse 54 B/P (MAP) 141/60 Intake and Output 8/2/19 8/2/19 8/3/19 14:59 22:59 06:59 Intake Total 240 ml 120 ml 600 ml Balance 240 ml 120 ml 600 ml AIMEE CASTRO MD Dec 01, 2018 10:45
[2018-12-01 11:00] VITALS: BP 134/61
[2018-12-01] MEDS: cefTRIAXone IV Push 1 GM VIAL. IVP SCH (12:30)
[2018-12-01 15:00] VITALS: BP 137/68
[2018-12-01 19:30] VITALS: BP 178/58
[2018-12-01 23:40] VITALS: BP 170/68
[2018-12-02] MEDS: IV NORMAL SALINE 1000ML BAG 1,000 ML IV SCH
[2018-12-02 03:44] VITALS: BP 128/59
[2018-12-02 07:00] VITALS: BP 147/58
[2018-12-02] MEDS: amLODIPine BESYLATE 5 MG TABLET PO SCH (09:39)
[2018-12-02] MEDS: LACTOBACILLUS RHAMNOSUS GG 1 CAPSULE. PO SCH ×2 (09:39→20:52)
[2018-12-02] MEDS: ASPIRIN CHEWABLE 81 MG TABLET. PO SCH (09:39)
[2018-12-02] MEDS: MAGNESIUM OXIDE 400 MG TABLET PO SCH ×3 (09:39→20:52)
[2018-12-02] MEDS: SENNOSIDES 8.6 MG TABLET PO SCH ×2 (09:39→20:52)
[2018-12-02] MEDS: HEPARIN for SUB-Q USE 5,000 UNIT/ML VIAL. SQ SCH (09:40)
[2018-12-02] MEDS: SERTRALINE 50 MG TABLET. PO SCH (09:40)
--- NOTE | 2018-12-02 10:47 | PDOC ---
PROGRESS NOTES Subjective Subjective no new problems Objective Objective Vital Signs Date Time Temp Pulse Resp B/P (MAP) Pulse Ox O2 Delivery O2 Flow Rate FiO2 12/02/18 09:39 53 147/58 12/02/18 08:00 Room Air 12/02/18 07:00 98.0 18 98 98.0 Intake and Output 12/02/18 07:00 Intake Total 1550 ml Balance 1550 ml Intake Oral 550 ml IV Total 1000 ml # Voids 10 # Bowel Movements 1 Physical Exam Abdomen: Soft, No tenderness Heart: No murmurs (2/6 systolic murmur ), Other (SB) Extremities: No edema, Normal pulses General: Alert, Cooperative, No acute distress, Other (oriented to person only.) MUSCULOSKELETAL: Osteoarthritic changes both hands Neuro: Normal speech, Sensation intact Psych/Mental Status: Mood NL, Other (confused due to dementia) Skin: No significant lesion Diagnosis Problem List Problems Medical Problems: (1) Syncope Status: Acute (2) UTI (urinary tract infection) Status: Acute Assessment Assessment 1. Recurrent bradycardia with syncope. 2. Alzheimer disease with behavioral disturbances. 3. Hypertension. 4. Urinary tract infection. 5. Coronary artery disease without angina pectoris. 6. History of chronic kidney disease. 7. Primary osteoarthritis involving multiple joints. 8. Mixed hyperlipidemia. PLAN: spoke with RN,hold heparin for procedure for tomorrow urine c/s mixed thang 100,000.d/c iv Rocephin d/c iv fluids . labs ok , pt/ot ?pacemaker to be placed Monday for bradycardia and syncope. Plan Plan of Care Problems Medical Problems: (1) Syncope Status: Acute (2) UTI (urinary tract infection) Status: Acute Comment Review of Relevant I have reviewed the following items ludin (where applicable) has been applied. Labs Microbiology 11/28/18 Urine Culture - Final, Complete 11/28/18 Urine Culture Result 1 (NELLY) - Final, Complete Medications Current Medications Aspirin (Children'S Aspirin) 81 mg [id number] PO Last administered on 12/02/18at 09:39; Start 12/02/18 at 09:00 Vitals/I & O Vital Sign - Last 24 Hours 12/01/18 12/01/18 12/01/18 12/01/18 11:00 15:00 19:30 20:00 Temp 98.0 98.0 98.5 98.0 98.0 98.5 Pulse 57 55 63 Resp 18 18 18 B/P (MAP) 134/61 (85) 137/68 (91) 178/58 (98) Pulse Ox 99 99 98 O2 Delivery Room Air Room Air Room Air Room Air 12/01/18 12/02/18 12/02/18 12/02/18 23:40 03:44 07:00 08:00 Temp 98.0 98.3 98.0 98.0 98.3 98.0 Pulse 67 70 53 Resp 18 B/P (MAP) 170/68 (102) 128/59 (82) 147/58 (87) Pulse Ox 95 98 98 O2 Delivery Room Air Room Air Room Air Room Air 12/02/18 09:39 Pulse 53 B/P (MAP) 147/58 Intake and Output 12/01/18 12/01/18 12/02/18 15:00 23:00 07:00 Intake Total 300 ml 250 ml 1000 ml Balance 300 ml 250 ml 1000 ml AIMEE CASTRO MD Dec 02, 2018 10:47
[2018-12-02 11:00] VITALS: BP 127/67
[2018-12-02 14:55] VITALS: BP 138/68
[2018-12-02 19:15] VITALS: BP 145/59
[2018-12-02 23:30] VITALS: BP 133/89
[2018-12-03] VITALS (10 sets, daily range): BP systolic 117–185; BP diastolic 60–89
[2018-12-03] MEDS: ASPIRIN CHEWABLE 81 MG TABLET. PO SCH (08:00)
[2018-12-03] MEDS: MAGNESIUM OXIDE 400 MG TABLET PO SCH ×3 (09:00→20:53)
[2018-12-03] MEDS: amLODIPine BESYLATE 5 MG TABLET PO SCH (09:00)
[2018-12-03] MEDS: SENNOSIDES 8.6 MG TABLET PO SCH ×2 (09:00→20:53)
[2018-12-03] MEDS: LACTOBACILLUS RHAMNOSUS GG 1 CAPSULE. PO SCH ×2 (09:00→20:53)
[2018-12-03] MEDS: SERTRALINE 50 MG TABLET. PO SCH (09:00)
--- NOTE | 2018-12-03 10:59 | PDOC ---
IM PROGRESS NOTES- Subjective Subjective None. Patient is confused. Objective Vitals/I&O Vital Signs Date Time Temp Pulse Resp B/P (MAP) Pulse Ox O2 Delivery O2 Flow Rate FiO2 12/03/18 08:00 Room Air 12/03/18 07:20 98.4 55 16 143/60 (87) 98 98.4 I & O 0 12/02/18 12/02/18 12/03/18 15:00 23:00 07:00 Intake Total 400 ml 250 ml 0 ml Balance 400 ml 250 ml 0 ml Physical Exam Physical Exam GENERAL: The patient is an elderly -Indian female who is alert, very confused, and not in acute distress. HEENT: Unremarkable. NECK: Supple. JVP is normal. No thyromegaly. Trachea is midline. LUNGS: Decreased breath sounds at bases. CARDIOVASCULAR: S1, S2 regular. ABDOMEN: Soft, nontender, no guarding, no rigidity. Bowel sounds present. EXTREMITIES: No edema. CENTRAL NERVOUS SYSTEM: Quite confused, generalized weakness, no other acute changes. Assessment Assessment 1. Recurrent bradycardia with syncope. 2. Alzheimer disease with behavioral disturbances. 3. Hypertension. 4. Urinary tract infection. 5. Coronary artery disease without angina pectoris. 6. History of chronic kidney disease. 7. Primary osteoarthritis involving multiple joints. 8. Mixed hyperlipidemia. PLAN: UTI- urine c/s mixed thang 100,000.d/c iv Rocephin d/c iv fluids .pt/ot Sick sinus syndrome -pacemaker to be placed today for bradycardia and syncope. D/w sister,DPOA. Dementia- Confused- Requires Mittens for safety. Plan Plan For more details regarding further plans, please refer to the orders. DONNA BAEZA MD Dec 03, 2018 10:59
[2018-12-03] MEDS ORDERED: PROPOFOL 60 ML IV ONE (11:26)
[2018-12-03] MEDS ORDERED: LIDOCAINE 2% PF 5 ML VIAL. ONE (11:27)
[2018-12-03] MEDS ORDERED: MIDAZOLAM HCL/PF 2 MG/2 ML VIAL. ONE (11:30)
[2018-12-03] MEDS ORDERED: LIDOCAINE 2%/EPI 1:100,000 20 ML VIAL. ONE (11:30)
[2018-12-03] MEDS ORDERED: KETAMINE HCL IN NACL, ISO-OSM 50 MG/5 ML SYRINGE ONE (11:31)
[2018-12-03] MEDS ORDERED: ceFAZolin SODIUM 1 GM in IV DEXTROSE 5% 50 ML IV ONE ×2 (12:00→18:00)
[2018-12-03] MEDS ORDERED: BACITRACIN 50,000 UNIT in IV NORMAL SALINE 250ML 250 ML IRR ONE (12:00)
--- NOTE | 2018-12-03 12:01 | PDOC ---
Provider Note Provider Note Patient remains confused and combative. I discussed again the risk/benefits/alternatives with the patient's DPOA (her sister). We talked about risk of lead displacement if the patient does not follow arm restrictions, risk of infection, reoperation and bleeding. The pt's DPOA understands and agrees to proceed. Given profound bradycardia and syncope, she would definitely benefit from pacemaker. LAKISHA IBRAHIM MD Dec 03, 2018 12:01
--- NOTE | 2018-12-03 12:01 | PDOC ---
MODERATE SEDATION ASSESSMENT RISKS/ALTERNATIVES Risks/Alternatives Risks and alternatives of this type of sedation and procedure discussed with: RISK/ALTERNATIVES: Sig. Other H & P ON CHART H & P H & P on chart and reviewed for co-morbid conditions and appropriate labs. H&P ON CHART: Yes STATUS PREG STATUS ASSESSED: N/A MEDS/ALLERGIES REVIEWED Meds/Allergies Reviewed Medications and Allergies including time and route of recently administered narcotics and sedatives. MEDS/ALLERGIES REVIEWED: Yes ASA RATING ASA RATING: III AIRWAY ASSESSMENT Airway Assessment Airway patency, oral function limitations, presence of caps, crowns, dentures, partials, and ability to extend neck assessed. AIRWAY ASSESSMENT: Yes MALLAMPATI SCORE MALLAMPATI SCORE: III PRE-SEDATION ASSESSMENT PRE-SEDATION ASSESSMENT: Yes LAKISHA IBRAHIM MD Dec 03, 2018 12:01
[2018-12-03] MEDS ORDERED: LIDOCAINE 2%/EPI 1:100,000 20 ML VIAL. IJ ONE (12:15)
--- NOTE | 2018-12-03 13:16 | NUR ---
Pt received MAC for pacemaker placement. Pt remains drowsy post procedure. Will transport to PACU for further monitoring. Pt tolerated procedure well.
--- NOTE | 2018-12-03 14:04 | CARD ---
MR#: [id number] Date of Study: 12/03/2018 Ordering Physician: EDIS IBRAHIM, Referring Physician: DONNA BAEZA, Tech: APPROVED REPORT HISTORY The Patient is a 83 year-old female with a history of SSS and syncope Fluoro time: 4.8 minutes Dose: 22 Gycm2 Sedation given by anesthesia PROCEDURES Insertion Dual Chamber Pacemaker 30 mL of 2% lidocaine was infiltrated into the skin and subcutaneous tissues for local anesthesia. A n incision was made over the left infraclavicular fossa and using blunt dissection and cautery a pock et was created. Venous access was obtained in the left subclavian vein and 9 and 7 Maldivian sheaths we re inserted. Subsequently, a Biotronik bipolar active fixation right ventricular lead model Setrox S 53 cm, SN [id number] was advanced under fluoroscopic guidance and the tip was positioned in the right ventricular ap ex. Following this, a Biotronik bipolar active fixation right atrial lead model Solia S 45, [place] [id number] was placed in the right atrial appendage under fluoroscopy guidance. The leads were secured into place and were attached to a Biotronik dual-chamber permanent pacemaker generator model Etrinsa 8 DR -T, SN [id number]. This was placed in the pocket that was subsequently closed in 3 layers. Hemostasis w as secured. At the end of procedure, the right ventricular lead showed sensing amplitude of 8.2 mV, impedance of 741 ohms and a threshold of 0.9volts at 0.4ms. The right atrial lead showed a sensing amplitude of 1 .3 millivolts, impedance of 439 ohms and a threshold of 1.6 volts. Patient tolerated the procedure we ll. There were no immediate complications. DDD/CLS 60-120 CONCLUSION 1. Successful placement of a Biotronik Dual Chamber Pacemaker for SSS and Syncope. Signed by : Edis Ibrahim, Electronically Approved : 12/03/2018 14:03:50
--- NOTE | 2018-12-03 14:25 | NUR ---
1330 Transported from OR to [facility] ([facility] status) w recovery nurse at bedside x 30 min. Patient initially awake w transfer to ICU bed then somnolent. Sling in place ,HOB 20 .Monitor 100% func pacer. Diaper in place for reported incontinence Addendum: 12/03/18 at 1752 by Leana Amaya RN Reported as "obstinate" at times. Made up mind and will not take 1400 po mag.
[2018-12-03] MEDS ORDERED: NO ANTICOAGULANT THERAPY. MC PRN (18:00)
[2018-12-03] MEDS ORDERED: ceFAZolin SODIUM IV Push 1 GM VIAL. IVP ONE (18:15)
--- NOTE | 2018-12-03 18:42 | NUR ---
Trans report : Periods of awareness but confused. Co-operative at this time. Transferred per bed to CVC 254. Dyer cream to sore groin area and danny area for protection w persistent incont status
[2018-12-04 03:00] VITALS: BP 145/58
[2018-12-04 07:00] VITALS: BP 144/71
[2018-12-04 07:52] LABS: CALCIUM 8.9 mg/dL (8.5-10.1); CREATININE 1.2 mg/dL (0.6-1.0); GFR 51.7; POTASSIUM 3.7 mmol/L (3.5-5.1)
[2018-12-04 08:08] LABS: BASO % 0 % (0-3); EOS # 0.1 x10^3/uL (0.0-0.7); EOS % 1 % (0-3); HEMOGLOBIN 11.4 g/dL (12.0-15.5); LYMPH # 1.2 x10^3/uL (1.0-4.8); LYMPH % 20 % (24-48); MEAN CORPUSCULAR HEMOGLOBIN 29 pg (25-35); MEAN CORPUSCULAR HGB CONC 33 g/dL (31-37); MEAN CORPUSCULAR VOLUME 87 fL (79-100); MONO # 0.5 x10^3/uL (0.0-1.1); MONO % 9 % (0-9); NEUT # 4.3 x10^3/uL (1.8-7.7); NEUT % 70 % (31-73); PLATELET COUNT 200 x10^3/uL (140-400); RED CELL DISTRIBUTION WIDTH 15.5 % (11.5-14.5); WHITE BLOOD COUNT 6.1 x10^3/uL (4.0-11.0)
[2018-12-04] MEDS: ASPIRIN CHEWABLE 81 MG TABLET. PO SCH (08:27)
[2018-12-04] MEDS: MAGNESIUM OXIDE 400 MG TABLET PO SCH ×2 (08:28→15:59)
[2018-12-04] MEDS: LACTOBACILLUS RHAMNOSUS GG 1 CAPSULE. PO SCH (08:28)
[2018-12-04] MEDS: SERTRALINE 50 MG TABLET. PO SCH (08:29)
[2018-12-04] MEDS: SENNOSIDES 8.6 MG TABLET PO SCH (08:29)
[2018-12-04] MEDS: amLODIPine BESYLATE 5 MG TABLET PO SCH (08:30)
--- NOTE | 2018-12-04 10:05 | PDOC ---
PROGRESS NOTES Subjective Subjective confused Objective Objective Vital Signs Date Time Temp Pulse Resp B/P (MAP) Pulse Ox O2 Delivery O2 Flow Rate FiO2 12/04/18 08:30 68 144/71 12/04/18 07:00 98.5 18 95 Room Air 98.5 12/03/18 20:00 2.0 Intake and Output 12/04/18 07:00 Intake Total 270 ml Balance 270 ml Intake Oral 270 ml # Voids 4 Physical Exam Abdomen: Soft, No tenderness Heart: No murmurs (2/6 systolic murmur ), Other (SB) Extremities: No edema, Normal pulses General: Alert, Cooperative, No acute distress, Other (oriented to person only.) MUSCULOSKELETAL: Osteoarthritic changes both hands Neuro: Normal speech, Sensation intact Psych/Mental Status: Mood NL, Other (confused due to dementia) Skin: No significant lesion COMMENT pacemaker placed ,dressing present Diagnosis Problem List Problems Medical Problems: (1) Syncope Status: Acute (2) UTI (urinary tract infection) Status: Acute Assessment Assessment 1. Recurrent bradycardia with syncope. 2. Alzheimer disease with behavioral disturbances. 3. Hypertension. 4. Urinary tract infection. 5. Coronary artery disease without angina pectoris. 6. History of chronic kidney disease. 7. Primary osteoarthritis involving multiple joints. 8. Mixed hyperlipidemia. PLAN: Successful placement of a Biotronik Dual Chamber Pacemaker for SSS and Syncope on 12/03/2018 SNU screen. labs ok spoke with RN Plan Plan of Care Problems Medical Problems: (1) Syncope Status: Acute (2) UTI (urinary tract infection) Status: Acute Comment Review of Relevant I have reviewed the following items ludin (where applicable) has been applied. Labs Laboratory Tests Test 12/04/18 04:15 White Blood Count 6.1 x10^3/uL (4.0-11.0) Red Blood Count 3.90 x10^6/uL (3.50-5.40) Hemoglobin 11.4 g/dL (12.0-15.5) Hematocrit 34.0 % (36.0-47.0) Mean Corpuscular Volume 87 fL (79-100) Mean Corpuscular Hemoglobin 29 pg (25-35) Mean Corpuscular Hemoglobin Concent 33 g/dL (31-37) Red Cell Distribution Width 15.5 % (11.5-14.5) Platelet Count 200 x10^3/uL (140-400) Neutrophils (%) (Auto) 70 % (31-73) Lymphocytes (%) (Auto) 20 % (24-48) Monocytes (%) (Auto) 9 % (0-9) Eosinophils (%) (Auto) 1 % (0-3) Basophils (%) (Auto) 0 % (0-3) Neutrophils # (Auto) 4.3 x10^3/uL (1.8-7.7) Lymphocytes # (Auto) 1.2 x10^3/uL (1.0-4.8) Monocytes # (Auto) 0.5 x10^3/uL (0.0-1.1) Eosinophils # (Auto) 0.1 x10^3/uL (0.0-0.7) Basophils # (Auto) 0.0 x10^3/uL (0.0-0.2) Sodium Level 142 mmol/L (136-145) Potassium Level 3.7 mmol/L (3.5-5.1) Chloride Level 106 mmol/L (98-107) Carbon Dioxide Level 26 mmol/L (21-32) Anion Gap 10 (6-14) Blood Urea Nitrogen 9 mg/dL (7-20) Creatinine 1.2 mg/dL (0.6-1.0) Estimated GFR (Cockcroft-Gault) 51.7 Glucose Level 90 mg/dL (70-99) Calcium Level 8.9 mg/dL (8.5-10.1) Microbiology 11/28/18 Urine Culture - Final, Complete 11/28/18 Urine Culture Result 1 (NELLY) - Final, Complete Medications Current Medications Bacitracin 85014 unit/Sodium Chloride 250 ml @ 250 mls/hr 1X ONCE IRR Last administered on 12/03/18at 12:00; Start 12/03/18 at 12:00; Stop 12/03/18 at 12:59; Status DC Cefazolin Sodium 50 ml @ 100 mls/hr 1X ONCE IV Last administered on 12/03/18at 12:12; Start 12/03/18 at 12:15; Stop 12/03/18 at 12:49; Status DC Cefazolin Sodium 50 ml @ As Directed STK-MED ONCE IV ; Start 12/03/18 at 12:00; Stop 12/03/18 at 12:01; Status DC Cefazolin Sodium (Ancef) 1 gm 1X ONCE IVP Last administered on 12/03/18at 18:15; Start 12/03/18 at 18:15; Stop 12/03/18 at 18:16; Status DC Cefazolin Sodium 1 gm/Dextrose 50 ml @ 100 mls/hr 1X ONCE IV Last administered on 12/03/18at 12:00; Start 12/03/18 at 12:00; Stop 12/03/18 at 12:29; Status DC Cefazolin Sodium 1 gm/Dextrose 50 ml @ 100 mls/hr 1X ONCE IV ; Start 12/03/18 at 18:00; Stop 12/03/18 at 18:29; Status Cancel Info (No Anticoagulant Therapy) 1 ea CONT PRN PRN MC PER PROTOCOL; Start 12/03/18 at 18:00 Ketamine HCl (Ketamine) 50 mg STK-MED ONCE .ROUTE ; Start 12/03/18 at 11:31; Stop 12/03/18 at 11:32; Status Cancel Lidocaine HCl (Lidocaine Pf 2% Vial) 5 ml STK-MED ONCE .ROUTE ; Start 12/03/18 at 11:27; Stop 12/03/18 at 11:28; Status DC Lidocaine/ Epinephrine (LIDOCAINE 2%-EPI 1:100,000 multi-dose) 20 ml STK-MED ONCE .ROUTE ; Start 12/03/18 at 11:30; Stop 12/03/18 at 11:31; Status DC Lidocaine/ Epinephrine (LIDOCAINE 2%-EPI 1:100,000 multi-dose) 40 ml 1X ONCE IJ Last administered on 12/03/18at 12:15; Start 12/03/18 at 12:15; Stop 12/03/18 at 12:16; Status DC Midazolam HCl (Versed) 2 mg STK-MED ONCE .ROUTE ; Start 12/03/18 at 11:30; Stop 12/03/18 at 11:31; Status DC Propofol 60 ml @ As Directed STK-MED ONCE IV ; Start 12/03/18 at 11:26; Stop 12/03/18 at 11:27; Status DC Vitals/I & O Vital Sign - Last 24 Hours 12/03/18 12/03/18 12/03/18 12/03/18 11:52 13:12 13:28 13:28 Temp 97.8 97.5 97.8 97.5 Pulse 51 98 73 Resp 18 16 16 B/P (MAP) 117/61 (79) 136/55 Pulse Ox 100 100 100 O2 Delivery Room Air Nasal Cannula Nasal Cannula Nasal Cannula O2 Flow Rate 3.0 2 2 12/03/18 12/03/18 12/03/18 12/03/18 13:43 15:00 16:00 17:00 Temp 97.5 98.5 97.5 98.5 Pulse 64 64 66 66 Resp 16 B/P (MAP) 151/65 137/74 (95) 154/75 (101) 164/75 (104) Pulse Ox 100 100 100 100 O2 Delivery Nasal Cannula Room Air Room Air Room Air O2 Flow Rate 2 12/03/18 12/03/18 12/03/18 12/03/18 18:28 19:25 20:00 22:50 Temp 98.4 98.2 98.1 98.4 98.2 98.1 Pulse 63 62 Resp 18 20 18 B/P (MAP) 165/89 (114) 185/87 (119) 163/64 (97) Pulse Ox 95 96 97 O2 Delivery Room Air Room Air Nasal Cannula Room Air O2 Flow Rate 2.0 12/04/18 12/04/18 12/04/18 03:00 07:00 08:30 Temp 98.8 98.5 98.8 98.5 Pulse 69 63 68 Resp 18 18 B/P (MAP) 145/58 (87) 144/71 (95) 144/71 Pulse Ox 96 95 O2 Delivery Room Air Room Air Intake and Output 12/03/18 12/03/18 12/04/18 15:00 23:00 07:00 Intake Total 0 ml 270 ml Balance 0 ml 270 ml AIMEE CASTRO MD Dec 04, 2018 10:05
--- NOTE | 2018-12-04 10:53 | RAD ---
PORTABLE CHEST 1V Clinical Indication: Post pacemaker. Comparison: AP chest November 28, 2018. Findings: There is new left chest dual-chamber pacer. Atherosclerotic thoracic aorta. Cardiac size is normal. Stable moderate elevation of right hemidiaphragm. Discoid atelectasis in the right lung base. Stable right lung calcified granuloma. Left lung is clear. There is no pneumothorax. No pleural effusion is appreciated. No acute bone abnormality. IMPRESSION: Left chest dual-chamber pacer. No pneumothorax. Electronically signed by: Yusef Navarrete MD (12/04/2018 10:50 AM) [id number]
[2018-12-04 10:58] VITALS: BP 137/58
--- NOTE | 2018-12-04 11:55 | NUR ---
SS following up with discharge planning. Pt's family reporting that pt will return to home with home healthcare at discharge. PT recommended 24 hour care. Pt's family reporting that they provide 24 hour care at home. Physician notified.
--- NOTE | 2018-12-04 13:32 | NUR ---
PT HAS HOME HEALTH THROUGH [facility]. DORINDA IS THE CAREGIVER. [phone] AND DATA PROCESSING SYSTEMS CONSULTANT IS YAMILA GONGORA.
--- NOTE | 2018-12-04 14:06 | SNU/HH DC ---
DISCHARGE WITH HOME HEALTH DISCHARGE INFORMATION: Discharge Date: Dec 04, 2018 Final Diagnosis: Problems Medical Problems: (1) Syncope Status: Acute (2) UTI (urinary tract infection) Status: Acute Condition on Discharge: Stable CODE STATUS: Code Status: Full HOME HEALTH: Face to Face: I certify this patient is under my care and that I, or a nurse practitioner or physician's acute care certified nursing assistant working with me, had a face to face encounter that meets the physician face to face encounter requirements with this patient on [12/04/18]. Medical Complications: Other (syncope,had pacemake placed) RN For Eval/Treatment: Yes Physical Therapy For: Evalulation/Treatment Occupational Therapy For: Evaluation/Treatment Pt Meets Homebound Status: Poor cognition POST DISCHARGE ORDERS: Activity Instructions for Disc: No restrictions, Activity as tolerated Weight Bearing Status after Di: As tolerated DIET AFTER DISCHARGE: Cardiac Wound/Incision Care: No wound care needed TREATMENT/EQUIPMENT ORDERS: Adaptive Equipment Issued: None CERTIFICATION STATEMENT: Certification Statement: Certification Statement: Based on the above finding, I certify that this patient is confined to the home and needs intermittent penitentiary care, physical therapy and/or speech therapy, or continues to need occupational therapy.~ This patient is under my care, and I have initiated the establishment of the plan of care.~ This patient will be followed by myself or a community physician who will periodically review the plan of care. Home Meds Reported Medications Pyridoxine Hcl (VITAMIN B-6) 50 Mg Capsule, 50 MG PO DAILY, CAP 04/18/17 Sertraline Hcl (ZOLOFT) 50 Mg Tablet, 1 TAB PO DAILY, #30 TAB 2 Refills 04/18/17 Melatonin (MELATONIN) 3 Mg Tablet, 5 MG PO HS, TAB 04/18/17 Magnesium Oxide (MAGNESIUM OXIDE) 400 Mg Tablet, 1 TAB PO TID, #60 TAB 5 Refills 04/18/17 Ergocalciferol (Vitamin D2) (VITAMIN D2) 50,000 Unit Capsule, 1 CAP PO WEEKLY, #4 CAP 5 Refills 04/18/17 Aspirin (ASPIR 81) 81 Mg Tablet.dr, 1 TAB PO DAILY, #30 TAB 5 Refills 04/18/17 Amlodipine Besylate (AMLODIPINE BESYLATE) 5 Mg Tablet, 5 MG PO DAILY, TAB 04/18/17 Sennosides (SENOKOT) 8.6 Mg Tablet, 1 TAB PO BID, #40 TAB 2/3/17 Atorvastatin Calcium (ATORVASTATIN CALCIUM) 20 Mg Tablet, 1 TAB PO DAILY, #30 TAB 5 Refills 06/03/16 Donepezil Hcl (ARICEPT) 5 Mg Tablet, 1 TAB PO QHS, #30 TAB 5 Refills 06/03/16 Discontinued Scripts Cephalexin (CEPHALEXIN) 500 Mg Tablet, 1 TAB PO BID, #14 TAB Prov:KOLBY ACUNA APRN 10/12/18 Nitrofurantoin Monohyd/M-Cryst (MACROBID 100 MG CAPSULE) 100 Mg Capsule, 1 CAP PO BID, #20 CAP Prov:ERNESTO WRIGHT DO 09/20/17 AIEME CASTRO MD Dec 04, 2018 14:06
[2018-12-04 14:33] VITALS: BP 159/85
--- NOTE | 2018-12-04 14:51 | NUR ---
SS following up with discharge planning. Discharge orders received for home healthcare. SS phoned and faxed discharge orders to [facility], ; fax [phone]. Pt will discharge today and return to home with her family via [facility] ambulance at 1800. Pt, pt's family, and pt's caretakers notified.
--- NOTE | 2018-12-06 09:45 | PDOC3 ---
IM DISCHARGE SUMMARY Date of Admission Date of Admission Date of Admission: Nov 28, 2018 at 21:38 Date of Discharge Date of Discharge December 04, 2018 Primary Diagnosis Primary Diagnosis 1. Recurrent bradycardia with syncope. 2. Alzheimer disease with behavioral disturbances. 3. Hypertension. 4. Urinary tract infection. 5. Coronary artery disease without angina pectoris. 6. History of chronic kidney disease. 7. Primary osteoarthritis involving multiple joints. 8. Mixed hyperlipidemia. 9. Sick sinus syndrome requiring placement of permanent pacemaker. Consults Consults Randall Valente MD Procedures Procedures On December 03, 2018 , 1. Successful placement of a Biotronik Dual Chamber Pacemaker for SSS and Syncope. Brief hospital course Brief hospital course This is an 83-year-old -[place] female, who has history of Alzheimer disease, who went to the dentist a couple of days ago to get tooth extraction; however, the securities supervisor noted that her heart rate was around 30 and 40 on 2 different occasions and so they canceled the surgery and sent her to our office. In the office, her heart rate went up to 48 per minute and she was asymptomatic at that time. I discontinued the Aricept; however, this morning, the patient was noted to be slumped over in the bathroom and she had a syncopal episode. The patient was very confused and unable to provide any information and because of that, the patient was sent to the emergency room. For more details regarding the past history, family history, social history, surgical history and other details, please refer to History and Physical. I will go ahead and start her on intravenous Rocephin and intravenous fluids; hold Lipitor at this time as previously one time the CPK was elevated; recheck labs in the morning; consult Dr. Vieira for Cardiology evaluation and management; discussed with him. The patient will most likely need a pacemaker. We will stop Lipitor and Aricept. For details, please refer to the orders. Start heparin for deep vein thrombosis prophylaxis. Today's labs are pending. UTI- on IV Rocephin. Rocephin was discontinued after 3 days after urine culture showed mixed urethra genital thang. Chronic kidney disease Bradycardia with syncope-patient was noted to have sick sinus syndrome and had a pacemaker placed on 12/03/2018. Procedure-1. Successful placement of a Biotronik Dual Chamber Pacemaker for SSS and Syncope. Condition treatment options extensively discussed with patient's sister Niya on phone including pacemaker placement. Alzheimer's disease- Aricept discontinued due to bradycardia. Patient and the family did not want to go to the halfway after placement of the pacemaker and she was discharged to home with home health services. She has increased risk of damaging the pacemaker wires because of her confusion. Medications Medications reviewed and reconciled for discharge. Allergy Allergies Coded Allergies Type Severity Reaction Last Updated Verified No Known Drug Allergies 06/02/16 No Follow up in 5 days. DISPOSITION: Home health services Comments Discharge Management - 35 minutes. For other details please refer to discharge instructions DONNA BAEZA MD Dec 06, 2018 09:45
== END 2018-12-04 19:10 | disposition home health service (06) | DRG 242 ==
LOC: ER 19:54 → 6 SOUTH 21:38 → 1 WEST ICU 12-03 14:09 → 2 SOUTH 12-03 19:14
PROVIDERS: ADMIT Internal Medicine; ATTEND Internal Medicine
PROC: 0JH606Z Insertion of Pacemaker, Dual Chamber into Chest Subcutaneous Tissue and Fascia, Open Approach (ICD-10-PCS; principal; 2018-12-03)
PROC: 02H63JZ Insertion of Pacemaker Lead into Right Atrium, Percutaneous Approach (ICD-10-PCS; 2018-12-03)
PROC: 02HK3JZ Insertion of Pacemaker Lead into Right Ventricle, Percutaneous Approach (ICD-10-PCS; 2018-12-03)
DX: I49.5 Sick sinus syndrome (principal); G93.41 Metabolic encephalopathy; N17.9 Acute kidney failure, unspecified; N39.0 Urinary tract infection, site not specified; F02.81 Dementia in other diseases classified elsewhere, unspecified severity, with behavioral disturbance; I13.0 Hypertensive heart and chronic kidney disease with heart failure and stage 1 through stage 4 chronic kidney disease, or unspecified chronic kidney disease; E11.22 Type 2 diabetes mellitus with diabetic chronic kidney disease; E11.51 Type 2 diabetes mellitus with diabetic peripheral angiopathy without gangrene; I50.9 Heart failure, unspecified; N18.9 Chronic kidney disease, unspecified; M15.9 Polyosteoarthritis, unspecified; E78.2 Mixed hyperlipidemia; G30.9 Alzheimer's disease, unspecified; I25.10 Atherosclerotic heart disease of native coronary artery without angina pectoris; Z82.49 Family history of ischemic heart disease and other diseases of the circulatory system; Z83.3 Family history of diabetes mellitus; Z86.718 Personal history of other venous thrombosis and embolism; Z79.01 Long term (current) use of anticoagulants; Z79.899 Other long term (current) drug therapy
CPT/HCPCS: 33208; 36415; 71045; 80048; 80053; 81001; 82274; 83735; 84443; 84484; 85025; 85610; 87086; 93005; 93306; 96361; 96374; C1785; C1898; J0690; J0696; J1644; J2001; J2250; J2704; J3490; J7030; J7040; J7050; 97110; 97530; 97535; 99285-25; G0378

== ENCOUNTER 2019-05-21 13:54 | Emergency (ER) | payer OTHER ==
[~2019-05-21] VITALS: Ht 162.6 cm; Wt 74.0 kg
[~2019-05-21 13:54] MED LIST changes: +BUSP5TAB PO; +CEFD300C PO; +CIPR500T94 PO; -MAGN400T3 PO; +MAGN400T5 PO; -MELA3TAB2 PO; +MELA3TAB56 PO; +METR500T PO
[2019-05-21 14:43] LABS: BASO % 0 % (0-3); EOS # 0.1 x10^3/uL (0.0-0.7); EOS % 1 % (0-3); HEMATOCRIT 34.1 % (36.0-47.0); HEMOGLOBIN 11.4 g/dL (12.0-15.5); LYMPH # 1.5 x10^3/uL (1.0-4.8); LYMPH % 21 % (24-48); MEAN CORPUSCULAR HEMOGLOBIN 29 pg (25-35); MEAN CORPUSCULAR HGB CONC 34 g/dL (31-37); MEAN CORPUSCULAR VOLUME 86 fL (79-100); MONO # 0.5 x10^3/uL (0.0-1.1); MONO % 6 % (0-9); NEUT # 5.1 x10^3/uL (1.8-7.7); NEUT % 71 % (31-73); PLATELET COUNT 239 x10^3/uL (140-400); RED BLOOD COUNT 3.98 x10^6/uL (3.50-5.40); RED CELL DISTRIBUTION WIDTH 16.8 % (11.5-14.5); WHITE BLOOD COUNT 7.2 x10^3/uL (4.0-11.0)
[2019-05-21 14:45] LABS: BILIRUBIN,URINE NEGATIVE (NEG); CLARITY,URINE CLOUDY; COLOR,URINE YELLOW; NITRITE,URINE NEGATIVE (NEG); PROTEIN,URINE 100 mg/dL (NEG-TRACE)
--- NOTE | 2019-05-21 14:51 | EKG ---
[facility] [address] [place] [address] Test Date: 2019-05-21 Test Time: 14:10:45 Pat Name: NANETTE HIGH Department: Room: Gender: F Reel Tender: : 1935 Requested By: KEYSHA PURCELL Order Number: [id number] Reading MD: Measurements Intervals [place] Rate: 71 P: 48 OH: 290 QRS: -10 QRSD: 78 T: 125 QT: 410 QTc: 451 Interpretive Statements SINUS RHYTHM PROLONGED OH INTERVAL LEFTWARD AXIS ABNORMAL ECG RI6.01 No previous ECG available for comparison
[2019-05-21 14:56] LABS: BACTERIA,URINE FEW /HPF (0-FEW); WBC,URINE TNTC /HPF (0-4)
[2019-05-21 14:58] LABS: CALCIUM 9.1 mg/dL (8.5-10.1); CREATININE 1.1 mg/dL (0.6-1.0); POTASSIUM 3.4 mmol/L (3.5-5.1)
--- NOTE | 2019-05-21 15:01 | RAD ---
Examination: PORTABLE CHEST 1V History: Near syncope Comparison/Correlation: 04/17/2019 Chest x-ray exam Findings: Portable upright frontal view of the chest was obtained. Dual-lead left-sided pacemaker is present. Elevation right hemidiaphragm noted. Calcified granuloma involves the right lateral lung. No infiltrate or pneumothorax. No significant pleural effusion. Bony structures are grossly unremarkable. Impression: No suspicious findings. Electronically signed by: Jose Gorman MD (05/21/2019 2:58 PM) [facility]
[2019-05-21 15:03] LABS: ALBUMIN 3.6 g/dL (3.4-5.0); ALBUMIN/GLOBULIN RATIO 0.9 (1.0-1.7); MAGNESIUM 1.7 mg/dL (1.8-2.4); TOTAL BILIRUBIN 0.7 mg/dL (0.2-1.0); TOTAL PROTEIN 7.8 g/dL (6.4-8.2)
--- NOTE | 2019-05-21 15:20 | RAD ---
CT HEAD WO CONTRAST History: Near syncope. Comparison: April 17, 2019 Technique: Noncontrast CT imaging was performed of the head. Exposure: One or more of the following individualized dose reduction techniques were utilized for this examination: 1. Automated exposure control 2. Adjustment of the mA and/or kV according to patient size 3. Use of iterative reconstruction technique. Findings: No intracranial hemorrhage. No mass effect. No hydrocephalus. Brain parenchymal volume loss, unchanged. Moderate foci of decreased attenuation within the hemispheric white matter, most often due to chronic microvascular ischemia. Imaged orbits are unremarkable. Partial opacification of the right frontal sinuses, similar compared to prior. Right maxillary sinus secretions. Mastoid air cells are clear. No acute calvarial fracture. Impression: 1. No acute intracranial abnormality. 2. Brain parenchymal volume loss and sequela of chronic microvascular ischemia, unchanged. Electronically signed by: Armaan Chanel DO (05/21/2019 3:17 PM) [id number]
--- NOTE | 2019-05-21 15:28 | RAD ---
Exam: CT abdomen and pelvis without contrast INDICATION: Abdominal pain TECHNIQUE: Sequential axial images through the abdomen and pelvis obtained without IV contrast. Sagittal and coronal reformatted images were reconstructed from the axial data and reviewed. Comparisons: 04/18/2019 FINDINGS: Heart size is normal. Pacer leads terminating the right heart. No pericardial effusion. There are strandy opacities within the dependent portion the lungs likely representing atelectasis. No pleural effusion. Evaluation of the solid organs is limited secondary to noncontrast technique. Liver, spleen,, pancreas and adrenals are unremarkable. Gallbladder is surgically absent. No perinephric inflammation or hydronephrosis. No renal or ureteral calculi are identified. Bladder is decompressed not well evaluated. Small amount of air is noted within the bladder. Uterus is absent. No abnormal adnexal mass. Diverticulosis is noted within the sigmoid and descending colon. There is mild residual inflammatory changes at the sigmoid colon which have significantly decreased when compared to the prior study. No evidence for perforation or adjacent fluid collection. Appendix is not identified. Small bowel is unremarkable. No free intra-abdominal air or fluid. There is a infrarenal abdominal aortic aneurysm measuring up to 2.6 cm in diameter. No enlarged intra-abdominal lymph nodes are identified. No suspicious osseous lesions or acute fractures. IMPRESSION: 1. Mild inflammatory changes at the sigmoid colon in an area of diverticulosis. Findings may represent residual/resolving diverticulitis from prior episode versus new developing episode of acute diverticulitis. No evidence for perforation or abscess. 2. Small stable infrarenal abdominal aortic aneurysm. Exposure: One or more of the following in the visualized dose reduction techniques were utilized for this examination: 1. Automated exposure control 2. Adjustment of the MA and/or KV according to patient size 3. Use of iterative of reconstructive technique Electronically signed by: Mor Nicolas MD (05/21/2019 3:25 PM) [id number]
[2019-05-21] MEDS ORDERED: cefTRIAXone IV Push 1 GM VIAL. IVP ONE (16:30)
[2019-05-21 16:31] VITALS: BP 165/89
[2019-05-21] MEDS ORDERED: CEPH-264 PO (16:58)
--- NOTE | 2019-05-21 16:58 | PHYS DOC ---
Past Medical History Past Medical History: CHF, Dementia, DVT, High Cholesterol, Hypertension, Other Additional Past Medical Histor: ALZHEIMER'S Past Surgical History: Pacemaker, Other Additional Past Surgical Histo: UNKNOWN Alcohol Use: None Drug Use: None Adult General Chief Complaint Chief Complaint: WEAKNESS/GENERALIZED HPI HPI Patient is a 84 year old female with history of hypertension, dyslipidemia, CHF, Alzheimer and dementia who presents with complaint of syncope. Patient just finished a course of Flagyl and Cipro for diverticulitis recently. Patient had a bowel movement with hard stool today and had a syncopal without fall. Patient has dementia and is alert and oriented 1 and denies any problem. According to caregiver patient complaining of abdominal pain without change of her mental status. Patient had history of syncope previously. Review of Systems Review of Systems Constitutional: Denies fever or chills [] Eyes: Denies change in visual acuity, redness, or eye pain [] HENT: Denies nasal congestion or sore throat [] Respiratory: Denies cough or shortness of breath [] Cardiovascular: No additional information not addressed in HPI [] GI: Denies abdominal pain, nausea, vomiting, bloody stools or diarrhea [] : Denies dysuria or hematuria [] Musculoskeletal: Denies back pain or joint pain [] Integument: Denies rash or skin lesions [] Neurologic: Denies headache, focal weakness or sensory changes [] Endocrine: Denies polyuria or polydipsia [] All other systems were reviewed and found to be within normal limits, except as documented in this note. Current Medications Current Medications Current Medications Medications (Trade) Dose Ordered Sig/Jesus Start Time Stop Time Status Last Admin Dose Admin Ceftriaxone Sodium (Rocephin) 1 gm 1X ONCE 05/21/19 16:30 05/21/19 16:31 DC Allergies Allergies Allergies Coded Allergies Type Severity Reaction Last Updated Verified No Known Drug Allergies 06/02/16 No Physical Exam Physical Exam Constitutional: Well nourished, no acute distress, non-toxic appearance. [] HENT: Normocephalic, atraumatic, oropharynx moist. Eyes: PERRLA, EOMI, conjunctiva normal, no discharge. [] Neck: Normal range of motion, no tenderness, supple, no stridor. [] Cardiovascular:Heart rate regular rhythm, no murmur [] Lungs & Thorax: Bilateral breath sounds clear to auscultation [] Abdomen: Bowel sounds normal, soft, no tenderness, no masses, no pulsatile masses. [] Skin: Warm, dry, no erythema, no rash. [] Back: No tenderness, no CVA tenderness. [] Extremities: No tenderness, no cyanosis, no clubbing, ROM intact, no edema. [] Neurologic: Alert and oriented X 1, normal motor function, normal sensory function, no focal deficits noted. [] Psychologic: Affect normal, mood normal. [] Current Patient Data Vital Signs Vital Signs Date Time Temp Pulse Resp B/P (MAP) Pulse Ox O2 Delivery O2 Flow Rate FiO2 05/21/19 13:55 97.5 79 16 148/85 (106) 100 Room Air 97.5 Lab Values Laboratory Tests Test 05/21/19 14:19 05/21/19 14:30 Urine Collection Type Unknown Urine Color Yellow Urine Clarity Cloudy Urine pH 6.0 Urine Specific Casco 1.015 Urine Protein 100 mg/dL (NEG-TRACE) Urine Glucose (UA) Negative mg/dL (NEG) Urine Ketones (Stick) Negative mg/dL (NEG) Urine Blood Moderate (NEG) Urine Nitrite Negative (NEG) Urine Bilirubin Negative (NEG) Urine Urobilinogen Dipstick 1.0 mg/dL (0.2 mg/dL) Urine Leukocyte Esterase Large (NEG) Urine RBC 3-5 /HPF (0-2) Urine WBC Tntc /HPF (0-4) Urine Squamous Epithelial Cells None /LPF Urine Bacteria Few /HPF (0-FEW) Urine Mucus Slight /LPF White Blood Count 7.2 x10^3/uL (4.0-11.0) Red Blood Count 3.98 x10^6/uL (3.50-5.40) Hemoglobin 11.4 g/dL (12.0-15.5) L Hematocrit 34.1 % (36.0-47.0) L Mean Corpuscular Volume 86 fL (79-100) Mean Corpuscular Hemoglobin 29 pg (25-35) Mean Corpuscular Hemoglobin Concent 34 g/dL (31-37) Red Cell Distribution Width 16.8 % (11.5-14.5) H Platelet Count 239 x10^3/uL (140-400) Neutrophils (%) (Auto) 71 % (31-73) Lymphocytes (%) (Auto) 21 % (24-48) L Monocytes (%) (Auto) 6 % (0-9) Eosinophils (%) (Auto) 1 % (0-3) Basophils (%) (Auto) 0 % (0-3) Neutrophils # (Auto) 5.1 x10^3/uL (1.8-7.7) Lymphocytes # (Auto) 1.5 x10^3/uL (1.0-4.8) Monocytes # (Auto) 0.5 x10^3/uL (0.0-1.1) Eosinophils # (Auto) 0.1 x10^3/uL (0.0-0.7) Basophils # (Auto) 0.0 x10^3/uL (0.0-0.2) Prothrombin Time 13.0 SEC (11.7-14.0) Prothrombin Time INR 1.0 (0.8-1.1) Sodium Level 142 mmol/L (136-145) Potassium Level 3.4 mmol/L (3.5-5.1) L Chloride Level 104 mmol/L (98-107) Carbon Dioxide Level 28 mmol/L (21-32) Anion Gap 10 (6-14) Blood Urea Nitrogen 13 mg/dL (7-20) Creatinine 1.1 mg/dL (0.6-1.0) H Estimated GFR (Cockcroft-Gault) 57.0 BUN/Creatinine Ratio 12 (6-20) Glucose Level 91 mg/dL (70-99) Lactic Acid Level 1.7 mmol/L (0.4-2.0) Calcium Level 9.1 mg/dL (8.5-10.1) Magnesium Level 1.7 mg/dL (1.8-2.4) L Total Bilirubin 0.7 mg/dL (0.2-1.0) Aspartate Amino Transferase (AST) 25 U/L (15-37) Alanine Aminotransferase (ALT) 17 U/L (14-59) Alkaline Phosphatase 63 U/L (46-116) Troponin I Quantitative < 0.017 ng/mL (0.000-0.055) Total Protein 7.8 g/dL (6.4-8.2) Albumin 3.6 g/dL (3.4-5.0) Albumin/Globulin Ratio 0.9 (1.0-1.7) L Laboratory Tests 05/21/19 14:30 Laboratory Tests 05/21/19 14:30 EKG EKG EKG interpreted by me. EKG at 1410 showed normal sinus rhythm at rate of 71, prolonged MO at 290, leftward axis, no acute ST and T-wave elevation. Radiology/Procedures Radiology/Procedures [][facility] [address] [place] [address] IMAGING REPORT Signed PATIENT: NANETTE HIGH ACCOUNT: [id number] : 1935 LOCATION: ER AGE: 84 SEX: F EXAM STATUS: REG ER ORD. PHYSICIAN: KEYSHA PURCELL MD REASON: abdominal pain PROCEDURE: CT ABDOMEN PELVIS WO CONTRAST Exam: CT abdomen and pelvis without contrast INDICATION: Abdominal pain TECHNIQUE: Sequential axial images through the abdomen and pelvis obtained without IV contrast. Sagittal and coronal reformatted images were reconstructed from the axial data and reviewed. Comparisons: 04/18/2019 FINDINGS: Heart size is normal. Pacer leads terminating the right heart. No pericardial effusion. There are strandy opacities within the dependent portion the lungs likely representing atelectasis. No pleural effusion. Evaluation of the solid organs is limited secondary to noncontrast technique. Liver, spleen,, pancreas and adrenals are unremarkable. Gallbladder is surgically absent. No perinephric inflammation or hydronephrosis. No renal or ureteral calculi are identified. Bladder is decompressed not well evaluated. Small amount of air is noted within the bladder. Uterus is absent. No abnormal adnexal mass. Diverticulosis is noted within the sigmoid and descending colon. There is mild residual inflammatory changes at the sigmoid colon which have significantly decreased when compared to the prior study. No evidence for perforation or adjacent fluid collection. Appendix is not identified. Small bowel is unremarkable. No free intra-abdominal air or fluid. There is a infrarenal abdominal aortic aneurysm measuring up to 2.6 cm in diameter. No enlarged intra-abdominal lymph nodes are identified. No suspicious osseous lesions or acute fractures. IMPRESSION: 1. Mild inflammatory changes at the sigmoid colon in an area of diverticulosis. Findings may represent residual/resolving diverticulitis from prior episode versus new developing episode of acute diverticulitis. No evidence for perforation or abscess. 2. Small stable infrarenal abdominal aortic aneurysm. Exposure: One or more of the following in the visualized dose reduction techniques were utilized for this examination: 1. Automated exposure control 2. Adjustment of the MA and/or KV according to patient size 3. Use of iterative of reconstructive technique Electronically signed by: Mor De Leon MD (05/21/2019 3:25 PM) [place] [id number] DICTATED and SIGNED BY: MOR DE LEON MD DATE: 05/21/19 1525 [facility] [address] [place] [address] IMAGING REPORT Signed PATIENT: NANETTE HIGH ACCOUNT: [id number] : 1935 LOCATION: ER AGE: 84 SEX: F EXAM STATUS: REG ER ORD. PHYSICIAN: KEYSHA PURCELL MD REASON: near-syncope PROCEDURE: PORTABLE CHEST 1V Examination: PORTABLE CHEST 1V History: Near syncope Comparison/Correlation: 04/17/2019 Chest x-ray exam Findings: Portable upright frontal view of the chest was obtained. Dual-lead left-sided pacemaker is present. Elevation right hemidiaphragm noted. Calcified granuloma involves the right lateral lung. No infiltrate or pneumothorax. No significant pleural effusion. Bony structures are grossly unremarkable. Impression: No suspicious findings. Electronically signed by: Jose Paniagua MD (05/21/2019 2:58 PM) [facility] DICTATED and SIGNED BY: JOSE PANIAGUA MD DATE: 05/21/19 1458 [facility] [address] [place] [address] IMAGING REPORT Signed PATIENT: NANETTE HIGH ACCOUNT: [id number] : 1935 LOCATION: ER AGE: 84 SEX: F EXAM STATUS: REG ER ORD. PHYSICIAN: KEYSHA PURCELL MD REASON: near syncope PROCEDURE: CT HEAD WO CONTRAST CT HEAD WO CONTRAST History: Near syncope. Comparison: April 17, 2019 Technique: Noncontrast CT imaging was performed of the head. Exposure: One or more of the following individualized dose reduction techniques were utilized for this examination: 1. Automated exposure control 2. Adjustment of the mA and/or kV according to patient size 3. Use of iterative reconstruction technique. Findings: No intracranial hemorrhage. No mass effect. No hydrocephalus. Brain parenchymal volume loss, unchanged. Moderate foci of decreased attenuation within the hemispheric white matter, most often due to chronic microvascular ischemia. Imaged orbits are unremarkable. Partial opacification of the right frontal sinuses, similar compared to prior. Right maxillary sinus secretions. Mastoid air cells are clear. No acute calvarial fracture. Impression: 1. No acute intracranial abnormality. 2. Brain parenchymal volume loss and sequela of chronic microvascular ischemia, unchanged. Electronically signed by: Armaan Cook DO (05/21/2019 3:17 PM) [id number] DICTATED and SIGNED BY: ARMAAN COOK DO DATE: 05/21/19 1517 Course & Med Decision Making Course & Med Decision Making Pertinent Labs and Imaging studies reviewed. (See chart for details) Evaluation of patient in ER showed 84-year-old female patient who lives at home with caregiver brought in because of syncope after having a bowel movement with constipation. She had unremarkable physical exam except for dementia and is stable vital signs. Labs showed UTI without leukocytosis or elevation of lactic acid. CT head was unremarkable. CT abdomen showed improving diverticulitis that she was recently treated with Cipro and Flagyl. Patient had 1 dose of Rocephin in ER and plan to discharge home with prescription of Keflex. I've spoken with the patient and/or caregivers. I've explained the patient's condition, diagnosis and treatment plan based on information available to me at this time. I've answered the patient's and/or caregivers questions and addressed any concerns. The patient and/or caregivers have a good understanding the patient's diagnosis, condition and treatment plan as can be expected at this point. Vital signs have been stabilized. The patient's condition is stable for discharge from the emergency department. The patient will pursue further outpatient evaluation with her primary care provider or other designated consulting physician as outlined in the discharge instructions. Patient and/or caregivers are agreeable to this plan of care and follow-up instructions have been explained in detail. The patient and/or caregivers have received these instructions in written format and expressed understanding of these discharge instructions. The patient and her caregivers are aware that if any significant change in condition or worsening of symptoms should prompt him to immediately return to this of the closest emergency department. If an emergent department is not readily available I would encourage him to call 911. Rossi Disclaimer Rossi Disclaimer This electronic medical record was generated, in whole or in part, using a voice recognition dictation system. Departure Departure Impression: Primary Impression: Vasovagal syncope Additional Impressions: UTI (urinary tract infection) Chronic anemia Dementia Disposition: HOME, SELF-CARE (at 1654) Condition: STABLE Referrals: DONNA BAEZA MD (PCP) Patient Instructions: Syncope, Urinary Tract Infection Additional Instructions: Follow-up with your primary care physician in 3-5 days Return to ER if not getting better Thank you for visiting [facility]. We appreciate you trusting us with your care. If any additional problems come up don't hesitate to return to visit us. Please follow up with your primary care provider so they can plan additional care if needed and know about the problem that you had. If symptoms worsen come back to the Emergency Department. Any concerning symptoms that start such as chest pain, shortness of air, weakness or numbness on one side of the body, running high fevers or any other concerning symptoms return to the ER. Scripts Cephalexin (KEFLEX) 500 Mg Capsule 1 CAP PO Q8HRS, #21 CAP 0 Refills Prov: KEYSHA PURCELL MD 05/21/19 Problem Qualifiers Additional Impressions: UTI (urinary tract infection) Urinary tract infection type: site unspecified Hematuria presence: without hematuria Qualified Codes: N39.0 - Urinary tract infection, site not specified Dementia Dementia type: unspecified type Dementia behavioral disturbance: without behavioral disturbance Qualified Codes: F03.90 - Unspecified dementia without behavioral disturbance KEYSHA PURCELL MD May 21, 2019 16:58
== END 2019-05-21 17:16 | disposition home or self-care (01) ==
LOC: ER 13:54
DX: N39.0 Urinary tract infection, site not specified (principal); R55 Syncope and collapse; D64.9 Anemia, unspecified; G30.9 Alzheimer's disease, unspecified; F02.80 Dementia in other diseases classified elsewhere, unspecified severity, without behavioral disturbance, psychotic disturbance, mood disturbance, and anxiety; E78.00 Pure hypercholesterolemia, unspecified; I11.0 Hypertensive heart disease with heart failure; I50.9 Heart failure, unspecified; E78.5 Hyperlipidemia, unspecified; Z86.718 Personal history of other venous thrombosis and embolism; Z95.0 Presence of cardiac pacemaker
CPT/HCPCS: 36415; 70450; 71045; 74176; 80053; 81001; 83605; 83735; 84484; 85025; 85610; 87040; 87086; 93005; 96374; 99285; J0696

== ENCOUNTER 2019-12-17 10:30 | Emergency (ER) | payer OTHER ==
[~2019-12-17] VITALS: Ht 162.6 cm; Wt 63.6 kg
[~2019-12-17 10:30] MED LIST changes: +CEPH-264 PO; +MELA3TAB4 PO; -MELA3TAB56 PO
[2019-12-17 10:59] VITALS: BP 137/67
--- NOTE | 2019-12-17 11:30 | RAD ---
EXAM: HIP RIGHT 2V WITH PELVIS. HISTORY: Right hip pain after injury. COMPARISON: None. FINDINGS: The pelvis image is rotated to the left. No fractures are identified. The joint spaces and alignment of both hips appear maintained. There are mild degenerative changes of the lower lumbar spine for patient age. The rectum appears to be distended to 8 cm consistent with fecal impaction. Mild atherosclerotic calcifications are noted. IMPRESSION: 1. No fracture. 2. Correlate for fecal impaction. Electronically signed by: Farhan Recio MD (12/17/2019 11:27 AM) [id number]
--- NOTE | 2019-12-17 11:47 | PHYS DOC ---
Past Medical History Past Medical History: CHF, Dementia, DVT, High Cholesterol, Hypertension, Other Additional Past Medical Histor: ALZHEIMER'S Past Surgical History: Pacemaker, Other Additional Past Surgical Histo: UNKNOWN Smoking Status: Never Smoker Alcohol Use: None Drug Use: None General Adult EDM: Chief Complaint: HIP PAIN HPI: HPI: Patient is an 84-year-old female with end-stage dementia who lives at home with family and home health management. This morning the home health care nurse came was giving the patient a bath and noticed a discoloration on her right hip and right flank area that she thought may have been a bruise. She did not notice that the patient was in any serious discomfort. She was concerned that she may have fallen and injured herself through the night. No fall was witnessed. Patient is unable to provide any history.] Review of Systems: Review of Systems: Review of systems is unobtainable secondary to end-stage dementia Heart Score: Risk Factors: Risk Factors: DM, Current or recent (<one month) smoker, HTN, HLP, family history of CAD, obesity. Risk Scores: Score 0 - 3: 2.5% MACE over next 6 weeks - Discharge Home Score 4 - 6: 20.3% MACE over next 6 weeks - Admit for Clinical Observation Score 7 - 10: 72.7% MACE over next 6 weeks - Early Invasive Strategies Allergies: Allergies: Allergies Coded Allergies Type Severity Reaction Last Updated Verified No Known Drug Allergies 06/02/16 No Physical Exam: PE: Constitutional: Frail, elderly in no distress. [] HENT: Normocephalic, atraumatic, bilateral external ears normal, oropharynx moist, no oral exudates, nose normal. [] Eyes: PERRLA, EOMI, conjunctiva normal, no discharge. [] Neck: Normal range of motion, no tenderness, supple, no stridor. [] Cardiovascular:Heart rate regular rhythm, no murmur [] Lungs & Thorax: Bilateral breath sounds clear to auscultation [] Abdomen: Bowel sounds normal, soft, no tenderness, no masses, no pulsatile masses. [] Skin: Warm, dry, no erythema, no rash. [] Back: No tenderness, no CVA tenderness. [] Extremities: There is some skin discoloration over the greater trochanter of the right hip but it does not appear to be bruising more just chronic discoloration she has a similar area on her right flank. Her right hip is not shortened or externally rotated and she seems to move it through range of motion without any discomfort. [] Neurologic: Awake but confused, normal motor function, normal sensory function, no focal deficits noted. [] Psychologic: Unable to assess but caregiver states she is at her baseline. [] Current Patient Data: Vital Signs: Vital Signs Date Time Temp Pulse Resp B/P (MAP) Pulse Ox O2 Delivery O2 Flow Rate FiO2 12/17/19 10:59 98.1 70 18 137/67 (90) 99 Room Air 98.1 EKG: EKG: [] Radiology/Procedures: Radiology/Procedures: []REASON: hip pain/injury PROCEDURE: HIP RIGHT 2V WITH PELVIS EXAM: HIP RIGHT 2V WITH PELVIS. HISTORY: Right hip pain after injury. COMPARISON: None. FINDINGS: The pelvis image is rotated to the left. No fractures are identified. The joint spaces and alignment of both hips appear maintained. There are mild degenerative changes of the lower lumbar spine for patient age. The rectum appears to be distended to 8 cm consistent with fecal impaction. Mild atherosclerotic calcifications are noted. IMPRESSION: 1. No fracture. 2. Correlate for fecal impaction. Course & Med Decision Making: Course & Med Decision Making Pertinent Labs and Imaging studies reviewed. (See chart for details) [] Dragon Disclaimer: Dragon Disclaimer: This electronic medical record was generated, in whole or in part, using a voice recognition dictation system. Departure Departure Impression: Primary Impression: Contusion of right hip Qualified Codes: S70.01XA - Contusion of right hip, initial encounter Disposition: HOME, SELF-CARE Condition: STABLE Referrals: DONNA BAEZA MD (PCP) Patient Instructions: Fall Prevention and Home Safety Additional Instructions: Return to the emergency department with any new or concerning symptoms Justicifation of Admission Dx: Justifications for Admission: Justification of Admission Dx: No ROLAND LEBRON DO Dec 17, 2019 11:47
== END 2019-12-17 14:53 | disposition home or self-care (01) ==
LOC: ER 10:30
DX: S70.01XA Contusion of right hip, initial encounter (principal); K56.41 Fecal impaction; I11.0 Hypertensive heart disease with heart failure; I50.9 Heart failure, unspecified; E78.00 Pure hypercholesterolemia, unspecified; G30.9 Alzheimer's disease, unspecified; F02.80 Dementia in other diseases classified elsewhere, unspecified severity, without behavioral disturbance, psychotic disturbance, mood disturbance, and anxiety; Z86.718 Personal history of other venous thrombosis and embolism; Z95.0 Presence of cardiac pacemaker; W18.39XA Other fall on same level, initial encounter; Y93.89 Activity, other specified; Y92.89 Other specified places as the place of occurrence of the external cause; Y99.8 Other external cause status
CPT/HCPCS: 73502; 99284

== ENCOUNTER 2020-07-23 14:33 | Inpatient (IN) | payer OTHER ==
[~2020-07-23] VITALS: Ht 162.6 cm; Wt 55.7 kg
[~2020-07-23 14:33] MED LIST changes: +AMLO-186 PO; -AMLO5TAB10 PO
[2020-07-23] MEDS ORDERED: IV NORMAL SALINE 1000ML BAG 1,000 ML IV ONE ×2 (15:00→23:30)
[2020-07-23 15:16] LABS: BASO % 0 % (0-3); EOS % 0 % (0-3); HEMATOCRIT 36.8 % (36.0-47.0); LYMPH # 1.3 x10^3/uL (1.0-4.8); LYMPH % 11 % (24-48); MEAN CORPUSCULAR HEMOGLOBIN 29 pg (25-35); MEAN CORPUSCULAR HGB CONC 33 g/dL (31-37); MEAN CORPUSCULAR VOLUME 89 fL (79-100); MONO # 0.9 x10^3/uL (0.0-1.1); MONO % 7 % (0-9); NEUT # 9.5 x10^3/uL (1.8-7.7); NEUT % 81 % (31-73); PLATELET COUNT 264 x10^3/uL (140-400); RED BLOOD COUNT 4.14 x10^6/uL (3.50-5.40); WHITE BLOOD COUNT 11.8 x10^3/uL (4.0-11.0)
--- NOTE | 2020-07-23 15:18 | RAD ---
AP chest. HISTORY: Altered mental status AP view was taken of the chest. Patient's taken a poor inspiration. There is elevation the right diap hragm. There is a pacemaker on the left with atrial and ventricular pacing leads without change. Ther e are no acute infiltrates. IMPRESSION: 1. Elevated right diaphragm. 2. No acute infiltrates. Electronically signed by: Jeancarlos Ling MD (07/23/2020 3:16 PM) [facility]
[2020-07-23 15:31] LABS: CALCIUM 9.2 mg/dL (8.5-10.1); CREATININE 1.1 mg/dL (0.6-1.0); GFR 56.9; POTASSIUM 4.1 mmol/L (3.5-5.1)
[2020-07-23 15:37] LABS: ALBUMIN 3.2 g/dL (3.4-5.0); ALBUMIN/GLOBULIN RATIO 0.7 (1.0-1.7); TOTAL BILIRUBIN 0.9 mg/dL (0.2-1.0); TOTAL PROTEIN 7.6 g/dL (6.4-8.2)
[2020-07-23 15:47] LABS: CREATINE KINASE 53 U/L (26-192)
--- NOTE | 2020-07-23 15:51 | RAD ---
CT Head without contrast 07/23/2020 3:04 PM Indication: Altered mental status: Comparison: CT head without contrast May 21, 2019 Findings: No intracranial hemorrhage is seen. No evidence of acute territorial infarct is seen. Note that CT is limited in sensitivity for acute ischemia. Age-related atrophic changes are noted. Ther e is patchy periventricular and deep white matter hypoattenuation which is nonspecific, but most comm only relates to chronic small vessel disease. No abnormal extra axial fluid collection is identified . No mass effect or midline shift is seen. No acute osseous abnormalities are seen. Impression: 1. No acute intracranial process identified 2. Grossly stable senescent atrophic changes and evidence of chronic small vessel disease as describe d CT DOSING PQRS STATEMENT: One or more of the following individualized dose reduction techniques were utilized for this examinat ion: 1. Automated exposure control 2. Adjustment of the mA and/or kV according to patient size 3. Use of iterative reconstruction technique Electronically signed by: Bg Garay MD (07/23/2020 3:48 PM) [id number]
--- NOTE | 2020-07-23 16:51 | PHYS DOC ---
Past Medical History Past Medical History: CHF, Dementia, DVT, High Cholesterol, Hypertension, Other Additional Past Medical Histor: ALZHEIMER'S Past Surgical History: Pacemaker, Other Additional Past Surgical Histo: UNKNOWN Smoking Status: Never Smoker Alcohol Use: None Drug Use: None General Adult EDM: Chief Complaint: WEAKNESS/GENERALIZED HPI: HPI: Patient is a 85 year old female with history of CHF, hypertension, high cholesterol, who presents to the ED today with a caregiver, the caregiver states patient is not as verbal and active as normal. Caregiver stated this was noted today. Caregiver states yesterday patient was started on an appetite pill and they were notified by the PCP that it may make her drowsy. Caregiver state patient is very drowsy. 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 [] Heart Score: C/O Chest Pain: N/A Risk Factors: Risk Factors: DM, Current or recent (<one month) smoker, HTN, HLP, family history of CAD, obesity. Risk Scores: Score 0 - 3: 2.5% MACE over next 6 weeks - Discharge Home Score 4 - 6: 20.3% MACE over next 6 weeks - Admit for Clinical Observation Score 7 - 10: 72.7% MACE over next 6 weeks - Early Invasive Strategies Current Medications: Current Medications Medications (Trade) Dose Ordered Sig/Jesus Start Time Stop Time Status Last Admin Dose Admin Sodium Chloride 1,000 ml @ 1,000 mls/hr 1X ONCE 07/23/20 15:00 07/23/20 15:59 DC Allergies: Allergies: Allergies Coded Allergies Type Severity Reaction Last Updated Verified No Known Drug Allergies 06/02/16 No Physical Exam: PE: Constitutional: Well developed, well nourished, no acute distress, non-toxic appearance. [] HENT: Normocephalic, atraumatic, bilateral external ears normal, oropharynx m oist, no oral exudates, nose normal. [] Eyes: PERRLA, EOMI, conjunctiva normal, no discharge. [] Neck: Normal range of motion, no tenderness, supple, no stridor. [] Cardiovascular: Paced rhythm Lungs & Thorax: Bilateral breath sounds clear to auscultation [] Abdomen: Bowel sounds normal, soft, no tenderness, no masses, no pulsatile masses. [] Skin: chronic wound on the left hip. Warm, dry, no erythema, no rash. [] Back: No tenderness, no CVA tenderness. [] Extremities: No tenderness, no cyanosis, no clubbing, ROM intact, no edema. [] Neurologic: Alert and oriented X 1, mostly lethargic, normal motor function, normal sensory function, no focal deficits noted. Cranial nerves II through XII intact Psychologic: Flat affect Current Patient Data: Labs: Laboratory Tests Test 07/23/20 15:05 White Blood Count 11.8 x10^3/uL (4.0-11.0) H Red Blood Count 4.14 x10^6/uL (3.50-5.40) Hemoglobin 12.0 g/dL (12.0-15.5) Hematocrit 36.8 % (36.0-47.0) Mean Corpuscular Volume 89 fL (79-100) Mean Corpuscular Hemoglobin 29 pg (25-35) Mean Corpuscular Hemoglobin Concent 33 g/dL (31-37) Red Cell Distribution Width 15.0 % (11.5-14.5) H Platelet Count 264 x10^3/uL (140-400) Neutrophils (%) (Auto) 81 % (31-73) H Lymphocytes (%) (Auto) 11 % (24-48) L Monocytes (%) (Auto) 7 % (0-9) Eosinophils (%) (Auto) 0 % (0-3) Basophils (%) (Auto) 0 % (0-3) Neutrophils # (Auto) 9.5 x10^3/uL (1.8-7.7) H Lymphocytes # (Auto) 1.3 x10^3/uL (1.0-4.8) Monocytes # (Auto) 0.9 x10^3/uL (0.0-1.1) Eosinophils # (Auto) 0.0 x10^3/uL (0.0-0.7) Basophils # (Auto) 0.0 x10^3/uL (0.0-0.2) Sodium Level 141 mmol/L (136-145) Potassium Level 4.1 mmol/L (3.5-5.1) Chloride Level 102 mmol/L (98-107) Carbon Dioxide Level 29 mmol/L (21-32) Anion Gap 10 (6-14) Blood Urea Nitrogen 13 mg/dL (7-20) Creatinine 1.1 mg/dL (0.6-1.0) H Estimated GFR (Cockcroft-Gault) 56.9 BUN/Creatinine Ratio 12 (6-20) Glucose Level 82 mg/dL (70-99) Lactic Acid Level 1.4 mmol/L (0.4-2.0) Calcium Level 9.2 mg/dL (8.5-10.1) Magnesium Level 2.0 mg/dL (1.8-2.4) Total Bilirubin 0.9 mg/dL (0.2-1.0) Aspartate Amino Transferase (AST) 24 U/L (15-37) Alanine Aminotransferase (ALT) 23 U/L (14-59) Alkaline Phosphatase 104 U/L (46-116) Creatine Kinase 53 U/L (26-192) Creatine Kinase MB (Mass) < 0.5 ng/mL (0.0-3.6) Creatine Kinase MB Relative Index 0.9 % (0-4) Troponin I Quantitative < 0.017 ng/mL (0.000-0.055) XD-Dyz-L-Type Natriuretic Peptide 157 pg/mL (0-449) Total Protein 7.6 g/dL (6.4-8.2) Albumin 3.2 g/dL (3.4-5.0) L Albumin/Globulin Ratio 0.7 (1.0-1.7) L Lipase 52 U/L (73-393) L Procalcitonin < 0.10 ng/mL (0.00-0.10) Laboratory Tests 07/23/20 15:05 Laboratory Tests 07/23/20 15:05 Vital Signs: Vital Signs Date Time Temp Pulse Resp B/P (MAP) Pulse Ox O2 Delivery O2 Flow Rate FiO2 07/23/20 14:34 98.4 69 16 102/49 (66) 98 Room Air 98.4 EKG: EK interpreted by Dr. Waldrop Paced rhythm HR 70 no STEMI[] Radiology/Procedures: Radiology/Procedures: []PROCEDURE: CT HEAD WO CONTRAST CT Head without contrast 07/23/2020 3:04 PM Indication: Altered mental status: Comparison: CT head without contrast May 21, 2019 Findings: No intracranial hemorrhage is seen. No evidence of acute territorial infarct is seen. Note that CT is limited in sensitivity for acute ischemia. Age-related atrophic changes are noted. There is patchy periventricular and deep white matter hypoattenuation which is nonspecific, but most commonly relates to chronic small vessel disease. No abnormal extra axial fluid collection is identified. No mass effect or midline shift is seen. No acute osseous abnormalities are seen. Impression: 1. No acute intracranial process identified 2. Grossly stable senescent atrophic changes and evidence of chronic small vessel disease as described CT DOSING PQRS STATEMENT: One or more of the following individualized dose reduction techniques were utilized for this examination: 1. Automated exposure control 2. Adjustment of the mA and/or kV according to patient size 3. Use of iterative reconstruction technique Electronically signed by: Bg Campbell MD (07/23/2020 3:48 PM) [id number] DICTATED and SIGNED BY: BG CAMPBELL MD DATE: 07/23/20 [id number] PROCEDURE: PORTABLE CHEST 1V AP chest. HISTORY: Altered mental status AP view was taken of the chest. Patient's taken a poor inspiration. There is elevation the right diaphragm. There is a pacemaker on the left with atrial and ventricular pacing leads without change. There are no acute infiltrates. IMPRESSION: 1. Elevated right diaphragm. 2. No acute infiltrates. Electronically signed by: Jeancarlos Ling MD (07/23/2020 3:16 PM) [facility] DICTATED and SIGNED BY: JEANCARLOS LING MD DATE: 07/23/20 [id number] 0 Course & Med Decision Making: Course & Med Decision Making Pertinent Labs and Imaging studies reviewed. (See chart for details) This is a 85-year-old female patient presented to the ED today to be evaluated for not being as active and is awake is normal. Symptoms are noted this morning. Last known normal was yesterday when she was put in bed. Patient was started on an appetite pill by the PCP yesterday and caregiver was told it might make patient drowsy. Patient is drowsy in the ED but able to open her eyes and swinging her hands when you attempt to touch her. CT of the head, chest x-ray negative for any acute findings. CBC WITH A WBC OF 11.8, CMP with no acute findings. Urine analysis positive for UTI. Started on Rocephin. Spoke with Dr. Ryan who accepted patient for admission Dragon Disclaimer: Dragon Disclaimer: This electronic medical record was generated, in whole or in part, using a voice recognition dictation system. Departure Departure Impression: Primary Impression: UTI (urinary tract infection) Qualified Codes: N30.00 - Acute cystitis without hematuria Additional Impression: AMS (altered mental status) Qualified Codes: R41.82 - Altered mental status, unspecified Disposition: 09 ADMITTED INPT THIS HOSP Condition: STABLE Referrals: DONNA RYAN MD (PCP) KOLBY ACUNA APRN Jul 23, 2020 16:51
[2020-07-23 18:10] LABS: BILIRUBIN,URINE NEGATIVE (NEG); CLARITY,URINE CLEAR; COLOR,URINE YELLOW; NITRITE,URINE POSITIVE (NEG); PH,URINE 5.5 (<5.0-8.0); PROTEIN,URINE NEGATIVE (NEG-TRACE)
[2020-07-23 18:25] LABS: BARBITURATES NEG (NEG); BENZODIAZEPINES NEG (NEG); CANNABINOIDS NEG (NEG); COCAINE NEG (NEG); METHADONE NEG (NEG); OPIATES NEG (NEG); PHENCYCLIDINE NEG (NEG)
[2020-07-23 18:40] LABS: BACTERIA,URINE MODERATE /HPF (0-FEW); RBC,URINE 0 /HPF (0-2)
[2020-07-23 18:48] LABS: AMPHETAMINE/METHAMPHETAMINE NEG (NEG)
[2020-07-23] MEDS ORDERED: cefTRIAXone IV Push 1 GM VIAL. IVP ONE (19:00)
[2020-07-23 23:00] VITALS: BP 124/68
[2020-07-23] MEDS ORDERED: ONDANSETRON PF 4 MG/2 ML VIAL. IV PRN (23:00)
[2020-07-23] MEDS ORDERED: MORPHINE SULFATE 2 MG/ML VIAL. IV PRN (23:00)
[2020-07-23] MEDS ORDERED: ACETAMINOPHEN 325 MG TABLET. PO PRN (23:00)
--- NOTE | 2020-07-24 00:59 | NUR ---
The patient, NANETTE HIGH, 85 y/o, F admitted by DONNA BAEZA MD, was given written information regarding hospital policies, unit procedures and contact persons. Patient unable to answer admission questions. No family here, history pulled from prior admit information. Admission questions pulled from information in old chart/ED info. Will defer to day shift to complete admission questions if family visits tomorrow. Valuables were checked and documented.
[2020-07-24] MEDS ORDERED: INFLUENZA VAX SCREEN BY RX. MC PRN (01:00)
[2020-07-24 03:35] VITALS: BP 153/77
[2020-07-24 07:00] VITALS: BP 125/66
[2020-07-24 07:58] LABS: BASO % 0 % (0-3); EOS % 0 % (0-3); HEMATOCRIT 34.5 % (36.0-47.0); HEMOGLOBIN 11.3 g/dL (12.0-15.5); LYMPH # 1.3 x10^3/uL (1.0-4.8); LYMPH % 15 % (24-48); MEAN CORPUSCULAR HEMOGLOBIN 29 pg (25-35); MEAN CORPUSCULAR HGB CONC 33 g/dL (31-37); MEAN CORPUSCULAR VOLUME 89 fL (79-100); MONO # 0.6 x10^3/uL (0.0-1.1); MONO % 7 % (0-9); NEUT # 6.7 x10^3/uL (1.8-7.7); NEUT % 77 % (31-73); PLATELET COUNT 248 x10^3/uL (140-400); RED BLOOD COUNT 3.89 x10^6/uL (3.50-5.40); RED CELL DISTRIBUTION WIDTH 15.1 % (11.5-14.5); WHITE BLOOD COUNT 8.6 x10^3/uL (4.0-11.0)
[2020-07-24 08:29] LABS: ALBUMIN 2.9 g/dL (3.4-5.0); ALBUMIN/GLOBULIN RATIO 0.7 (1.0-1.7); CALCIUM 8.7 mg/dL (8.5-10.1); GFR 63.5; TOTAL BILIRUBIN 0.6 mg/dL (0.2-1.0); TOTAL PROTEIN 7.3 g/dL (6.4-8.2)
[2020-07-24] MEDS ORDERED: ACETAMINOPHEN 325 MG TABLET. PO PRN (09:30)
--- NOTE | 2020-07-24 10:09 | NUR ---
SW following. Discussed with RN, pt from home with her sister, room air, ada diet. IV abx, wound care consulted. PT/OT ordered. SW will continue to follow.
--- NOTE | 2020-07-24 10:39 | EKG ---
[facility] [address] [place] [address] Test Date: 2020-07-23 Test Time: 16:35:32 Pat Name: NANETTE HIGH Department: Room: Gender: F [employer] Functional Analyst: : 1935 Requested By: KOLBY ACUNA Order Number: [id number] Reading MD: Measurements Intervals [place] Rate: 70 P: MO: QRS: 28 QRSD: 78 T: 93 QT: 400 QTc: 435 Interpretive Statements IRREGULAR RHYTHM, NO P-WAVE FOUND T ABNORMALITY IN HIGH LATERAL LEADS ABNORMAL ECG RI6.02 No previous ECG available for comparison
--- NOTE | 2020-07-24 10:43 | PDOC ---
Provider Note Date of Service: DATE: 07/24/20 TIME: 10:42 Provider Note History and physical dictated #[id number] Justifications for Admission Other Justification DONNA BAEZA MD Jul 24, 2020 10:43
[2020-07-24 11:00] VITALS: BP 138/60
--- NOTE | 2020-07-24 11:03 | HP ---
ADMIT DATE: HISTORY OF PRESENT ILLNESS: This 85-year-old -[place]i female who has a history of Alzheimer's disease and who is declining with weight loss and had developed new wounds on the right hip as well as wound on the upper back that was healing, was recently seen in the office. Home health nursing was started, wound care was advised and hospice option was also discussed with the family. The patient was also started on mirtazapine to help her anxiety and insomnia as well as her appetite. She was started on 7.5 mg daily at bedtime. Because the patient remained weak and was not getting better, the patient was brought to the emergency room. In the emergency room, the patient was noted to have WBC of 11.8, which is 8.6 today, hemoglobin 12 that is decreased to 11.3 today. Sodium 141, potassium 4.1, BUN 13, creatinine 1.1, albumin 3.2, AST 24, ALT 23. Cardiac enzymes were normal. BNP was 157. Urine drug screen was negative. Urinalysis showed nitrite positive, moderate leukocyte esterase, wbc's count 11-20, moderate bacteria. CT scan of head did not show any acute changes and showed atrophic changes and evidence of chronic small vessel disease. Chest x-ray showed elevated right diaphragm, no acute infiltrates. Because of the acute urinary tract infection, weakness getting worse and multiple wounds with UTI, the patient was admitted for further evaluation and management. She was also noted to have dehydration and was given IV fluids. REVIEW OF SYSTEMS: The patient is confused. She is smiling and happy, but quite confused and unable to provide any information. Unable to do systems review. She has been losing weight and is getting weaker per family. PAST MEDICAL HISTORY: The patient has a history of recurrent UTI, previous dehydration, weakness, diverticulosis and diverticulitis, Alzheimer disease with behavioral disturbance, peripheral vascular disease, history of syncope, hypertension, history of coronary artery disease and hyperlipidemia. ALLERGIES: None known any. PAST SURGICAL HISTORY: Not available. FAMILY HISTORY: Mother had hypertension. Sister has diabetes mellitus type 2 and another sister has hypertension. SOCIAL HISTORY: No history of smoking, alcoholism or drug abuse. She lives at home with help from family and caregiver. MEDICATIONS: Reviewed and reconciled. PHYSICAL EXAMINATION: VITAL SIGNS: Blood pressure 93/48 mmHg, pulse 64 per minute, respirations 16 per minute, temperature 98.4 degrees Fahrenheit. GENERAL: The patient is an elderly -S[place]i female who is alert, confused, not in acute distress. EYES: Pupils reacting to light. Conjunctivae pale. Sclerae muddy. HENT: Unremarkable. This is a partial exam. NECK: Supple. JVP normal. No thyromegaly. LUNGS: Decreased breath sounds at bases. CARDIOVASCULAR SYSTEM: S1, S2 regular. ABDOMEN: Soft, nontender, no guarding, no rigidity. Bowel sounds present. EXTREMITIES: No edema. CENTRAL NERVOUS SYSTEM: Generalized weakness. Alert, weak and quite confused. She is not following all the commands and not cooperative with some of them. SKIN: Warm and dry. I am not able to do full exam at this time, but in the office, she was noted to have two wounds on her right hip. There is a healing wound on the upper back. This was also discussed with the nursing staff and they have taken pictures. LABORATORY FINDINGS: As noted earlier. IMPRESSION: 1. Acute urinary tract infection. 2. Dehydration and hypotension, improving. 3. Right hip wounds. 4. Alzheimer's disease with behavioral disturbance. 5. Generalized weakness. 6. Hypertension. 7. History of coronary artery disease. 8. Hyperlipidemia. PLAN: Continue IV Rocephin. The patient was given IV fluids in the emergency room. We will monitor her. If her oral intake does not improve, then she will need more IV fluids. Consult wound care team, the patient has right hip wounds. The patient was also ordered hospital bed from the office. Prognosis of this patient is extremely poor. For details, please refer to the orders. DONNA BAEZA MD DR: MARITZA/li JOB#: [id number] / [id number]
[2020-07-24] MEDS: ASPIRIN ENTERIC COATED 81 MG TABLET.DR. PO SCH (11:25)
[2020-07-24] MEDS: amLODIPine BESYLATE 5 MG TABLET PO SCH (11:26)
[2020-07-24] MEDS: SENNOSIDES 8.6 MG TABLET PO SCH ×2 (11:26→20:35)
[2020-07-24] MEDS: ATORVASTATIN CALCIUM 20 MG TABLET PO SCH (11:26)
[2020-07-24] MEDS: SERTRALINE 50 MG TABLET. PO SCH (11:27)
[2020-07-24] MEDS: busPIRone 5 MG TABLET. PO SCH ×2 (14:21→20:35)
[2020-07-24 15:00] VITALS: BP 147/72
--- NOTE | 2020-07-24 16:50 | NUR ---
Wound Care Wound Type/Assessment: Pt seen for R hip and coccyx wounds, see wound assessments. Assisted pt back to bed from recliner x3 assist. Dressings removed, R hip appears to be a healing pressure ulcer of unknown stage at this time, slough covered, making it Unstageable. Light pink epithelialization in periwound, no fluctuance noted. Coccyx has a pus filled vesicle/blister, with periwound redness, blister remains intact. Treatment Recommendations/Plan: R hip-cleanse wound with saline, apply Medihoney gel, cover with Xeroform gauze and a foam dressing, change every 3 days. Coccyx-cleanse with saline, apply foam dressing for protection. Education provided: Pt unable to comprehend teaching at this time. POC discussed with RON Shepherd. Offloading surface/device: Turn Q2H, wedge and pillows to offload, w/c cushion while in chair. Recommended Referrals/Tests: n/a Discharge Recommendations for dressings: see treatment plan above
[2020-07-24 19:00] VITALS: BP 102/70
[2020-07-24] MEDS: DONEPEZIL HCL 5 MG TABLET. PO SCH (20:35)
[2020-07-24] MEDS: cefTRIAXone IV Push 1 GM VIAL. IVP SCH (20:36)
[2020-07-24 23:00] VITALS: BP 116/59
[2020-07-25 03:04] VITALS: BP 142/64
[2020-07-25 07:00] VITALS: BP 112/54
[2020-07-25 07:24] LABS: BASO % 0 % (0-3); EOS % 1 % (0-3); HEMATOCRIT 31.4 % (36.0-47.0); HEMOGLOBIN 10.5 g/dL (12.0-15.5); LYMPH # 1.3 x10^3/uL (1.0-4.8); LYMPH % 16 % (24-48); MEAN CORPUSCULAR HEMOGLOBIN 30 pg (25-35); MEAN CORPUSCULAR HGB CONC 34 g/dL (31-37); MEAN CORPUSCULAR VOLUME 88 fL (79-100); MONO # 0.5 x10^3/uL (0.0-1.1); MONO % 7 % (0-9); NEUT # 6.3 x10^3/uL (1.8-7.7); NEUT % 77 % (31-73); PLATELET COUNT 254 x10^3/uL (140-400); RED BLOOD COUNT 3.55 x10^6/uL (3.50-5.40); RED CELL DISTRIBUTION WIDTH 14.8 % (11.5-14.5); WHITE BLOOD COUNT 8.2 x10^3/uL (4.0-11.0)
[2020-07-25] MEDS: amLODIPine BESYLATE 5 MG TABLET PO SCH (08:13)
[2020-07-25] MEDS: ATORVASTATIN CALCIUM 20 MG TABLET PO SCH (08:13)
[2020-07-25] MEDS: ASPIRIN ENTERIC COATED 81 MG TABLET.DR. PO SCH (08:13)
[2020-07-25] MEDS: SERTRALINE 50 MG TABLET. PO SCH (08:13)
[2020-07-25] MEDS: busPIRone 5 MG TABLET. PO SCH ×3 (08:13→22:15)
[2020-07-25] MEDS: SENNOSIDES 8.6 MG TABLET PO SCH ×2 (08:13→21:18)
[2020-07-25 08:27] LABS: ALBUMIN 2.7 g/dL (3.4-5.0); ALBUMIN/GLOBULIN RATIO 0.8 (1.0-1.7); CALCIUM 8.1 mg/dL (8.5-10.1); CREATININE 0.9 mg/dL (0.6-1.0); GFR 71.7; POTASSIUM 3.7 mmol/L (3.5-5.1); TOTAL BILIRUBIN 0.4 mg/dL (0.2-1.0); TOTAL PROTEIN 6.1 g/dL (6.4-8.2)
[2020-07-25 11:00] VITALS: BP 105/45
--- NOTE | 2020-07-25 11:21 | PDOC ---
PROGRESS NOTES Date of Service: DATE: 07/25/20 TIME: 11:19 Subjective Subjective no new problems Objective Objective Vital Signs Date Time Temp Pulse Resp B/P (MAP) Pulse Ox O2 Delivery O2 Flow Rate FiO2 07/25/20 08:13 72 112/54 07/25/20 08:00 Room Air 07/25/20 07:00 98.6 16 95 98.6 Intake and Output 07/25/20 07:00 Intake Total 400 ml Balance 400 ml Intake Oral 400 ml # Voids 3 Physical Exam Abdomen: Normal bowel sounds Heart: Normal S1, Normal S2 Extremities: No clubbing, No cyanosis General: No acute distress HEENT: Atraumatic Lungs: Clear to auscultation MUSCULOSKELETAL: Osteoarthritic changes both hands Neck: Supple Neuro: Normal speech Psych/Mental Status: Other (pleasently confused) Skin: No rashes Diagnosis Problem List Problems Medical Problems: (1) AMS (altered mental status) Status: Acute (2) UTI (urinary tract infection) Status: Acute Assessment Assessment Problems Medical Problems: (1) AMS (altered mental status) Status: Acute (2) UTI (urinary tract infection) Status: Acute IMPRESSION: 1. Acute urinary tract infection. 2. Dehydration and hypotension, improving. 3. Right hip wounds. 4. Alzheimer's disease with behavioral disturbance. 5. Generalized weakness. 6. Hypertension. 7. History of coronary artery disease. 8. Hyperlipidemia. PLAN: Continue IV Rocephin. urine c/s E coli. labs good d/c iv fluids. The patient was given IV fluids in the emergency room. We will monitor her. If her oral intake does not improve, then she will need more IV fluids. Consult wound care team, the patient has right hip wounds. The patient was also ordered hospital bed from the office. Prognosis of this patient is extremely poor. For details, please refer to the orders. Plan Plan of Care Problems Medical Problems: (1) AMS (altered mental status) Status: Acute (2) UTI (urinary tract infection) Status: Acute Comment Review of Relevant I have reviewed the following items ludin (where applicable) has been applied. Labs Laboratory Tests Test 07/25/20 06:15 White Blood Count 8.2 x10^3/uL (4.0-11.0) Red Blood Count 3.55 x10^6/uL (3.50-5.40) Hemoglobin 10.5 g/dL (12.0-15.5) Hematocrit 31.4 % (36.0-47.0) Mean Corpuscular Volume 88 fL (79-100) Mean Corpuscular Hemoglobin 30 pg (25-35) Mean Corpuscular Hemoglobin Concent 34 g/dL (31-37) Red Cell Distribution Width 14.8 % (11.5-14.5) Platelet Count 254 x10^3/uL (140-400) Neutrophils (%) (Auto) 77 % (31-73) Lymphocytes (%) (Auto) 16 % (24-48) Monocytes (%) (Auto) 7 % (0-9) Eosinophils (%) (Auto) 1 % (0-3) Basophils (%) (Auto) 0 % (0-3) Neutrophils # (Auto) 6.3 x10^3/uL (1.8-7.7) Lymphocytes # (Auto) 1.3 x10^3/uL (1.0-4.8) Monocytes # (Auto) 0.5 x10^3/uL (0.0-1.1) Eosinophils # (Auto) 0.0 x10^3/uL (0.0-0.7) Basophils # (Auto) 0.0 x10^3/uL (0.0-0.2) Sodium Level 143 mmol/L (136-145) Potassium Level 3.7 mmol/L (3.5-5.1) Chloride Level 107 mmol/L (98-107) Carbon Dioxide Level 25 mmol/L (21-32) Anion Gap 11 (6-14) Blood Urea Nitrogen 15 mg/dL (7-20) Creatinine 0.9 mg/dL (0.6-1.0) Estimated GFR (Cockcroft-Gault) 71.7 BUN/Creatinine Ratio 17 (6-20) Glucose Level 69 mg/dL (70-99) Calcium Level 8.1 mg/dL (8.5-10.1) Total Bilirubin 0.4 mg/dL (0.2-1.0) Aspartate Amino Transf (AST/SGOT) 27 U/L (15-37) Alanine Aminotransferase (ALT/SGPT) 23 U/L (14-59) Alkaline Phosphatase 92 U/L (46-116) Total Protein 6.1 g/dL (6.4-8.2) Albumin 2.7 g/dL (3.4-5.0) Albumin/Globulin Ratio 0.8 (1.0-1.7) Microbiology 07/23/20 Urine Culture - Preliminary, Resulted 07/23/20 Blood Culture - Preliminary, Resulted NO GROWTH AFTER 1 DAY Medications Current Medications Buspirone HCl (Buspar) 5 mg TID PO Last administered on 07/25/20at 08:13; Start 07/24/20 at 14:00 Ceftriaxone Sodium (Rocephin) 1 gm Q24H IVP Last administered on 07/24/20at 20:36; Start 07/24/20 at 21:00 Donepezil HCl (Aricept) 5 mg QHS PO Last administered on 07/24/20at 20:35; Start 07/24/20 at 21:00 Vitals/I & O Vital Sign - Last 24 Hours 07/24/20 07/24/20 07/24/20 07/24/20 11:26 15:00 19:00 20:00 Temp 98.0 97.5 98.0 97.5 Pulse 73 74 72 Resp 16 18 B/P (MAP) 138/60 147/72 (97) 102/70 (81) Pulse Ox 98 100 O2 Delivery Room Air Room Air Room Air 07/24/20 07/25/20 07/25/20 07/25/20 23:00 03:04 07:00 08:00 Temp 97.5 97.7 98.6 97.5 97.7 98.6 Pulse 78 74 72 Resp 18 18 16 B/P (MAP) 116/59 (78) 142/64 (90) 112/54 (73) Pulse Ox 100 100 95 O2 Delivery Room Air Room Air Room Air Room Air 07/25/20 08:13 Pulse 72 B/P (MAP) 112/54 Intake and Output 07/24/20 07/24/20 07/25/20 15:00 23:00 07:00 Intake Total 50 ml 350 ml Balance 50 ml 350 ml Justifications for Admission Other Justification Nutrition Consultation Dietary Evaluation: Recommendations by RD: Dietary education by RD, Increase Calorie Intake, Protein supplementation Comments: REC Cardiac diet per PMH REC Doc BID REC snacks and supplements from unit prn Expected Outcomes/Goals: improvement of wound status intake >75% est needs. Malnutrition Findings: Food and Nutrition Intake (Sev: <50% est energy req 5days Body Fat Depletion (Non Severe: Mod to Severe Weight Status: Underweight AIMEE CASTRO MD Jul 25, 2020 11:21
[2020-07-25 15:00] VITALS: BP 122/50
[2020-07-25 19:00] VITALS: BP 108/50
[2020-07-25] MEDS: LACTOBACILLUS RHAMNOSUS GG 1 CAPSULE. PO SCH (21:18)
[2020-07-25] MEDS: cefTRIAXone IV Push 1 GM VIAL. IVP SCH (21:18)
[2020-07-25] MEDS: DONEPEZIL HCL 5 MG TABLET. PO SCH (21:18)
[2020-07-25 23:00] VITALS: BP 114/64
[2020-07-26 03:00] VITALS: BP 138/74
--- NOTE | 2020-07-26 04:54 | NUR ---
Tylenol 650mg administered for 100.1 Axillary temp
[2020-07-26 07:00] VITALS: BP 110/64
[2020-07-26] MEDS: amLODIPine BESYLATE 5 MG TABLET PO SCH (08:29)
[2020-07-26] MEDS: ASPIRIN ENTERIC COATED 81 MG TABLET.DR. PO SCH (08:29)
[2020-07-26] MEDS: LACTOBACILLUS RHAMNOSUS GG 1 CAPSULE. PO SCH ×2 (08:29→21:05)
[2020-07-26] MEDS: ATORVASTATIN CALCIUM 20 MG TABLET PO SCH (08:29)
[2020-07-26] MEDS: SERTRALINE 50 MG TABLET. PO SCH (08:29)
[2020-07-26] MEDS: busPIRone 5 MG TABLET. PO SCH ×3 (08:29→21:05)
[2020-07-26] MEDS: SENNOSIDES 8.6 MG TABLET PO SCH ×2 (08:29→21:05)
--- NOTE | 2020-07-26 09:11 | PDOC ---
IM PROGRESS NOTES- Subjective Subjective Patient is a poor historian. She denies any pain. Objective Vitals/I&O Vital Signs Date Time Temp Pulse Resp B/P (MAP) Pulse Ox O2 Delivery O2 Flow Rate FiO2 07/26/20 08:29 104 110/64 07/26/20 07:23 Room Air 07/26/20 07:00 97.8 18 100 97.8 I & O 07/25/20 07/25/20 07/26/20 15:00 23:00 07:00 Intake Total 0 ml Balance 0 ml Physical Exam Physical Exam General appearance - alert,well appearing, and in no distress and oriented to person, place, and time Mental Status - alert, oriented to person, place, and time, affect appropriate to mood Head - normal Chest - clear to auscultation, no wheezes, rales or rhonchi, symmetric air entry Heart - S1 and S2 normal Abdomen - soft, nontender, nondistended, no masses or organomegaly Neurological - alert and oriented Musculoskeletal - no muscular tenderness noted Extremities - no pedal edema Skin - warm and dry Meds Current Medications Medications (Trade) Dose Ordered Sig/Jesus Route PRN Reason Start Time Stop Time Status Last Admin Dose Admin Lactobacillus Rhamnosus (Culturelle) 1 cap BID PO 07/25/20 21:00 07/26/20 08:29 Assessment Assessment Problems Medical Problems: (1) AMS (altered mental status) Status: Acute (2) UTI (urinary tract infection) Status: Acute IMPRESSION: 1. Acute urinary tract infection. 2. Dehydration and hypotension, improving. 3. Right hip wounds. 4. Alzheimer's disease with behavioral disturbance. 5. Generalized weakness. 6. Hypertension. 7. History of coronary artery disease. 8. Hyperlipidemia. PLAN: E. coli UTI - identification is pending. Patient is still running low-grade fever. Continue IV Rocephin. Physical deconditioning Weight loss Multiple wounds-continue wound care The patient was given IV fluids in the emergency room. We will monitor her. If her oral intake does not improve, then she will need more IV fluids. Consult wound care team, the patient has right hip wounds. The patient was also ordered hospital bed from the office. Prognosis of this patient is extremely poor. For details, please refer to the orders. Patient's oral intake is extremely poor. Discussed with patient's sister Niya on phone. Condition, treatment, options extensively discussed with her. Options such as hospice and shelter unit discussed with her. Patient is not a good candidate for PEG tube feeding and she also agrees with that. She does not want her to go to a long term when she is ready. She would like her to bring her back home with some home care. Plan Plan For more details regarding further plans, please refer to the orders. Justifications for Admission Other Justification Nutrition Consultation Dietary Evaluation: Recommendations by RD: Dietary education by RD, Increase Calorie Intake, Protein supplementation Comments: REC Cardiac diet per PMH REC Doc BID REC snacks and supplements from unit prn Expected Outcomes/Goals: improvement of wound status intake >75% est needs. Malnutrition Findings: Food and Nutrition Intake (Sev: <50% est energy req 5days Body Fat Depletion (Non Severe: Mod to Severe Weight Status: Underweight DONNA BAEZA MD Jul 26, 2020 09:11
[2020-07-26 11:00] VITALS: BP 105/55
--- NOTE | 2020-07-26 13:40 | NUR ---
Meteorological Engineer attempted to change and picture patients wound/dressings, patient yelled at resume writer and wanted to be "left alone". Will advise edge grinder to attempt dressing change tonight.
[2020-07-26 15:00] VITALS: BP 150/71
[2020-07-26 19:00] VITALS: BP 123/58
[2020-07-26] MEDS: DONEPEZIL HCL 5 MG TABLET. PO SCH (21:05)
[2020-07-26] MEDS: cefTRIAXone IV Push 1 GM VIAL. IVP SCH (21:05)
[2020-07-26] MEDS: MIRTAZAPINE 7.5 MG TABLET. PO SCH (21:05)
[2020-07-26 23:00] VITALS: BP 123/61
[2020-07-27 03:00] VITALS: BP 149/70
[2020-07-27 07:00] VITALS: BP 132/68
[2020-07-27] MEDS: ATORVASTATIN CALCIUM 20 MG TABLET PO SCH (08:50)
[2020-07-27] MEDS: amLODIPine BESYLATE 5 MG TABLET PO SCH (08:50)
[2020-07-27] MEDS: busPIRone 5 MG TABLET. PO SCH ×3 (08:50→21:21)
[2020-07-27] MEDS: LACTOBACILLUS RHAMNOSUS GG 1 CAPSULE. PO SCH ×2 (08:50→21:21)
[2020-07-27] MEDS: SENNOSIDES 8.6 MG TABLET PO SCH ×2 (08:51→21:22)
[2020-07-27] MEDS: CIPROFLOXACIN HCL 250 MG TABLET. PO SCH ×2 (08:51→21:23)
[2020-07-27] MEDS: ASPIRIN ENTERIC COATED 81 MG TABLET.DR. PO SCH (08:51)
[2020-07-27] MEDS: SERTRALINE 50 MG TABLET. PO SCH (08:51)
--- NOTE | 2020-07-27 09:13 | PDOC ---
IM PROGRESS NOTES- Subjective Subjective Patient is a poor historian. She is paranoid. She is not eating and spitting out all medications. Objective Vitals/I&O Vital Signs Date Time Temp Pulse Resp B/P (MAP) Pulse Ox O2 Delivery O2 Flow Rate FiO2 07/27/20 08:50 67 132/68 07/27/20 07:00 97.8 18 97 Room Air 97.8 I & O 07/26/20 07/26/20 07/27/20 15:00 23:00 07:00 Intake Total 0 ml Balance 0 ml Physical Exam Physical Exam General appearance - alert,well appearing, and in no distress and oriented to person, place, and time Mental Status - alert, oriented to person, place, and time, affect appropriate to mood Head - normal Chest - clear to auscultation, no wheezes, rales or rhonchi, symmetric air entry Heart - S1 and S2 normal Abdomen - soft, nontender, nondistended, no masses or organomegaly Neurological - alert and oriented Musculoskeletal - no muscular tenderness noted Extremities - no pedal edema Skin - warm and dry Meds Current Medications Medications (Trade) Dose Ordered Sig/Jesus Route PRN Reason Start Time Stop Time Status Last Admin Dose Admin Mirtazapine (Remeron) 7.5 mg QHS PO 07/26/20 21:00 07/26/20 21:05 Sertraline HCl (Zoloft) 25 mg DAILY PO 07/27/20 09:00 07/27/20 08:51 Ciprofloxacin (Cipro) 250 mg BID PO 07/27/20 09:00 07/27/20 08:51 Assessment Assessment Problems Medical Problems: (1) AMS (altered mental status) Status: Acute (2) UTI (urinary tract infection) Status: Acute IMPRESSION: 1. Acute urinary tract infection. 2. Dehydration and hypotension, improving. 3. Right hip wounds. 4. Alzheimer's disease with behavioral disturbance. 5. Generalized weakness. 6. Hypertension. 7. History of coronary artery disease. 8. Hyperlipidemia. PLAN: E. coli UTI -resistant to cephalosporins. Change to oral Cipro. May need to give IV if patient declines to take it. Physical deconditioning Weight loss Multiple wounds-continue wound care The patient was given IV fluids in the emergency room. We will monitor her. If her oral intake does not improve, then she will need more IV fluids. Consult wound care team, the patient has right hip wounds. The patient was also ordered hospital bed from the office. Prognosis of this patient is extremely poor. For details, please refer to the orders. Alzheimer's disease with behavioral disturbance. Patient is not eating. She is spitting out medications. Prognosis of this patient is extremely poor. I advised the staff that if she does not take p.o. Cipro then change it to IV. Patient refused blood testing. Patient's oral intake is extremely poor. Discussed with patient's sister Niya on phone. Condition, treatment, options extensively discussed with her. Options such as hospice and long term unit discussed with her. Patient is not a good candidate for PEG tube feeding and she also agrees with that. She does not want her to go to a alf when she is ready. Consult [facility] for evaluation and treatment. Family is open about discussion for hospice. Plan Plan For more details regarding further plans, please refer to the orders. Justifications for Admission Other Justification Nutrition Consultation Dietary Evaluation: Recommendations by RD: Dietary education by RD, Increase Calorie Intake, Protein supplementation Comments: REC Cardiac diet per [facility] REC Doc BID REC snacks and supplements from unit prn Expected Outcomes/Goals: improvement of wound status intake >75% est needs. Malnutrition Findings: Food and Nutrition Intake (Sev: <50% est energy req 5days Body Fat Depletion (Non Severe: Mod to Severe Weight Status: Underweight DONNA BAEZA MD Jul 27, 2020 09:13
[2020-07-27 09:27] LABS: BASO % 0 % (0-3); EOS % 0 % (0-3); HEMATOCRIT 38.2 % (36.0-47.0); HEMOGLOBIN 12.6 g/dL (12.0-15.5); LYMPH # 1.2 x10^3/uL (1.0-4.8); LYMPH % 13 % (24-48); MEAN CORPUSCULAR HEMOGLOBIN 29 pg (25-35); MEAN CORPUSCULAR HGB CONC 33 g/dL (31-37); MEAN CORPUSCULAR VOLUME 88 fL (79-100); MONO # 0.5 x10^3/uL (0.0-1.1); MONO % 6 % (0-9); NEUT # 7.6 x10^3/uL (1.8-7.7); NEUT % 81 % (31-73); PLATELET COUNT 278 x10^3/uL (140-400); RED BLOOD COUNT 4.32 x10^6/uL (3.50-5.40); RED CELL DISTRIBUTION WIDTH 15.1 % (11.5-14.5); WHITE BLOOD COUNT 9.4 x10^3/uL (4.0-11.0)
[2020-07-27 09:53] LABS: ALBUMIN/GLOBULIN RATIO 0.6 (1.0-1.7); CALCIUM 8.8 mg/dL (8.5-10.1); CREATININE 0.9 mg/dL (0.6-1.0); GFR 71.7; POTASSIUM 3.1 mmol/L (3.5-5.1); TOTAL BILIRUBIN 0.6 mg/dL (0.2-1.0); TOTAL PROTEIN 7.7 g/dL (6.4-8.2)
--- NOTE | 2020-07-27 10:41 | NUR ---
SW following. Discussed with RN, pt from home with sister, room air, cardiac diet. Per RN, family doesn't want hospice at this time. PT/OT recommending home with 24 hour care. RN anticipates possible discharge home tomorrow (07/28/20). SW will continue to follow. Addendum: 07/27/20 at 1442 by BABS STEWART SW Family have decided they do want to go home with hospice, and have chosen [facility]. SW confirmed with pt's sister, Niya. Clinicals faxed to [facility], they will meet to sign consents tomorrow (07/28/20) at 11am. Plan for pt to discharge home tomorrow. LBAKE will continue to follow.
[2020-07-27 11:00] VITALS: BP 136/57
[2020-07-27 19:00] VITALS: BP 154/73
[2020-07-27] MEDS: DONEPEZIL HCL 5 MG TABLET. PO SCH (21:21)
[2020-07-27] MEDS: MIRTAZAPINE 7.5 MG TABLET. PO SCH (21:22)
[2020-07-27 23:00] VITALS: BP 136/68
[2020-07-28 03:00] VITALS: BP 125/62
[2020-07-28 07:00] VITALS: BP 136/70
[2020-07-28] MEDS: ASPIRIN ENTERIC COATED 81 MG TABLET.DR. PO SCH (08:27)
[2020-07-28] MEDS: SENNOSIDES 8.6 MG TABLET PO SCH (08:27)
[2020-07-28] MEDS: busPIRone 5 MG TABLET. PO SCH (08:27)
[2020-07-28] MEDS: CIPROFLOXACIN HCL 250 MG TABLET. PO SCH (08:27)
[2020-07-28] MEDS: LACTOBACILLUS RHAMNOSUS GG 1 CAPSULE. PO SCH (08:27)
[2020-07-28] MEDS: amLODIPine BESYLATE 5 MG TABLET PO SCH (08:27)
[2020-07-28] MEDS: SERTRALINE 50 MG TABLET. PO SCH (08:27)
[2020-07-28] MEDS: ATORVASTATIN CALCIUM 20 MG TABLET PO SCH (08:28)
[2020-07-28] MEDS ORDERED: POTASSIUM CHLORIDE 20 MEQ TABLET.ER. PO ONE (09:00)
[2020-07-28] MEDS ORDERED: LACT1CAP19 PO (09:39)
[2020-07-28] MEDS ORDERED: MIRT7.5T8 PO (09:39)
[2020-07-28] MEDS ORDERED: CIPR250T30 PO (09:39)
[2020-07-28] MEDS ORDERED: ACET325T21 PO (09:39)
--- NOTE | 2020-07-28 09:42 | SNU/HH DC ---
DISCHARGE ORDERS DISCHARGE INFORMATION: FINAL DIAGNOSIS Problems Medical Problems: (1) AMS (altered mental status) Status: Acute (2) UTI (urinary tract infection) Status: Acute CONDITION ON DISCHARGE: Guarded HOSPICE: HOSPICE: Yes ([facility]) POST DISCHARGE ORDERS: ACTIVITY ORDERS: Activity as tolerated WEIGHT BEARING STATUS: No restrictions DIET AFTER DISCHARGE: Mechanical soft WOUND/INCISION CARE: No wound care needed OTHER WOUND INSTRUCTIONS: continue wound care OTHER ORDERS: Ensure one can po tid FOLLOW-UP: PHYSICIAN FOLLOW-UP: Dr.Pratip Baeza as needed TREATMENT/EQUIPMENT ORDERS: ADAPTIVE EQUIPMENT NEEDED: None Physical Therapy For: Evalulation/Treatment Occupational Therapy For: Evaluation/Treatment DISCHARGE MEDICATIONS: Home Meds Active Scripts Acetaminophen (ACETAMINOPHEN) 325 Mg Tablet, 650 MG PO PRN Q6HRS PRN for MILD PAIN / TEMP > 100.3'F for 7 Days, #20 TAB Prov:DONNA BAEZA MD 07/28/20 Mirtazapine (MIRTAZAPINE) 7.5 Mg Tablet, 7.5 MG PO QHS for Anxiety for 30 Days, #30 TAB Prov:DONNA BAEZA MD 07/28/20 Lactobacillus Rhamnosus Gg (CULTURELLE) 1 Each Cap.sprink, 1 CAP PO BID for Use of antibiotics for 5 Days, #10 CAP Prov:DONNA BAEZA MD 07/28/20 Ciprofloxacin Hcl (CIPRO) 250 Mg Tablet, 250 MG PO BID for UTI for 5 Days, #10 TAB Prov:DONNA BAEZA MD 07/28/20 Reported Medications Buspirone Hcl (BUSPIRONE HCL) 5 Mg Tablet, 1 TAB PO TID for anxiety, #60 TAB 2 Refills 03/22/19 Aspirin (ASPIR 81) 81 Mg Tablet.dr, 1 TAB PO DAILY, #30 TAB 5 Refills 04/18/17 Amlodipine Besylate (AMLODIPINE BESYLATE) 5 Mg Tablet, 5 MG PO DAILY, TAB 04/18/17 Sennosides (SENOKOT) 8.6 Mg Tablet, 1 TAB PO BID, #40 TAB 06/03/16 Donepezil Hcl (ARICEPT) 5 Mg Tablet, 1 TAB PO QHS, #30 TAB 5 Refills 06/03/16 Discontinued Reported Medications Pyridoxine Hcl (VITAMIN B-6) 50 Mg Capsule, 50 MG PO DAILY, CAP 04/18/17 Sertraline Hcl (ZOLOFT) 50 Mg Tablet, 1 TAB PO DAILY, #30 TAB 2 Refills 04/18/17 Melatonin (MELATONIN) 3 Mg Tablet, 5 MG PO HS, TAB 04/18/17 Atorvastatin Calcium (ATORVASTATIN CALCIUM) 20 Mg Tablet, 1 TAB PO DAILY, #30 TAB 5 Refills 06/03/16 Discontinued Scripts Cephalexin (KEFLEX) 500 Mg Capsule, 1 CAP PO Q8HRS, #21 CAP 0 Refills Prov:KEYSHA PURCELL MD 05/21/19 Metronidazole (FLAGYL) 500 Mg Tablet, 1 TAB PO BID for diverticulitis for 7 Days, #14 TAB Prov:AIMEE CASTRO MD 04/20/19 Ciprofloxacin Hcl (CIPRO) 500 Mg Tablet, 1 TAB PO BID for diverticulitis for 7 Days, #14 TAB 0 Refills Prov:AIMEE CASTRO MD 04/20/19 DONNA BAEZA MD Jul 28, 2020 09:42
--- NOTE | 2020-07-28 09:53 | PDOC3 ---
IM DISCHARGE SUMMARY Date of Admission Date of Admission Date of Admission: Jul 23, 2020 at 19:29 Date of Discharge Date of Discharge July 28, 2020 Primary Diagnosis Primary Diagnosis 1. Acute urinary tract infection. 2. Dehydration and hypotension, improving. 3. Right hip wounds. 4. Alzheimer's disease with behavioral disturbance. 5. Generalized weakness. 6. Hypertension. 7. History of coronary artery disease. 8. Hyperlipidemia. Consults Consults Brief hospital course Brief hospital course This 85-year-old -[place] female who has a history of Alzheimer's disease and who is declining with weight loss and had developed new wounds on the right hip as well as wound on the upper back that was healing, was recently seen in the office. Home health nursing was started, wound care was advised and hospice option was also discussed with the family. The patient was also started on mirtazapine to help her anxiety and insomnia as well as her appetite. She was started on 7.5 mg daily at bedtime. Because the patient remained weak and was not getting better, the patient was brought to the emergency room. In the emergency room, the patient was noted to have WBC of 11.8, which is 8.6 today, hemoglobin 12 that is decreased to 11.3 today. Sodium 141, potassium 4.1, BUN 13, creatinine 1.1, albumin 3.2, AST 24, ALT 23. Cardiac enzymes were normal. BNP was 157. Urine drug screen was negative. Urinalysis showed nitrite positive, moderate leukocyte esterase, wbc's count 11-20, moderate bacteria. CT scan of head did not show any acute changes and showed atrophic changes and evidence of chronic small vessel disease. Chest x-ray showed elevated right diaphragm, no acute infiltrates. Because of the acute urinary tract infection, weakness getting worse and multiple wounds with UTI, the patient was admitted for further evaluation and management. She was also noted to have dehydration and was given IV fluids. For more details regarding the past history, family history, social history, surgical history and other details, please refer to History and Physical. E. coli UTI -resistant to cephalosporins. Change to oral Cipro. May need to give IV if patient declines to take it. Physical deconditioning Weight loss Multiple wounds-continue wound care The patient was given IV fluids in the emergency room. We will monitor her. If her oral intake does not improve, then she will need more IV fluids. Consult wound care team, the patient has right hip wounds. The patient was also ordered hospital bed from the office. Prognosis of this patient is extremely poor. For details, please refer to the orders. Alzheimer's disease with behavioral disturbance. Patient is not eating. She is spitting out medications. Prognosis of this patient is extremely poor. I advised the staff that if she does not take p.o. Cipro then change it to IV. Patient refused blood testing. Patient's oral intake is extremely poor. Discussed with patient's sister Niya on phone. Condition, treatment, options extensively discussed with her. Options such as hospice and usp unit discussed with her. Patient is not a good candidate for PEG tube feeding and she also agrees with that. She does not want her to go to a penitentiary when she is ready. Consult [facility] for evaluation and treatment. Patient's condition is not any better. Family has decided to proceed with hospice care. Will discharge her home today. Prognosis of this patient is extremely poor. Replace potassium. Order Ensure 1 can 3 times a day at home. For details please refer the orders. Medications Medications reviewed and reconciled for discharge. Allergy Allergies Coded Allergies Type Severity Reaction Last Updated Verified No Known Drug Allergies 06/02/16 No Follow up As needed. DISPOSITION: Home (Home with hospice) Comments Discharge Management - 35 minutes. For other details please refer to discharge instructions Justicifation of Admission Dx: Justifications for Admission: Justification of Admission Dx: DONNA Clemens MD Jul 28, 2020 09:53
[2020-07-28 11:00] VITALS: BP 121/69
--- NOTE | 2020-07-28 11:27 | NUR ---
SW following. Discussed with RN, pt from home with sister. Discharge order for home with hospice. Discharge orders faxed to [place]. Awaiting confirmation from [place] about whether pt needs stretcher transportation home, and what time their nurse will be at the patients home to admit. BLAKE will continue to follow. Addendum: 07/28/20 at 1234 by BABS LOZANO Stretcher transportation arranged for 1330 via [employer]. RN and pt's sister notified.
--- NOTE | 2020-07-28 13:36 | NUR ---
Pt. discharged to home with [facility] via EMS.
== END 2020-07-28 13:41 | disposition hospice, home (50) | DRG 690 ==
LOC: ER 14:33 → ED HOLD 19:29 → 4 NORTH 22:50
PROVIDERS: ADMIT Internal Medicine; ATTEND Internal Medicine
DX: N39.0 Urinary tract infection, site not specified (principal); F02.81 Dementia in other diseases classified elsewhere, unspecified severity, with behavioral disturbance; B96.20 Unspecified Escherichia coli [E. coli] as the cause of diseases classified elsewhere; E78.00 Pure hypercholesterolemia, unspecified; E78.5 Hyperlipidemia, unspecified; E86.0 Dehydration; F41.9 Anxiety disorder, unspecified; G30.9 Alzheimer's disease, unspecified; G47.00 Insomnia, unspecified; I11.0 Hypertensive heart disease with heart failure; I25.10 Atherosclerotic heart disease of native coronary artery without angina pectoris; I50.9 Heart failure, unspecified; I73.9 Peripheral vascular disease, unspecified; I95.9 Hypotension, unspecified; Z86.718 Personal history of other venous thrombosis and embolism; Z82.49 Family history of ischemic heart disease and other diseases of the circulatory system; Z83.3 Family history of diabetes mellitus
CPT/HCPCS: 36415; 70450; 71045; 80053; 80307; 81001; 82553; 83605; 83690; 83735; 83880; 84145; 84484; 85025; 87040; 87077; 87086; 87186; 93005; 96361; 96374; 99285; J0696; J7030; 97530-GO; 97530-GP; 97535-GO; G0378